=== PATIENT | male | born 1960 | race Caucasian/White ===

== ENCOUNTER 2019-11-03 08:00 | Outpatient (RCR) | payer BC, SELFPAY ==
--- NOTE | 2019-10-25 10:31 | PTOPEVAL ---
PHYSICAL THERAPY EVALUATION AND PLAN OF CARE 10-25-2019 The PT evaluation was completed for the diagnosis of vestibular/ gait imbalance. The plan of treatment is scheduled for 0-1x/week for 6 weeks. Thank you for referring Vamshi to [facility]. Please review, sign, date and return this plan of care OMAR. I agree with and certify that the following plan of care is medically necessary. Referring Physician Date Attending Provider: VIVEK PatrickPT Outpatient Evaluation Start: 10/25/19 09:19 Document 10/25/19 09:20 INDIGO (Rec: 10/25/19 10:31 INDIGO [id number]) Outpatient Past Medical History Neurological History Hx Neurological Disorders No Significant History Cardiovascular History Hx Hypertension Yes: meds control Respiratory History Hx Sleep Apnea Yes: CPAP for sleeping Hx Other Respiratory Disorders Yes: issues sinus infections Gastrointestinal History Hx Gastrointestinal Disorders No Significant History Genitourinary History Hx Other Genitourinary Disorders Yes: prostate problem Musculoskeletal History Hx Musculoskeletal Disorders No Significant History Hematological History Hx Hematological Disorders No Significant History Endocrine History Hx Diabetes Yes: borderline diabetic - watching diet HEENT History Hx Other HEENT Disorders Yes: ears stopped up -ear wax removal few times/yr Integumentary History Hx Other Skin Disorders Yes: fungal infection on groin Psychosocial History Hx Anxiety Yes: on meds Evaluation Information Problem Diagnosis balance/vertigo Onset Jul 22, 2019 Subjective Information gradually more dizziness in Query Text:As Reported By Patient/ July; saw neurologist in Family past for dizziness, not seen recently, but talked to his nurse, and was referred to ENT ; ENT--refer to therapy, may need to have MRI head; completed antibiotics--cleared sinus infection; In past- about 4 yr ago, had vertigo, went to PT, resolved; Have had few short bouts of dizziness with allergies and when first get up in the morning; Diagnostic Tests X-Rays For This Problem No MRI For This Problem No Other Tests For This Problem No Previous Treatments Previous Treatments For This Problem 4 years ago with dizziness had test for brain- was negative Prior Level of Function Activity Level (Last 3 Months) Occupation
--- NOTE | 2019-11-09 11:40 | PCPTNOTE ---
Patient did not show up for scheduled appointment this date. Called patient, and had to leave a message for him to call back.
--- NOTE | 2019-12-09 11:47 | PCPTNOTE ---
PHYSICAL THERAPY DISCHARGE 12-09-2019 Attending Provider: Nan Mcclellan PA-C Patient:Vamshi Sandoval Date of :1960 Mr. Joy received the PT evaluation on October 25 and one treatment session on November 03, for the diagnosis of vestibular issues and balance disorder. He has not returned for any further treatments, therefore he will be discharged from therapy at this time. The goals were not assessed. Thank you for referring Vamshi to [facility]. Please review, sign, date and return this discharge summary OMAR. I have been updated about the patient's current status and I agree with discharge from the above service at this time. Referring Physician Date
== END 2019-12-09 12:36 | disposition hospice, home (50) ==
LOC: ANHPT 08:00
DX: R26.89 Other abnormalities of gait and mobility (principal)
CPT/HCPCS: 97110; 97162

== ENCOUNTER 2025-02-23 11:06 | Outpatient (CLI) | payer BC, SELFPAY ==
--- NOTE | ~2025-02-23 | XR_ITS ---
Lumbosacral Spine: AP and lateral views Clinical History: Pain Findings: The normal lordotic curve is maintained. The vertebral bodies and posterior elements are i ntact. Mild degenerative changes are present lumbar spine. There is severe facet arthropathy, especia lly from L3 through S1. The sacroiliac joints are normally outlined. Impression: Moderate degenerative spondylosis overall, with extensive facet arthropathy. Reviewed, dictated and finalized at location M. Impression: Moderate degenerative spondylosis overall, with extensive facet arthropathy.
== END 2025-02-23 11:07 | disposition home or self-care (01) ==
LOC: MICIMG 11:08
PROVIDERS: PCP Chiropractor; Visit Provider Chiropractor
DX: M99.03 Segmental and somatic dysfunction of lumbar region (principal); M99.04 Segmental and somatic dysfunction of sacral region; M99.05 Segmental and somatic dysfunction of pelvic region; Z85.46 Personal history of malignant neoplasm of prostate; M47.897 Other spondylosis, lumbosacral region
CPT/HCPCS: 72100

== ENCOUNTER 2025-09-16 12:06 | Emergency (ER) | payer BC, SELFPAY ==
--- NOTE | ~2025-09-16 | XR_ITS ---
EXAMINATION: XR chest 2V DATE: 09/16/2025 14:23 INDICATION: Cough. TECHNIQUE: Frontal and lateral views of the chest were obtained. COMPARISON: None. FINDINGS: Heart size is normal. Significant atherosclerotic aorta. No definite acute pulmonary findings. IMPRESSION: 1. No acute pulmonary findings. Severe atherosclerotic aorta. Reviewed, dictated and finalized at location T. NT CARE COORDINATOR
[2025-09-16 12:08] VITALS: BP 143/94; PULSE 77; RESP 16; TEMP 36.4; O2SAT 98
--- OUTSIDE RECORDS SUMMARY | 2025-09-16 12:08 | XMS_ITS | Encounter Summary ---
Author Organization [facility] Address [address] [place] [address] Phone Care Team Providers Care Rewinder Operator Helper Name Role Phone Charlie Berry MD Unavailable Edelmira Ontiveros APRN, CNP Primary Care P rovider Lisa John MD Primary Care Provider Unava ilable Edelmira Ontiveros APRN, CNP Primary Care P rovider Reason for Visit * Reason Comments Medication Refill Encounter Details Date Type Department Care Team (Late st Contact Info) Description 04/30/2024 Refill [facility] - Primary Care - [place] [address] [place] [address] Kaushal Vanegas PAC [address] [place] [address] Medication Refill Social History Tobacco Use Types Packs/Day Years Used Date Smoking Tobacco: Never Smokeless Tobacco: Never Alcohol Use Standard Drinks/Week Comments Yes 0 (1 standard drink = 0.6 oz pur e alcohol) occasionally PHQ-2 Answer Date Recorded PHQ-2 Score 1 05/23/2019 Education Answer Date Recorded What is the highest level of school you have completed or the highest degree you have received? 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 documented in this encounter Plan of Treatment Not on file documented as of this encounter Visit Diagnoses Diagnosis Essential hypertension Unspecified essential hypertension documented in this encounter Additional Health Concerns Assessment Noted Time PHQ-9 Depression Total Score: 1 11/10/19 19 2:00 PM YOUTH ASSOCIATE documented as of this encounter Care Teams Rewinder Operator Helper Relationship Specialty Start Date End Date Edelmira Ontiveros APRN, CRISTIAN [address] [place] [address] PCP - General Advanced Practice Nurse 10/26/23 Lisa John MD PCP - General Urology 04/05/25 04/09/25 Edelmira Ontiveros APRN, LINOTYPER [address] [place] [address] PCP - General Advanced Practice Nurse 04/10/25 Charlie Berry MD [address] [place] [phone] Neurologist Neurology 05/13/18 documented as of this encounter
--- OUTSIDE RECORDS SUMMARY | 2025-09-16 12:08 | XMS_ITS | Encounter Summary ---
Author Organization [facility] Address [address] [place] [address] Phone Care Team Providers Care Panel Machine Operator Name Role Phone Charlie Berry MD Unavailable Edelmira Ontiveros APRN, CNP Primary Care P rovider Lisa oJhn MD Primary Care Provider Unava ilable Edelmira Ontiveros APRN, CNP Primary Care P rovider Reason for Visit * Reason Comments Medication Refill Encounter Details Date Type Department Care Team (Late st Contact Info) Description 02/09/2024 Refill [facility] - Primary Care - [place] [address] [place] [address] Sharmila Yanes MD [address] [place], [place] [id number] Medication Refill Social History Tobacco Use Types [...] on file Legal Sex Male 9:40 AM CLAIMS REPRESENTATIVE Gender Identity Not on file Sexual Orientation Not on file 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 Requested Prescriptions Pending Prescriptions Disp Refills famotidine (PEPCID) 40 MG Tablet [Pharmacy Med Name: FAMOTIDINE 40MG TABLETS] 180 Tablet 0 Sig: TAKE 1 TABLET BY MOUTH TWICE DAILY H2 Antagonists Protocol Passed - 02/09/2024 12:09 PM Passed - Visit with relevant provider in past 12 months or upcoming 90 days Recent Visits Date Type Provider Dept 12/15/23 Office Visit Lily Mcmahan, [facility] 10/29/23 Office Visit Lily Mcmahan, [facility] 10/26/23 Office Visit Edelmira Ontiveros APRN, CRISTIAN [facility] 06/01/23 Office Visit Kaushal Vanegas, [facility] 04/24/23 Office Visit Sharmila Yanes MD [facility] Showing recent visits within past 365 days and meeting all other requirements Future Appointments Date Type Provider Dept 04/25/24 Appointment Edelmira Ontiveros APRN, SYSTEMS PROGRAM MANAGER [facility] Showing future appointments within next 90 days and meeting all other requirements documented in this encounter Plan of Treatment Not on file documented as of this encounter Visit Diagnoses Not on filedocumented in this encounter Additional Health Concerns Infection Onset Date Last Indicated Resolved Time COVID - 19 04/05/2024 04/05/2024 04/05/2024 11:0 6 AM CDT COVID - 19 Confirmed 04/05/2024 04/05/2024 024 12:19 AM CDT Assessment Noted Time PHQ-9 Depression Total Score: 1 11/10/19 19 2:00 PM CLAIMS REPRESENTATIVE documented as of this encounter Care Teams Panel Machine Operator Relationship Specialty Start Date End Date Edelmira Ontiveros APRN, SYSTEMS PROGRAM MANAGER [address] [place] [address] PCP - General Advanced Practice Nurse 10/26/23 Lisa John MD PCP - General Urology 04/05/25 04/09/25 Edelmira Ontiveros APRN, SYSTEMS PROGRAM MANAGER [address] [place] [address] PCP - General Advanced Practice Nurse 04/10/25 Charlie Berry MD [address] [place] [address] [place] [phone] Neurologist Neurology 05/13/18 documented as of this encounter
--- OUTSIDE RECORDS SUMMARY | 2025-09-16 12:08 | XMS_ITS | Encounter Summary ---
Author Organization [facility] Address [address] [place] [address] Care Team Providers Care Hogshead Weigher Name Role Phone Martine Joseph MD Unavailable [phone] Nanda Rizo MD Primary Care Provide r Lisa John MD Unavailable [phone] Encounter Details Date Type Department Care Team (Late st Contact Info) Description 08/23/2025 Results Follow-Up [facility] [place] [id number] [place] [address] Jacinta Sarah NP [address] [facility] [address] [place] [address] Throat culture Throat Social History Tobacco Use Types Packs/Day Years Used Date Smoking Tobacco: Never Passive Smoke Exposure: Never Smokeless Tobacco: Never Alcohol Use Standard Drinks/Week Comments Yes 2 (1 standard drink = 0.6 oz pur e alcohol) PHQ-2 Answer Date Recorded PHQ-2 Total Score (If total score is 3 or more points, staff should administer the PHQ-9) 0 07/31/2025 Social Connection and Isolation Panel Answer Date Recorded In a typical week, how many times do you talk on the phone with family, friends, or neighbors? Three times a week 07/18/2025 How often do you get togethe r with friends or relatives? Three times a week 07/18/2025 How often do you attend chur ch or sikhism services? More than 4 times per year 07/18/2025 Do you belong to any clubs o r organizations such as presybeterian groups, unions, fraternal or athletic groups, or school groups? No 07/18/2025 How often do you attend meet ings of the clubs or organizations you belong to? Never 07/18/2025 Are you , , di vorced, , never , or living with a partner? 07/18/2025 AUDIT-C Answer Date Recorded Q1: How often do you have a drink containing alc ohol? 2-4 times a month 07/18/2025 Average Number of Drinks Not on file 025 Frequency of Binge Drinking Not on file 06/22 Overall Financial Resource Strain (CARDIA) Answe r Date Recorded How hard is it for you to pa y for the very basics like food, housing, medical care, and heating? Not hard at all 07/18/2025 Hunger Vital Sign Answer Date Recorded Within the past 12 months, y ou worried that your food would run out before you got the money to buy more. Never true 07/18/20 25 Within the past 12 months, t he food you bought just didn't last and you didn't have money to get more. Never true 07/18/2025 PRAPARE - Transportation Answer Date Re corded In the past 12 months, has l ack of transportation kept you from medical appointments or from getting medications? No 06/22 In the past 12 months, has l ack of transportation kept you from meetings, work, or from getting things needed for daily living? No 07/18/2025 Housing Stability Vital Sign Answer Salty e Recorded In the last 12 months, was t here a time when you were not able to pay the mortgage or rent on time? No 07/18/2025 In the past 12 months, how m any times have you moved where you were living? 0 07/18/2025 At any time in the past [address] [facility], were you homeless or living in a skilled nursing (including now)? No 07/18/2025 [facility] Utilities Answer Date Recorded In the past 12 months has th e electric, gas, oil, or water company threatened to shut off services in your home? No 07/18/2025 Personal Safety Answer Date Recorded Have you ever been in or are you currently in a harmful physical or emotional relationship or is someone making you feel afraid or unsafe? Denies 07/18/2025 Sex and Gender Information Value Date Recorded Sex Assigned at Not on file Legal Sex Male 8:39 PM EXECUTIVE SERVICES ADMINISTRATOR Gender Identity Not on file Sexual Orientation Not on file documented as of this encounter Plan of Treatment Not on file documented as of this encounter Visit Diagnoses Not on filedocumented in this encounter Care Teams Hogshead Weigher Relationship Specialty Start Date End Date Nanda Rizo MD [address] [facility] [address] [place] [address] PCP - General Family Medicine 05/01/25 Martine Joseph MD [address] [facility] [address] [place] [address] Consulting Physician Cardiology 05/01/25 Lisa John MD [address] [facility] [address] [place] [address] Referring Physician Urology 05/01/25 documented as of this encounter
--- OUTSIDE RECORDS SUMMARY | 2025-09-16 12:08 | XMS_ITS | Clinical Summary ---
Author Organization [facility] Address [address] [place] [address] Care Team Providers Care Ladder Operator Name Role Phone Teri Quevedo MD Primary Care Provider [phone] Allergies No known active allergies Immunizations Immunization Administration Dates Next Due Tdap (Boostrix) 05/17/2021 Social History Tobacco Use Types Packs/Day Years Used Date Smoking Tobacco: Never Assessed Sex and Gender Information Value Date Recorded Sex Assigned at Not on file Legal Sex Male 7:20 PM CDT Gender Identity Not on file Sexual Orientation Not on file Last Filed Vital Signs Vital Sign Reading Time Taken Comments Blood Pressure 162/109 05/17/2021 7:31 PM CDT Pulse 82 05/17/2021 7:31 PM CDT Temperature 36.8 C (98.2 F) 05/17/2021 7:31 PM CDT Respiratory Rate 18 05/17/2021 7:31 PM CDT Oxygen Saturation 95% 05/17/2021 7:31 PM CDT Inhaled Oxygen Concentration - - Weight 110 kg (242 lb 8.1 oz) 05/17/2021 7:31 PM CDT Height 180.3 cm (5' 11) 05/17/2021 7:31 PM CDT Body Mass Index 33.82 05/17/2021 7:31 PM CDT Plan of Treatment Health Maintenance Due Date Last Done Comments Colorectal Cancer Screening Colonoscopy (10 Years) 1960 Hepatitis C 1976 Pneumococcal Vaccine: 50+ Ye ars (1 of 1 - PCV) 2008 Zoster Vaccines (1 of 2) 2008 COVID-19 Vaccine (2024-2 6 season) 2025 Influenza Adult (#1) 2025 DTaP, Tdap and Td Vaccines ( 2 - Td or Tdap) 05/17/2031 05/17/2021 RSV Immunization or 60+ Years (1 - 1-dose 75+ series) 2033 Hepatitis A Vaccines Aged Out No long er eligible based on patient's age to complete this topic Meningococcal B Vaccine Aged Out No l onger eligible based on patient's age to complete this topic Meningococcal Vaccine Aged Out No bhargavi noy eligible based on patient's age to complete this topic RSV Immunizations Under 20 Months Aged Out No longer eligible based on patient's age to complete this topic Insurance Care Teams Ladder Operator Relationship Specialty Start Date End Date Teri Quevedo MD PCP - General FAMILY PRACTICE 05/17/21
--- OUTSIDE RECORDS SUMMARY | 2025-09-16 12:08 | XMS_ITS | Encounter Summary ---
Author Organization [facility] Address [address] [place] [address] Phone Care Team Providers Care Civil Technician Name Role Phone Charlie Berry MD Unavailable Edelmira Ontiveros APRN, CRISTIAN Primary Care P rovider Lisa John MD Primary Care Provider Unava ilable Edelmira Ontiveros APRN, CRISTIAN Primary Care P rovider Reason for Visit * Reason Comments Medication Refill Encounter Details Date Type Department Care Team (Late st Contact Info) Description 09/11/2024 Refill [facility] - Primary Care - [place] [address] [place] [address] Edelmira Ontiveros APRN, JEWEL STAKER [address] [place], [place] [id number] Medication Refill Social History Tobacco Use Types [...] on file Legal Sex Male 9:40 AM ALUMINUM CAN COLLECTOR Gender Identity Not on file Sexual Orientation Not on file 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 Not on file Not on file documented as of this encounter Plan of Treatment Not on file documented as of this encounter Visit Diagnoses Diagnosis Essential hypertension Unspecified essential hypertension documented in this encounter Additional Health Concerns Assessment Noted Time PHQ-9 Depression Total Score: 1 11/10/19 19 2:00 PM ALUMINUM CAN COLLECTOR documented as of this encounter Care Teams Civil Technician Relationship Specialty Start Date End Date Edelmira Ontiveros APRN, JEWEL STAKER [address] [place] [address] PCP - General Advanced Practice Nurse 10/26/23 Lisa John MD PCP - General Urology 04/05/25 04/09/25 Edelmira Ontiveros APRN, JEWEL STAKER [address] [place] [address] PCP - General Advanced Practice Nurse 04/10/25 Charlie Berry MD [facility] [facility] [place] [place] [address] [place] [phone] Neurologist Neurology 05/13/18 documented as of this encounter
--- OUTSIDE RECORDS SUMMARY | 2025-09-16 12:08 | XMS_ITS | Encounter Summary ---
Author Organization [facility] Address [address] [place] [address] Phone Care Team Providers Care Product Evangelist Name Role Phone Charlie Berry MD Unavailable Edelmira Ontiveros APRN, CRISTIAN Primary Care P rovider Lisa John MD Primary Care Provider Unava ilable Edelmira Ontiveros APRN, CRISTIAN Primary Care P rovider Reason for Visit * Reason Comments Medication Refill Encounter Details Date Type Department Care Team (Late st Contact Info) Description 01/08/2024 Refill [facility] [address] [place] [address] Sharmila Yanes MD [address] [place] [address] Medication Refill Social History Tobacco Use Types [...] on file Legal Sex Male 9:40 AM TISSUE RECOVERY TECHNICIAN Gender Identity Not on file Sexual Orientation Not on file 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 Requested Prescriptions Pending Prescriptions Disp Refills escitalopram (LEXAPRO) 10 MG Tablet [Pharmacy Med Name: ESCITALOPRAM 10MG TABLETS] 90 Tablet 1 Sig: TAKE 1 TABLET BY MOUTH DAILY SSRI (6 Month Refill Only) Protocol Failed - 01/08/2024 2:30 PM Failed - Has an encounter in the past 6 months with a depression, anxiety, adjustment disorder, OCD, or PTSD visit diagnosis Passed - Visit with relevant provider in past 6 months or upcoming 90 days Recent Visits Date Type Provider Dept 12/15/23 Office Visit Lily Mcmahan, [facility] 10/29/23 Office Visit Lily Mcmahan, [facility] 10/26/23 Office Visit Edelmira Ontiveros APRN, STEEL FABRICATING SUPERVISOR [facility] Showing recent visits within past 182 days and meeting all other requirements Future Appointments No visits were found meeting these conditions. Showing future appointments within next 90 days and meeting all other requirements Passed - Patient has established therapy with [facility] for at least 6 months documented in this encounter Plan of Treatment Not on file documented as of this encounter Visit Diagnoses Diagnosis Anxiety Anxiety state, unspecified documented in this encounter Additional Health Concerns Infection Onset Date Last Indicated Resolved Time COVID - 19 04/05/2024 04/05/2024 04/05/2024 11:0 6 AM CDT COVID - 19 Confirmed 04/05/2024 04/05/202404/25/2 024 12:19 AM CDT Assessment Noted Time PHQ-9 Depression Total Score: 1 11/10/19 19 2:00 PM TISSUE RECOVERY TECHNICIAN documented as of this encounter Care Teams Product Evangelist Relationship Specialty Start Date End Date Edelmira Ontiveros APRN, CRISTIAN [address] [place] [address] PCP - General Advanced Practice Nurse 10/26/23 Lisa John MD PCP - General Urology 04/05/25 04/09/25 Edelmira Ontiveros APRN, STEEL FABRICATING SUPERVISOR [address] [place] [address] PCP - General Advanced Practice Nurse 04/10/25 Charlie Berry MD [address] [place] [address] [place] [phone] Neurologist Neurology 05/13/18 documented as of this encounter
--- OUTSIDE RECORDS SUMMARY | 2025-09-16 12:08 | XMS_ITS | Encounter Summary ---
Author Organization [facility] Address [address] [place] [address] Phone Care Team Providers Care Quality Control Scientist Name Role Phone Teri Quevedo MD Primary Care Provider + [phone] Charlie Berry MD Unavailable Sharmila Yanes MD Primary Care Provider + [phone] Edelmira Ontiveros APRN, [facility] Primary Care P rovider Lisa John MD Primary Care Provider Unava ilable Edelmira Ontiveros APRN, [facility] Primary Care P rovider Reason for Visit * Reason Onset Date Comments Medication Refill 11/27/2020 Encounter Details Date Type Department Care Team (Late st Contact Info) Description 11/27/2020 Refill [facility] - Primary Care - [place] [address] [place] [address] Teri Quevedo MD [address] [place] [address] Medication Refill Social History Tobacco Use Types [...] Bachelor's degree (e.g., BA, AB, BS) 08/24/2020 Sex and Gender Information Value Date Recorded Sex Assigned at Not on file Legal Sex Male 9:40 AM EDUCATOR SENIOR CLINICAL Gender Identity Not on file Sexual Orientation Not on file 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 ATOR SENIOR CLINICAL * Telephone Encounter - Minal Wang - 11/27/2020 10:46 AM CST Received a faxed Rx request from pharmacy. Reordered refill medication(s) requested and pended for nurse and physician/ELLE review. Refill encounter routed to nurse Quangrirohith's pool for processing. ATOR SENIOR CLINICAL documented in this encounter Plan of Treatment Not on file documented as of this encounter Visit Diagnoses Not on filedocumented in this encounter Additional Health Concerns Infection Onset Date Last Indicated Resolved Time COVID - 19 Confirmed 03/27/2022 03/27/2022 022 12:16 AM CDT COVID - 19 08/11/2022 08/11/2022 08/21/2022 12:1 6 AM EDUCATOR SENIOR CLINICAL COVID - 19 01/22/2023 01/22/2023 02/01/2023 12:1 6 AM CDT COVID - 19 04/05/2024 04/05/2024 04/05/2024 11:0 6 AM CDT COVID - 19 Confirmed 04/05/2024 04/05/2024 024 12:19 AM CDT Assessment Noted Time PHQ-9 Depression Total Score: 1 11/10/19 19 2:00 PM EDUCATOR SENIOR CLINICAL documented as of this encounter Care Teams Quality Control Scientist Relationship Specialty Start Date End Date Teri Quevedo MD PCP - General Family Medicine 10/15/15 10/23/22 Sharmila Yanes MD [address] [place] [address] PCP - General Family Medicine 10/24/22 10/25/23 Edelmria Ontiveros APRN, ASSESSMENT NURSE PRACTITIONER [address] [place] [address] PCP - General Advanced Practice Nurse 10/26/23 Lisa John MD PCP - General Urology 04/05/25 04/09/25 Edelmira Ontiveros APRN, ASSESSMENT NURSE PRACTITIONER [address] [place] [address] PCP - General Advanced Practice Nurse 04/10/25 Charlie Berry MD [address] [place] [address] [place] [address] [place] [phone] Neurologist Neurology 05/13/18 documented as of this encounter
--- OUTSIDE RECORDS SUMMARY | 2025-09-16 12:08 | XMS_ITS | Clinical Summary ---
Author Organization [facility] Address [address] [place] [address] Phone Care Team Providers Care Gravure Press Set Up Operator Name Role Phone Charlie Berry MD Unavailable Edelmira Ontiveros APRN, GROUP HOME WORKER Primary Care P rovider Allergies Active Allergy Reactions Criticality Noted Date Comments Ashok Inhibitors Nausea,Other (see Comments) 09/2016 Exacerbates GLRD Medications Aspirin 81 MG Tablet Take 162 mg by mouth daily. Active Magnesium 250 MG Tablet Take 250 mg by mouth nightly. Active aqlaodkl-detswwwwb-ot xamethasone (Maxitrol) 0.1 % Suspension Place 1 Drop in affected eye(s) 4 times daily. 5 mL 12/15/19 24 Active Additional Information Patient not taking.Reported on 02/20/2025 fluticasone (FLONASE) 50 MCG/ACT Suspension 1 [place] by Nasal route daily. Use in each nostril as directed. 18.2 mL 12/15/19 24 Active Elrama-3 Fatty Acids (fish oil) 1200 MG Capsule Take 1,200 mg by mouth daily. Active gabapentin (NEURONTIN) 100 MG CapsuleIndications:Ar thralgia of right temporomandibular joint,Pain, dental TAKE 1 CAPSULE BY MOUTH THREE TIMES DAILY 270 Capsule 1 12/15/19 25 Active Additional Information Patient not taking.Reported on 02/20/2025 famotidine (PEPCID) 40 MG Tablet TAKE 1 TABLET BY MOUTH TWICE DAILY 180 Tablet 1 03/01/20 25 Active losartan (COZAAR) 100 MG TabletIndications:Ess ential (primary) hypertension TAKE 1 TABLET BY MOUTH DAILY 90 Tablet 03/27/20 25 Active escitalopram (LEXAPRO) 10 MG TabletIndications:Anx iety Take 1 Tablet by mouth daily. 90 Tablet 1 03/28/20 25 Active metoprolol Succinate (TOPROL-XL) 50 MG TABLET SR 24 HRIndications:Essenti al hypertension TAKE 1 TABLET BY MOUTH DAILY 90 Tablet 05/18/20 25 Active hydroCHLOROthiazide 25 MG TabletIndications:Ess ential hypertension TAKE 1 TABLET BY MOUTH DAILY 90 Tablet 06/28/20 25 Active atorvastatin (LIPITOR) 20 MG Tablet TAKE 1 TABLET BY MOUTH DAILY 90 Tablet 07/24/20 25 Active tamsulosin (FLOMAX) 0.4 MG Capsule TAKE 1 CAPSULE BY MOUTH DAILY 90 Capsule 07/24/20 25 Active Active Problems Problem Noted Date Diagnosed Date Prostate cancer 03/28/2021 Eczema 03/28/2021 Daytime sleepiness 03/28/2021 Obesity (BMI 30.0-34.9) 07/19/2018 Laryngopharyngeal reflux 04/21/2017 Prediabetes 12/29/2016 Essential (primary) hypertension 11/12/2015 Hyperlipidemia 11/12/2015 Benign prostatic hyperplasia 11/12/2015 Anxiety disorder 11/12/2015 Benign paroxysmal vertigo 11/12/2015 Osteoarthritis of knee 11/12/2015 STEFANIE on CPAP 11/12/2015 Resolved Problems Problem Noted Date Diagnosed Date Resolved Date Elevated PSA 01/06/2018 02/20/2025 Encounters Date Type Department Care Team Description 07/22/2025 Refill [facility] [place], [place] [address] [place] [address] Edelmira Ontiveros APRN, CNP Medication Refill 07/22/2025 Refill [facility] [place], [place] [address] [place] [address] Edelmira Ontiveros APRN, CNP Medication Refill 07/21/2025 Refill [facility] [place], [place] [address] [place] [address] Edelmira Ontiveros APRN, CNP Medication Refill 06/28/2025 [facility] [place] [address] [place] [address] Edelmira Ontiveros APRN, CNP Medication Refill from Last 3 Months Immunizations Immunization Administration Dates Next Due Covid-19, Mrna, Lnp-s, PF, 1 00 mcg/0.5 mL Dose (Moderna) 09/04/2021,01/29/2021,01/01/2021 Covid-19, Mrna, Lnp-s, Pf, T ris-sucrose, 30 Mcg/0.3 Ml (Pfizer) 10/26/2023 Influenza Vaccine 09/25/2023,2022,06/21/20 21 Influenza Vaccine greater than 3 yrs 07/16/2015 Influenza Vaccine, Quadrivalent, PF 07/01/2016 Influenza, Seasonal, Injectable, Undefined 07/19,07/19/2015,08/07/2014 Pneumococcal conjugate PCV20 , polysaccharide [id number] conjugate, adjuvant, PF 10/24/2022 TDAP Vaccine 05/17/2021,07/08/2015,08/06/2010 Zoster Vaccine Recombinant 04/25/2023,12/16/2021 ,12/13/2021 Family History Medical History Relation Name Comments Heart Attack Father Cancer Mother Relation Name Status Comments Father Mother Social History Tobacco Use Types Packs/Day Years Used Date Smoking Tobacco: Never Smokeless Tobacco: Never Tobacco Cessation:Counseling Given: No Alcohol Use Standard Drinks/Week Comments Yes 0 (1 standard drink = 0.6 oz pur e alcohol) occasionally [facility] Utilities Answer Date Recorded In the past 12 months has [employer], gas, oil, or water [employer] threatened to shut off services in your home? Patient declined 01/10/2025 Social Connection and Isolation Panel Answer Date Recorded In a typical week, how many times do you talk on the phone with family, friends, or neighbors? Patient declined 01/10/2025 How often do you get togethe r with friends or relatives? Patient declined 01/10/2025 How often do you attend presybeterian or hoahaoism serv ices? Patient declined 01/10/2025 Do you belong to any clubs o r organizations such as presybeterian groups, unions, fraternal or athletic groups, or school groups? Patient declined 01/10/2025 How often do you attend meet ings of the clubs or organizations you belong to? Patient declined 01/10/2025 Are you , , di vorced, , never , or living with a partner? Patient declined 01/10/2025 AUDIT-C Answer Date Recorded Q1: How often do you have a drink containing alc ohol? Patient declined 01/10/2025 Q2: How many drinks containi ng alcohol do you have on a typical day when you are drinking? Patient declined 01/10/2025 Q3: How often do you have si x or more drinks on one occasion? Patient declined 01/10/2025 Overall Financial Resource Strain (CARDIA) Answe r Date Recorded How hard is it for you to pa y for the very basics like food, housing, medical care, and heating? Patient declined 01/10/2025 PHQ-2 Answer Date Recorded Total Score - Questions 1-9 0 06/0 10/2024 [facility] - Occupational Stress Questionnaire Answer Date Recorded Do you feel stress - tense, restless, nervous, or anxious, or unable to sleep at night because your mind is troubled all the time - these days? Patient declined 01/10/2025 Exercise Vital Sign Answer Date Recorde d On average, how many days pe r week do you engage in moderate to strenuous exercise (like a brisk walk)? Patient declined On average, how many minutes do you engage in exercise at this level? Patient declined 01/10/2025 Hunger Vital Sign Answer Date Recorded Within the past 12 months, y ou worried that your food would run out before you got the money to buy more. Patient declined Within the past 12 months, t he food you bought just didn't last and you didn't have money to get more. Patient declined PRAPARE - Transportation Answer Date Re corded In the past 12 months, has l ack of transportation kept you from medical appointments or from getting medications? Patient declined 01/10/2025 In the past 12 months, has l ack of transportation kept you from meetings, work, or from getting things needed for daily living? Patient declined 01/10/2025 Housing Stability Vital Sign Answer Salty e Recorded In the last 12 months, was t here a time when you were not able to pay the mortgage or rent on time? Patient declined 01/11/20 25 In the past 12 months, how m any times have you moved where you were living? 0 01/10/2025 [facility] were you [facility] or living in a skilled nursing (including now)? Patient declined 01/10/2025 Education Answer Date Recorded What is the highest level of school you have completed or the highest degree you have received? 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 Not on file Not on file Not on file Last Filed Vital Signs Vital Sign Reading Time Taken Comments Blood Pressure 128/80 02/20/2025 4:01 PM CDT Pulse 90 02/20/2025 3:25 PM CDT Temperature 36.4 C (97.6 F) 02/20/2025 3:25 PM CDT Respiratory Rate 18 02/20/2025 3:25 PM CDT Oxygen Saturation 97% 02/20/2025 3:25 PM CDT Inhaled Oxygen Concentration - - Weight 117 kg (258 lb) 02/20/2025 3:25 PM CDT Height 180.3 cm (5' 11) 02/20/2025 3:25 PM CDT Body Mass Index 35.98 02/20/2025 3:25 PM CDT Plan of Treatment Health Maintenance Due Date Last Done Comments Immunochemical Fecal Occult Blood 2003 Respiratory Syncytial Virus (RSV) Immunization (Adult) (1 - Risk 50-74 years 1-dose series) 2008 Colonoscopy 07/22/2022 07/22/2012 Influenza Immunization (#1) 2025 01/0 01/2024, 2022, 06/21/2021, Additional history exists SARS-COV-2 Immunization ( season) 2025 10/26/2023, 09/04/2021, 01/29/2021, Additional history exists Cologuard 12/01/2027 11/30/2024 Colorectal Cancer Screening 12/01/2027 Td Immunization Every 10 Years (Adults With 1 Tdap) 05/17/2031 05/17/2021, 07/08/2015, 08/06/2010 PSA Discussion Completed 02/21/2020, 07/22, 01/25/2019, Additional history exists Pneumococcal Immunization (50+ years) Completed 10/24/2022 Pneumococcal Immunization Combined Discontinued 10/24/2022 Hepatitis C Virus (HCV) Screening Completed 04/24/2023 Zoster Immunization Completed 04/25/2023, 12/16/2021, 12/13/2021 Hepatitis B Immunization Aged Out No longer eligible based on patient's age to complete this topic Human Papillomavirus (HPV) Immunization (No Doses Required) Completed Meningococcal Immunization (ACWY) Aged Out No longer eligible based on patient's age to complete this topic Rotavirus Immunization Aged Out No lo nger eligible based on patient's age to complete this topic Procedures Procedure Name Priority Date/Time Associated Diagnosis Comments COLOGUARD Routine 11/30/2024 9:00 AM CDT Encounter for colorectal cancer screening using Cologuard test HEPATITIS C ANTIBODY Routine 04/24/2023 10:20 AM CDT Physical exam, annual PSA DIAGNOSTIC,TOTAL Routine 02/21/2020 10:23 AM CDT Elevated PSA from Last 3 Months or Most Recently Relevant to Health Maintenance Results * COLOGUARD (11/30/2024 9:00 AM CDT) Cologuard Negative Negative [facility] Comment: NEGATIVE TEST RESULT. A negative Cologuard result indicates a low likelihood that a colorectal cancer (CRC) or advanced adenoma (adenomatous polyps with more advanced pre-malignant features) is present. The chance that a person with a negative Cologuard test has a colorectal cancer is less than 1 in 1500 (negative predictive value >99.9%) or has an advanced adenoma is less than 5.3% (negative predictive value 94.7%). These data are based on a prospective cross-sectional study of 10,000 individuals at average risk for colorectal cancer who were screened with both Cologuard and colonoscopy. (Kelton Garland al, N Engl J Med 2014;370(14):8938-5561) The normal value (reference range) for this assay is negative. COLOGUARD RE-SCREENING RECOMMENDATION: Periodic colorectal cancer screening is an important part of preventive healthcare for asymptomatic individuals at average risk for colorectal cancer. Following a negative Cologuard result, the [place] Cancer Society and U.S. Multi-Society Task Force screening guidelines recommend a Cologuard re-screening interval of 3 years. References: [place] [employer] Society Guideline for Colorectal Cancer Screening: https://www.cancer.org/cancer/hsgiy-vkions-kogepe/mzxrssqxd-xclemarcq-trtprma/ acs-recommendations.html.; Ori MAGAÑA, Ron MURPHY, Judy NavarroK, Colorectal Cancer Screening: Recommendations for Physicians and Patients from the U.S. Multi-Society Task Force on Colorectal Cancer Screening , Am J Gastroenterology 2017; 112:5042-1086. TEST DESCRIPTION: Composite algorithmic analysis of stool DNA-biomarkers with hemoglobin immunoassay. Quantitative values of individual biomarkers are not reportable and are not associated with individual biomarker result reference ranges. Cologuard is intended for colorectal cancer screening of adults of either sex, 45 years or older, who are at average-risk for colorectal cancer (CRC). Cologuard has been approved for use by the U.S. FDA. The performance of Cologuard was established in a cross sectional study of average-risk adults aged 50-84. Cologuard performance in patients ages 45 to 49 years was estimated by sub-group analysis of near-age groups. Colonoscopies performed for a positive result may find as the most clinically significant lesion: colorectal cancer [4.0%], advanced adenoma (including sessile serrated polyps greater than or equal to 1cm diameter) [20%] or non- advanced adenoma [31%]; or no colorectal neoplasia [45%]. These estimates are derived from a prospective cross-sectional screening study of 10,000 individuals at average risk for colorectal cancer who were screened with both Cologuard and colonoscopy. (Kelton Mendes et al, N Engl J Med 2014;370(14):8460-6443.) Cologuard may produce a false negative or false positive result (no colorectal cancer or precancerous polyp present at colonoscopy follow up). A negative Cologuard test result does not guarantee the absence of CRC or advanced adenoma (pre-cancer). The current Cologuard screening interval is every 3 years. ([place] Cancer Society and U.S. Multi-Society Task Force). Cologuard performance data in a 10,000 patient pivotal study using colonoscopy as the reference method can be accessed at the following location: www.[employer]/results. Additional description of the Cologuard test process, warnings and precautions can be found at www.[employer].Cole Martin. Stool 11/30/2024 9:00 AM CDT 12/01/2024 9:49 AM CDT Edelmira Ontiveros APRN, CNP BODY FLUIDS & S TOOLS ORDERABLES Final Result [employer], [facility] [address] [place] [address], [employer] [address] [place] [address] * HEPATITIS C ANTIBODY (04/24/2023 10:20 AM CDT) hepatitis C antibody 0.07 <1 S/CO [facility] [id number] B 04/24/2023 10:28 PM CDT [facility] Comment: Signal/Cutoff ratio < 0.79 is Nondetected Signal/Cutoff ratio 0.80-0.99 is Grayzone Signal/Cutoff ratio > 0.99 is Detected Supplemental assays are recommended if signal/cutoff ratio is >/=1.00. Signal/cutoff ratio result >/= 5.00 is 97% predictive of positivity for recombinant immunoblot assay (RIBA) and will be reported to the [place] Department of Public Health as required. Blood Venipuncture / Unknown 04/24/2023 10:20 AM CDT 04/24/2023 10:20 AM CDT us Sharmila Yanes MD CHEMISTRY ORDERABLES Final R esult [facility] [address] [place] [address], [place] * (ABNORMAL) PSA DIAGNOSTIC,TOTAL (02/21/2020 10:23 AM CDT) PSA, TOTAL (PROSTATIC SPECIFIC ANTIGEN) 8.46(H) <=4.00 ng/mL 02/21/2020 1:43 PM CDT [facility] Blood Venipuncture / Unknown 02/21/2020 10:23 AM CDT 02/21/2020 10:23 AM CDT Narrative [facility] - 02/21/2020 1:43 PM CDT PSA NOTE: The PSA value should be used in conjunction with information available from clinical evaluation and other diagnostic procedures. Carleen Malin PAC CHEMISTRY ORDERABLES Sun l Result Performing Organization Address City/[facility] Co de Phone Number [facility] [address] [place] [address] from Last 3 Months or Most Recently Relevant to Health Maintenance Insurance [facility] Care Teams Gravure Press Set Up Operator Relationship Specialty Start Date End Date Edelmira Ontiveros APRN, GROUP HOME WORKER [address] [place] [address] PCP - General Advanced Practice Nurse 04/10/25 Charlie Berry MD [address] [address] Neurologist Neurology 05/13/18
--- OUTSIDE RECORDS SUMMARY | 2025-09-16 12:08 | XMS_ITS | Encounter Summary ---
Author Organization [facility] Address [address] [place] [address] Phone Care Team Providers Care Casino Shift Manager Name Role Phone Teri Quevedo MD Primary Care Provider + [phone] Charlie Berry MD Unavailable Sharmila Yanes MD Primary Care Provider + [phone] Edelmira Ontiveros APRN, [facility] Primary Care P rovider Lisa John MD Primary Care Provider Unava ilable Edelmira Ontiveros APRN, [facility] Primary Care P rovider Reason for Visit * Reason Comments Medication Refill Encounter Details Date Type Department Care Team (Late st Contact Info) Description 04/25/[address] 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 No / Unsure 03/28/2021 10:13 AM CDT documented as of this encounter Plan of Treatment Not on file documented as of this encounter Visit Diagnoses Not on filedocumented in this encounter Additional Health Concerns Infection Onset Date Last Indicated Resolved Time COVID - 19 Confirmed 03/27/2022 03/27/2022 022 12:16 AM CDT COVID - 19 08/11/2022 08/11/2022 08/21/2022 12:1 6 AM STOVE CARRIAGE OPERATOR COVID - 19 01/22/2023 01/22/2023 02/01/2023 12:1 6 AM CDT COVID - 19 04/05/2024 04/05/2024 04/05/2024 11:0 6 AM CDT COVID - 19 Confirmed 04/05/2024 04/05/2024 024 12:19 AM CDT Assessment Noted Time PHQ-9 Depression Total Score: 1 11/10/19 19 2:00 PM STOVE CARRIAGE OPERATOR documented as of this encounter Care Teams Casino Shift Manager Relationship Specialty Start Date End Date Teri Quevedo MD PCP - General Family Medicine 10/15/15 10/23/22 Sharmila Yanes MD [address] [place] [address] PCP - General Family Medicine 10/24/22 10/25/23 Edelmira Ontiveros APRN, STATION INSTALLER [address] [address] PCP - General Advanced Practice Nurse 10/26/23 Lisa John MD PCP - General Urology 04/05/25 04/09/25 Edelmira Ontiveros APRN, STATION INSTALLER [address] [address] PCP - General Advanced Practice Nurse 04/10/25 Charlie Berry MD [address] [place] [address] [place] [id number] Neurologist Neurology 05/13/18 documented as of this encounter
--- OUTSIDE RECORDS SUMMARY | 2025-09-16 12:08 | XMS_ITS | Clinical Summary ---
Author Organization [facility] Address [address] [place] [address] Care Team Providers Care Merchandise Deliverer Name Role Phone Unavailable Primary Care Provider Unavailabl e Source Comments [facility],non-owned Affiliates and Associated Physician Practices is amultiple site organization consisting of ambulatory clinics and hospital sitesin [place], [place], [place] and [place]. This disclosure is being madepursuant to the Care Everywhere program and may not contain all information available regarding this patient. Last updated 18.[facility] Allergies Active Allergy Reactions Criticality Noted Date Comments Ashok Inhibitors Other 04/21/2017 Exacerbates GLRD Medications * Be aware that medications may not be up to date on this document. Alwaysverify current medications with the patient. atorvastatin (LIPITOR) 20 MG tablet Take 20 mg by mouth at bedtime 3 5 Active escitalopram (LEXAPRO) 10 MG tablet Take 10 mg by mouth once daily 3 5 Active tamsulosin (FLOMAX) 0.4 MG capsule Take 0.8 mg by mouth once daily 3 6 Active aspirin (ASPIRIN) 81 MG tablet Take 162 mg by mouth once daily Active metoprolol succinate XL 24hr (TOPROL XL) 25 MG tablet Take 25 mg by mouth once daily 7 Active nortriptyline (PAMELOR) 10 MG capsule Take 1 Cap by mouth at bedtime 90 Cap 3 7 Active Additional Information Patient taking differently:10 mg Oral AT BEDTIME,Pt states that he has only been taking this once a week or so., Reported on 05/10/2019 meclizine (ANTIVERT) 25 MG tablet Take 1 Tab by mouth 3 times daily as needed for Dizziness 30 Tab 08/02/201 7 Active Additional Information Patient not taking.Reported on 05/10/2019 VITAMIN E PO Take 1 capsule by mouth every other day Active Cyanocobalamin (VITAMIN B 12 PO) Take 1 tablet by mouth once daily Active losartan (COZAAR) 100 MG tablet Take 100 mg by mouth once daily Active famotidine (PEPCID) 20 MG tablet Take 40 mg by mouth once daily Active meloxicam (MOBIC) 15 MG tablet Take 15 mg by mouth once daily as needed Active magnesium 250 MG tablet Take 1 tablet by mouth once daily 9 Active Active Problems Problem Noted Date Diagnosed Date Obesity 12/14/2015 Anxiety disorder 11/12/2015 Enlarged prostate without lo wer urinary tract symptoms (luts) 11/12/2015 Benign paroxysmal vertigo 11/12/2015 Essential (primary) hypertension 11/12/2015 Obstructive sleep apnea 11/12/2015 Osteoarthritis of knee 11/12/2015 Hyperlipidemia HTN (hypertension) Enlarged prostate Resolved Problems Problem Noted Date Diagnosed Date Resolved Date Vertigo 12/11/2015 04/22/2017 Family History Medical History Relation Name Comments Anxiety Disorder Brother 2 Ulcerative Colitis Brother 3 Parkinson's Disease Brother 4 [place] Father Anxiety Disorder Mother Tumor Mother Relation Name Status Comments Brother 1 Alive x4 Brother 2 Brother 3 Brother 4 Father (Age 71) [place] Mother (Age 64) Brain Tumo r Social History Tobacco Use Types Packs/Day Years Used Date Smoking Tobacco: Never Smokeless Tobacco: Never Tobacco Cessation:Counseling Given: No Alcohol Use Standard Drinks/Week Comments Yes 6 (1 standard drink = 0.6 oz pur e alcohol) 6 pack a week Sex and Gender Information Value Date Recorded Sex Assigned at Not on file 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 Gender Identity Not on file Sexual Orientation Not on file 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 Not on file Not on file Last Filed Vital Signs Vital Sign Reading Time Taken Comments Blood Pressure 170/107 04/28/2018 12:19 PM CDT Pulse 73 04/28/2018 12:19 PM CDT Temperature 36.8 C (98.2 F) 02/05/2016 9:52 AM CDT Respiratory Rate 19 02/05/2016 12:00 PM CDT Oxygen Saturation 94% 02/05/2016 1:45 PM CDT Inhaled Oxygen Concentration - - Weight 108.9 kg (240 lb) 05/10/2019 1:20 PM CDT Height 180.3 cm (5' 11) 05/10/2019 1:20 PM CDT Body Mass Index 33.47 05/10/2019 1:20 PM CDT Plan of Treatment Health Maintenance Due Date Last Done Comments COLOGUARD (AGES 45-75) - COL ON CA SCREENING 1958 COLON MONITORING 1958 COLONOSCOPY - COLON CA SCREENING 1958 CT COLONOGRAPHY - COLON CA SCREENING 1960 Colorectal Cancer Screening 1958 FIT - COLON CA SCREENING 1958 FLEX SIG - COLON CA SCREENING 1958 HEPATITIS C SCREENING 09/18/1976 DTAP/TDAP/TD VACCINES (1 - Tdap) 1977 PNEUMOCOCCAL VACCINE 50+ (1 of 1 - PCV) 2008 ZOSTER VACCINE (1 of 2) 2008 SCREENING FOR DIABETES 05/10/2019 02/05/2016 DEPRESSION SCREENING 09/21/2024 COVID-19 VACCINE (1 - 2024-2 6 season) 2025 INFLUENZA VACCINE (#1) 2025 6, 07/16/2015 Respiratory Syncytial Virus (RSV) Vaccine Pt: or over 60 yrs (1 - 1-dose 75+ series) 2033 HEPATITIS B VACCINE Aged Out No longe r eligible based on patient's age to complete this topic HIB VACCINE Aged Out No longer eligi ble based on patient's age to complete this topic HPV VACCINE Aged Out No longer eligi ble based on patient's age to complete this topic MENINGOCOCCAL (Group B) VACCINE SHARED DECISION-MAKING Aged Out No longer eligible based on patient's age to complete this topic MENINGOCOCCAL GROUPS A/C/Y/W VACCINE Aged Out No longer eligible b ased on patient's age to complete this topic Procedures Procedure Name Priority Date/Time Associated Diagnosis Comments BASIC METABOLIC PANEL (CALCIUM TOTAL) OMAR 02/05/2016 9:50 AM CDT Cerebrovascular dural arteriovenous fistula from Last 3 Months or Most Recently Relevant to Health Maintenance Results * (ABNORMAL) BASIC METABOLIC PANEL (CALCIUM TOTAL) (02/05/2016 9:50 AM CDT) [facility] Glucose 97 74 - 106 mg/dL 02/05/2016 10:10 AM CDT [facility] Sodium 143 136 - 145 mmol/L 02/05/2016 10:10 AM CDT [facility] Potassium 4.0 3.5 - 5.1 mmol/L 02/05/2016 10:10 AM CDT [facility] Chloride 108(H) 98 - 107 mmol/L 02/05/2016 10:10 AM CDT [facility] CO2 27 22 - 31 mmol/L 02/05/2016 10:10 AM CDT [facility] Calcium 8.2(L) 8.5 - 10.1 mg/dL 02/05/2016 10:10 AM CDT [facility] Anion Gap 8 5 - 20 mmol/L 02/05/2016 10:10 AM CDT [facility] BUN 20 7 - 21 mg/dL 02/05/2016 10:10 AM [facility] Creatinine 1.18 0.50 - 1.30 mg/dL 02/05/2016 10:10 AM [facility] eGFR by MDRD >60 >60 mL/min/1.7 3m2 02/05/2016 10:10 AM [facility] eGFR by MDRD >60 >60 mL/min/1.7 3m2 02/05/2016 10:10 AM [facility] Blood BLOOD SPECIMEN / Unknown Venipuncture / Unknown 02/05/2016 9:50 AM CDT 02/05/2016 9:56 AM CDT Cas Reis MD LAB - CHEMISTRY ORDERABLES Final Result [facility] [address] [place] [id number] from Last 3 Months or Most Recently Relevant to Health Maintenance Insurance [address] [address] [place]/[employer] [facility]
--- OUTSIDE RECORDS SUMMARY | 2025-09-16 12:08 | XMS_ITS | Encounter Summary ---
Author Organization [facility] Address [address] [place] [address] Phone Care Team Providers Care Senior Front End Engineer Name Role Phone Teri Quevedo MD Primary Care Provider + [phone] Charlie Berry MD Unavailable Sharmila Yanes MD Primary Care Provider + [phone] Edelmira Ontiveros APRN, [facility] Primary Care P rovider Lisa John MD Primary Care Provider Unava ilable Edelmira Ontiveros APRN, 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 No / Unsure 05/20/2021 8:54 AM CDT documented as of this encounter Miscellaneous Notes * Telephone Encounter - Julee Rivera RN - 05/24/2021 10:01 AM CDT Medication failed the protocol, provider to review and approve the medication order if appropriate. Requested Prescriptions Pending Prescriptions Disp Refills escitalopram (LEXAPRO) 10 MG Tablet [Pharmacy Med Name: ESCITALOPRAM 10MG TABLETS] 90 Tablet 0 Sig: Take 1 Tablet by mouth daily. SSRI (6 Month Refill Only) Protocol Failed - 05/24/2021 10:01 AM Failed - Has an encounter in the past 6 months with a depression, anxiety, adjustment disorder, OCD, or PTSD visit diagnosis Passed - Visit with relevant provider in past 6 months or upcoming 90 days Recent Visits Date Type Provider Dept 05/20/21 Office Visit Edelmira Ontiveros APN, [employer]IME M[employer] [facility] 03/28/21 Office Visit Teri Quevedo MD [facility] Showing recent visits within past 182 days and meeting all other requirements Future Appointments No visits were found meeting these conditions. Showing future appointments within next 90 days and meeting all other requirements Passed - Patient has established therapy with SSRI for at least 6 months metoprolol Succinate (TOPROL-XL) 25 MG TABLET SR 24 HR [Pharmacy Med Name: METOPROLOL ER SUCCINATE 25MG TABS] 90 Tablet 1 Sig: Take 1 Tablet by mouth every evening. Beta-Blockers Protocol Passed - 05/24/2021 10:01 AM Passed - BP on record in the past year Clinician-entered: BP Readings from Last 3 Encounters: 05/20/21 138/90 03/28/21 130/82 09/27/20 120/84 Patient-entered: No data recorded Passed - Visit with relevant provider in past 12 months or upcoming 90 days Recent Visits Date Type Provider Dept 05/20/21 Office Visit Edelmira Ontiveros APN, LIME MIXER [facility] [address] 03/28/21 Office Visit Teri Quevedo MD [facility] [address] [facility] 09/27/20 Telemedicine Teri Quevedo MD [facility] [address] 08/24/20 Telemedicine Teri Quevedo MD [facility] [address] [facility] Showing recent visits within past 365 days and meeting all other requirements Future Appointments No visits were found meeting these conditions. Showing future appointments within next 90 days and meeting all other requirements documented in this encounter Plan of Treatment Not on file documented as of this encounter Visit Diagnoses Diagnosis Anxiety Anxiety state, unspecified Essential hypertension Unspecified essential hypertension documented in this encounter Additional Health Concerns Infection Onset Date Last Indicated Resolved Time COVID - 19 Confirmed 03/27/2022 03/27/2022 022 12:16 AM CDT COVID - 19 08/11/2022 08/11/2022 08/21/2022 12:1 6 AM SOCIAL MEDIA DIRECTOR COVID - 19 01/22/2023 01/22/2023 02/01/2023 12:1 6 AM CDT COVID - 19 04/05/2024 04/05/2024 04/05/2024 11:0 6 AM CDT COVID - 19 Confirmed 04/05/2024 04/05/2024 024 12:19 AM CDT Assessment Noted Time PHQ-9 Depression Total Score: 1 11/10/19 19 2:00 PM SOCIAL MEDIA DIRECTOR documented as of this encounter Care Teams Senior Front End Engineer Relationship Specialty Start Date End Date Teri Quevedo MD PCP - General Family Medicine 10/15/15 10/23/22 Sharmila Yanes MD [address] [place] [address] PCP - General Family Medicine 10/24/22 10/25/23 Edelmira Ontiveros APRN, [employer] [address] [place] [address] PCP - General Advanced Practice Nurse 10/26/23 Lisa John MD PCP - General Urology 04/05/25 04/09/25 Edelmira Ontiveros APRN, [employer] [address] [place] [address] PCP - General Advanced Practice Nurse 04/10/25 Chalrie Berry MD [address] [place], [place] [address] [place] [address] [address] [place] [phone] Neurologist Neurology 05/13/18 documented as of this encounter
--- OUTSIDE RECORDS SUMMARY | 2025-09-16 12:08 | XMS_ITS | Encounter Summary ---
Author Organization [facility] Address [address] [place] [address] Phone Care Team Providers Care Script Editor Name Role Phone Charlie Berry MD Unavailable Edelmira Ontiveros APRN, CNP Primary Care P rovider Lisa John MD Primary Care Provider Unava ilable Edelmira Ontiveros APRN, CNP Primary Care P rovider Reason for Visit * Reason Comments Medication Refill Encounter Details Date Type Department Care Team (Late st Contact Info) Description 11/03/2023 Refill [facility] - Primary Care - [place] [address] [place] [address] Sharmila Yanes MD [address] [place], [place] [id number] Medication Refill Social History Tobacco Use Types [...] on file 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 Gender Identity Not on file Sexual Orientation Not on file 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 Not on file Not on file documented as of this encounter Plan of Treatment Not on file documented as of this encounter Visit Diagnoses Diagnosis Essential (primary) hypertension Unspecified essential hypertension documented in this encounter Additional Health Concerns Infection Onset Date Last Indicated Resolved Time COVID - 19 04/05/2024 04/05/2024 04/05/2024 11:0 6 AM CDT COVID - 19 Confirmed 04/05/2024 04/05/2024 024 12:19 AM CDT Assessment Noted Time PHQ-9 Depression Total Score: 1 11/10/19 19 2:00 PM WIND TURBINE SHEET METAL WORKER documented as of this encounter Care Teams Script Editor Relationship Specialty Start Date End Date Edelmira Ontiveros APRN, TRANSFER AGENT [address] [place] [address] PCP - General Advanced Practice Nurse 10/26/23 Lisa John MD PCP - General Urology 04/05/25 04/09/25 Edelmira Ontiveros APRN, TRANSFER AGENT [address] [place] [address] PCP - General Advanced Practice Nurse 04/10/25 Charlie Berry MD [address] [facility] [address] [phone] Neurologist Neurology 05/13/18 documented as of this encounter
--- OUTSIDE RECORDS SUMMARY | 2025-09-16 12:08 | XMS_ITS | Encounter Summary ---
Author Organization [facility] Address [address] [place] [address] Care Team Providers Care Electronics Lead Name Role Phone Sharmila Yanes MD Primary Care Provider [phone] Martine Joseph MD Primary Care Provider + [phone] Martine Joseph MD Unavailable [phone] Nanda Rizo MD Primary Care Provide r Lisa John MD Unavailable Reason for Visit * Auth/Cert (Routine) Specialty Diagnoses / Procedures Referred By Contchas t Referred To Contact Diagnoses Colon cancer screening History of colonoscopy with polypectomy Rectal itching Colon cancer screening [Z12.11] History of colonoscopy with polypectomy [Z98.890, Z86.010] Rectal itching [L29.0] Procedures PA COLONOSCOPY FLX DX W/COLLJ SPEC WHEN PFRMD COLONOSCOPY Referral ID Status Reason Start Date Expiration Date Visits Re quested Visits Authorized [id number] 1 1 Encounter Details Date Type Department Care Team (Late st Contact Info) Description 10/28/2024 Hospital Encounter [facility] [address] [place] [address] Paulo Pino MD [address] [place] [address] [address] [address] Social History Tobacco Use Types Packs/Day Years Used Date Smoking Tobacco: Never Passive Smoke Exposure: Never Smokeless Tobacco: Never Tobacco Cessation:Ready to Q uit: Not Asked; Counseling Given: Not Answered Alcohol Use Standard Drinks/Week Comments Yes 2 (1 standard drink = 0.6 oz pur e alcohol) PHQ-2 Answer Date Recorded PHQ-2 Total Score (If total score is 3 or more points, staff should administer the PHQ-9) 0 08/30/2025 Social Connection and Isolation Panel Answer Date [...] any clubs o r organizations such as tenriism groups, unions, fraternal or athletic groups, or [...] any time in the past 12 m [facility], were you homeless or living in a snf (including now)? 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 2-3 times a week 05/03/2024 3:00 PM Albertina Roberts R N Q2: How many drinks containing alcohol do you have on a typical day when you are drinking? 5 or 6 05/03/2024 3:00 PM Albertina Roberts R N documented as of this encounter Plan of Treatment Not on file documented as of this encounter Visit Diagnoses Diagnosis Colon cancer screening Special screening for malignant neoplasms, colon History of colonoscopy with polypectomy Other postprocedural status Rectal itching Pruritus ani documented in this encounter Admitting Diagnoses Diagnosis Colon cancer screening Special screening for malignant neoplasms, colon History of colonoscopy with polypectomy Other postprocedural status Rectal itching Pruritus ani documented in this encounter Historical Medications * This list may reflect changes made after this encounter. aspirin 81 mg enteric coated tablet Take 1 tablet (81 mg total) by mouth daily added in this encounter Additional Health Concerns Infection Onset Date Last Indicated Resolved Time COVID: Suspected 08/22/2025 08/22/2025 08/22/2025 12:33 PM CONE OPERATOR documented as of this encounter Care Teams Electronics Lead Relationship Specialty Start Date End Date Sharmila Yanes MD PCP - General Family Medicine 11/06/22 03/21/25 Martine Joseph MD [address] [place] [address] [address] [place] [address] PCP - General Cardiology 03/22/25 04/30/25 Nanda Rizo MD [address] [place] [address] [address] [place] [address] PCP - General Family Medicine 05/01/25 Martine Joseph MD [address] [place] [address] [address] [place] [address] Consulting Physician Cardiology 05/01/25 Lisa John MD [address] [facility] [address] [place] [address] Referring Physician Urology 05/01/25 documented as of this encounter
--- OUTSIDE RECORDS SUMMARY | 2025-09-16 12:08 | XMS_ITS | Encounter Summary ---
Author Organization [facility] Address [address] [place] [address] Phone Care Team Providers Care Sports Cartoonist Name Role Phone Charlie Berry MD Unavailable Edelmira Ontiveros APRN, MOTOR VEHICLES INSPECTOR Primary Care P rovider Reason for Visit * Reason Comments Medication Refill Encounter Details Date Type Department Care Team (Late st Contact Info) Description 07/22/2025 Refill [facility] - Family Medicine [facility] [place] [phone] Edelmira Ontiveros APRN, MOTOR VEHICLES INSPECTOR [address] [place] [address] Medication Refill Social History Tobacco Use Types Packs/Day Years Used Date Smoking Tobacco: Never Smokeless Tobacco: Never Alcohol Use Standard Drinks/Week Comments Yes 0 (1 standard drink = 0.6 oz pur e alcohol) occasionally [facility] Utilities Answer Date Recorded In the past 12 months has e electric, gas, oil, or water company [...] declined 01/10/2025 How often do you attend mormonism or gnosticism serv ices? Patient declined 01/10/2025 Do you belong to any clubs o r organizations such as mormonism groups, unions, fraternal or athletic groups, or [...] Score - Questions 1-9 0 06/0 10/2024 [facility] - Occupational Stress Questionnaire Answer Date Recorded [...] or rent on time? Patient declined 01/11/20 In the past 12 months, how m any times have you moved where you were living? 0 01/10/2025 At any time in the past 12 m [facility], were you homeless or living in a [facility] (including now)? Patient declined 01/10/2025 Education Answer Date Recorded What is the highest level of school you have completed or the highest degree you have received? 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 Not on file Not on file documented as of this encounter Plan of Treatment Not on file documented as of this encounter Visit Diagnoses Not on filedocumented in this encounter Additional Health Concerns Assessment Noted Time PHQ-9 Depression Total Score: 0 02/21/20 3:27 PM CDT documented as of this encounter Care Teams Sports Cartoonist Relationship Specialty Start Date End Date Edelmira Ontiveros APRN, MOTOR VEHICLES INSPECTOR [address] [place] [address] PCP - General Advanced Practice Nurse 04/10/25 Charlie Berry MD [address] [facility] [address] [phone] Neurologist Neurology 05/13/18 documented as of this encounter
--- OUTSIDE RECORDS SUMMARY | 2025-09-16 12:08 | XMS_ITS | Encounter Summary ---
Author Organization [facility] Address [address] [place] [address] Phone Care Team Providers Care Mail Truck Driver Name Role Phone Charlie Berry MD Unavailable Edelmira Ontiveros APRN, [facility] Primary Care P rovider Lisa John MD Primary Care Provider Unava ilable Edelmira Ontiveros APRN, [facility] Primary Care P rovider Reason for Visit * Reason Comments Medication Refill Encounter Details Date Type Department Care Team (Late st Contact Info) Description 12/28/2023 Refill [facility] - [facility] [place] [address] Sharmila Yanes MD [address] [place] [address] Medication Refill Social History Tobacco Use Types [...] on file 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 Requested Prescriptions Pending Prescriptions Disp Refills atorvastatin (LIPITOR) 20 MG Tablet [Pharmacy Med Name: ATORVASTATIN 20MG TABLETS] 90 Tablet 0 Sig: TAKE 1 TABLET BY MOUTH DAILY Hmg CoA Reductase Inhibitors Protocol Passed - 12/28/2023 2:20 PM Passed - Visit with relevant provider in past 12 months or upcoming 90 days Recent Visits Date Type Provider Dept 12/15/23 Office Visit Lily Mcmahan, [facility] 10/29/23 Office Visit Lily Mcmahan, [facility] 10/26/23 Office Visit Edelmira Ontiveros APRN, CRIST[facility] 06/01/23 Office Visit Kaushal Vanegas PAC [facility] 04/24/23 Office Visit Sharmila Yanes MD [facility] 01/29/23 Office Visit Sharmila Yanes MD [facility] 01/22/23 Office Visit Kaushal Vanegas, [facility] Showing recent visits within past 365 days and meeting all other requirements Future Appointments No visits were found meeting these conditions. Showing future appointments within next 90 days and meeting all other requirements Passed - Lipid panel in past 12 months LDL Date Value Ref Range Status 10/29/2023 63 <130 mg/dL Final HDL CHOLESTEROL Date Value Ref Range Status 10/29/2023 40 (L) >40 mg/dL Final CHOLESTEROL Date Value Ref Range Status 10/29/2023 124 <200 mg/dL Final TRIGLYCERIDES Date Value Ref Range Status 10/29/2023 106 <150 mg/dL Final VLDL Date Value Ref Range Status 10/29/2023 21 10 - 50 mg/dL Final CHOL/HDL RATIO Date Value Ref Range Status 10/29/2023 3.1 0.0 - 4.4 Final NON-HDL CHOLESTEROL Date Value Ref Range Status 10/29/2023 84 <130 mg/dL Final Passed - CMP in past 12 months SODIUM Date Value Ref Range Status 10/29/2023 139 136 - 145 mmol/L Final POTASSIUM Date Value Ref Range Status 10/29/2023 3.6 3.5 - 5.1 mmol/L Final CHLORIDE Date Value Ref Range Status 10/29/2023 101 98 - 107 mmol/L Final CO2, VENOUS Date Value Ref Range Status 10/29/2023 30 22 - 30 mmol/L Final ANION GAP Date Value Ref Range Status 10/29/2023 11.6 <18.0 mmol/L Final GLUCOSE Date Value Ref Range Status 10/29/2023 129 (H) 70 - 99 mg/dL Final BUN Date Value Ref Range Status 10/29/2023 15 8 - 26 mg/dL Final CREATININE, BLOOD Date Value Ref Range Status 10/29/2023 1.19 0.70 - 1.30 mg/dL Final BUN/CREATININE RATIO Date Value Ref Range Status 10/29/2023 13 12 - 20 ratio Final TOTAL PROTEIN Date Value Ref Range Status 10/29/2023 7.0 6.3 - 8.2 g/dL Final ALBUMIN Date Value Ref Range Status 10/29/2023 3.9 3.5 - 5.0 g/dL Final A/G RATIO Date Value Ref Range Status 10/29/2023 1.3 1.0 - 2.2 Final CALCIUM Date Value Ref Range Status 10/29/2023 8.7 8.7 - 10.5 mg/dL Final T BILI Date Value Ref Range Status 10/29/2023 0.7 0.2 - 1.2 mg/dL Final SGOT (AST) Date Value Ref Range Status 10/29/2023 21 5 - 34 U/L Final SGPT (ALT) Date Value Ref Range Status 10/29/2023 32 0 - 55 U/L Final ALKALINE PHOSPHATASE Date Value Ref Range Status 10/29/2023 72 40 - 150 U/L Final GFR, EST. NONAFRICAN Date Value Ref Range Status 10/29/2023 >60 >=60 Final GFR, EST. Date Value Ref Range Status 10/29/2023 >60 >=60 Final GFR, ESTIMATED Date Value Ref Range Status 10/29/2023 >60 >=60 Final Comment: Creatinine Clearance is the preferred criteria for selecting drug dose adjustments in renally impaired patients. The GFR is provided as additional pertinent clinical information. GFR is reported in mL/min/1.73 sq m. Calculation based on the Chronic Kidney Disease Epidemiology Collaboration (CKD- EPI) equation refitwithout adjustment for race. IS THE PATIENT REQUIRED TO BE FASTING? Date Value Ref Range Status 10/29/2023 No Final documented in this encounter Plan of Treatment Not on file documented as of this encounter Visit Diagnoses Not on filedocumented in this encounter Additional Health Concerns Infection Onset Date Last Indicated Resolved Time COVID - 19 04/05/2024 04/05/2024 04/05/2024 11:0 6 AM CDT COVID - 19 Confirmed 04/05/2024 04/05/2024 08 024 12:19 AM CDT Assessment Noted Time PHQ-9 Depression Total Score: 1 11/10/19 19 2:00 PM MANAGER LOSS PREVENTION documented as of this encounter Care Teams Mail Truck Driver Relationship Specialty Start Date End Date Edelmira Ontiveros APRN, RESIDENTIAL REAL ESTATE SALES MANAGER [address] [place] [address] PCP - General Advanced Practice Nurse 10/26/23 Lisa John MD PCP - General Urology 04/05/25 04/09/25 Edelmira Ontiveros APRN, RESIDENTIAL REAL ESTATE SALES MANAGER [address] [place] [address] PCP - General Advanced Practice Nurse 04/10/25 Charlie Berry MD [address] [facility] [address] [place] [address] Neurologist Neurology 05/13/18 documented as of this encounter
--- OUTSIDE RECORDS SUMMARY | 2025-09-16 12:08 | XMS_ITS | Encounter Summary ---
Author Organization [facility] Address [address] [place] [address] Phone Care Team Providers Care Juvenile Justice Specialist Name Role Phone Teri Quevedo MD Primary Care Provider + [phone] Charlie Berry MD Unavailable Sharmila Yanes MD Primary Care Provider + [phone] Edelmira Ontiveros APRN, [facility] Primary Care P rovider Lisa John MD Primary Care Provider Unava ilable Edelmira Ontiveros APRN, [facility] Primary Care P rovider Reason for Visit * Reason Comments Medication Refill Encounter Details Date Type Department Care Team (Late st Contact Info) Description 06/08/2021 Refill [facility] - Primary Care - [place] [address] [place] [address] Teri Quevedo MD [address] [place] [address] Medication Refill Social History Tobacco Use [...] on file 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 Gender Identity Not on file Sexual Orientation Not on file 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 Not on file Not on file Not [...] 19 08/11/2022 08/11/2022 08/21/2022 12:1 6 AM ZINC PLATE CUTTER COVID - 19 01/22/2023 01/22/2023 02/01/2023 12:1 6 AM CDT COVID - 19 04/05/2024 04/05/2024 04/05/2024 11:0 6 AM CDT COVID - 19 Confirmed 04/05/2024 04/05/2024 024 12:19 AM CDT Assessment Noted Time PHQ-9 Depression Total Score: 1 11/10/19 19 2:00 PM ZINC PLATE CUTTER documented as of this encounter Care Teams Juvenile Justice Specialist Relationship Specialty Start Date End Date Teri Quevedo MD PCP - General Family Medicine 10/15/15 10/23/22 Sharmila Yanes MD [address] [place] [address] PCP - General Family Medicine 10/24/22 10/25/23 Edelmira Ontiveros APRN, HR GENERALIST [address] [address] PCP - General Advanced Practice Nurse 10/26/23 Lisa John MD PCP - General Urology 04/05/25 04/09/25 Edelmira Ontiveros APRN, HR GENERALIST [address] [address] PCP - General Advanced Practice Nurse 04/10/25 Charlie Berry MD [address] [place] [address] [place] [phone] Neurologist Neurology 05/13/18 documented as of this encounter
--- OUTSIDE RECORDS SUMMARY | 2025-09-16 12:08 | XMS_ITS | Encounter Summary ---
Author Organization [facility] Address [address] [place] [address] Phone Care Team Providers Care Hospice Music Therapist Name Role Phone Teri Quevedo MD Primary Care Provider + [phone] Charlie Berry MD Unavailable Sharmila Yanes MD Primary Care Provider + [phone] Edelmira Ontiveros APRN, [facility] Primary Care P rovider Lisa John MD Primary Care Provider Unava ilable Eedlmira Ontiveros APRN, [facility] Primary Care P rovider Reason for Visit * Reason Comments Medication Refill Encounter Details Date Type Department Care Team (Late st Contact Info) Description 07/28/2021 Refill [facility] - Family Medicine [facility] [address] [place] [address] Teri Quevedo MD [address] [place] [address] Medication Refill Social History Tobacco [...] on file 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 No / Unsure 07/01/2021 10:39 AM CDT documented as of this encounter Plan of Treatment Not on file documented as of this encounter Visit Diagnoses Not on filedocumented in this encounter Additional Health Concerns Infection Onset Date Last Indicated Resolved Time COVID - 19 Confirmed 03/27/2022 03/27/2022 022 12:16 AM CDT COVID - 19 08/11/2022 08/11/2022 08/21/2022 12:1 6 AM INSTRUCTIONAL SPECIALIST COVID - 19 01/22/2023 01/22/2023 02/01/2023 12:1 6 AM CDT COVID - 19 04/05/2024 04/05/2024 04/05/2024 11:0 6 AM CDT COVID - 19 Confirmed 04/05/2024 04/05/2024 024 12:19 AM CDT Assessment Noted Time PHQ-9 Depression Total Score: 1 11/10/19 19 2:00 PM INSTRUCTIONAL SPECIALIST documented as of this encounter Care Teams Hospice Music Therapist Relationship Specialty Start Date End Date Teri Quevedo MD PCP - General Family Medicine 10/15/15 10/23/22 Sharmila Yanes MD [address] [place] [address] PCP - General Family Medicine 10/24/22 10/25/23 Edelmira Ontiveros APRN, UNIT DIRECTOR [address] [address] PCP - General Advanced Practice Nurse 10/26/23 Lisa John MD PCP - General Urology 04/05/25 04/09/25 Edelmira Ontiveros APRN, UNIT DIRECTOR [address] [address] PCP - General Advanced Practice Nurse 04/10/25 Charlie Berry MD [address] [facility] [place] [address] [place] [phone] Neurologist Neurology 05/13/18 documented as of this encounter
--- OUTSIDE RECORDS SUMMARY | 2025-09-16 12:08 | XMS_ITS | Encounter Summary ---
Author Organization [facility] Address [address] [place] [address] Phone Care Team Providers Care Assembler Filters Name Role Phone Teri Quevedo MD Primary Care Provider + [phone] Charlie Berry MD Unavailable Sharmila Yanes MD Primary Care Provider + [phone] Edelmira Ontiveros APRN, SPORTS MANAGEMENT INTERN Primary Care P rovider Lisa John MD Primary Care Provider Unava ilable Edelmira Ontiveros APRN, [facility] Primary Care P rovider Reason for Visit * Reason Comments Medication Refill Encounter Details Date Type Department Care Team (Late st Contact Info) Description 06/07/2022 Refill [facility] - Primary Care - [place] [address] [place] [address] Teri Quevedo MD [address] [place] [address] Medication Refill Social History Tobacco Use [...] on file Legal Sex Male 9:40 AM CAN CRIMPER Gender Identity Not on file Sexual Orientation Not on file 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 Requested Prescriptions Pending Prescriptions Disp Refills escitalopram (LEXAPRO) 10 MG Tablet [Pharmacy Med Name: ESCITALOPRAM 10MG TABLETS] 90 Tablet 0 Sig: TAKE 1 TABLET BY MOUTH DAILY SSRI (6 Month Refill Only) Protocol Failed - 06/07/2022 2:26 PM Failed - Has an encounter in the past 6 months with a depression, anxiety, adjustment disorder, OCD, or PTSD visit diagnosis Passed - Visit with relevant provider in past 6 months or upcoming 90 days Recent Visits Date Type Provider Dept 04/18/22 Office Visit Teri Quevedo MD [facility] Showing recent visits within past 182 days [...] Last Indicated Resolved Time COVID - 19 08/11/2022 08/11/2022 08/21/2022 12:1 6 AM CAN CRIMPER COVID - 19 01/22/2023 01/22/2023 02/01/2023 12:1 6 AM CDT COVID - 19 04/05/2024 04/05/2024 04/05/2024 11:0 6 AM CDT COVID - 19 Confirmed 04/05/2024 04/05/2024 024 12:19 AM CDT Assessment Noted Time PHQ-9 Depression Total Score: 1 11/10/19 19 2:00 PM CAN CRIMPER documented as of this encounter Care Teams Assembler Filters Relationship Specialty Start Date End Date Teri Quevedo MD PCP - General Family Medicine 10/15/15 10/23/22 Sharmila Yanes MD [address] [place] [address] PCP - General Family Medicine 10/24/22 10/25/23 Edelmira Ontiveros APRN, SPORTS MANAGEMENT INTERN [address] [place] [address] PCP - General Advanced Practice Nurse 10/26/23 Lisa John MD PCP - General Urology 04/05/25 04/09/25 Edelmira Ontiveros APRN, SPORTS MANAGEMENT INTERN [address] [place] [address] PCP - General Advanced Practice Nurse 04/10/25 Charlie Berry MD [address] [place] [address] [place] [phone] Neurologist Neurology 05/13/18 documented as of this encounter
--- OUTSIDE RECORDS SUMMARY | 2025-09-16 12:09 | XMS_ITS | Encounter Summary ---
Author Organization [facility] Address [address] [place] [address] Phone Care Team Providers Care Quality Improvement Coordinator (Rn) Name Role Phone Teri Quevedo MD Primary Care Provider + [phone] Charlie Berry MD Unavailable Sharmila Yanes MD Primary Care Provider + [phone] Edelmira Ontiveros APRN, [facility] Primary Care P rovider Lisa John MD Primary Care Provider Unava ilable Edelmira Ontiveros APRN, [facility] Primary Care P rovider Reason for Visit * Reason Comments Medication Refill Encounter Details Date Type Department Care Team (Late st Contact Info) Description 10/18/2021 Refill [facility] - Family Medicine [facility] [address] [place] [address] Teri Quevedo MD [address] [place] [address] Medication Refill Social History Tobacco [...] on file 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 No / Unsure 10/14/2021 1:33 PM STEM ROLLER documented as of this encounter Miscellaneous Notes * Telephone Encounter - Tracey Amaro RN - 10/18/2021 9:15 AM STEM ROLLER Medication approved and signed per standing order protocol. ROLLER documented in this encounter Plan of Treatment Not on file documented as of this encounter Visit Diagnoses Diagnosis Essential (primary) hypertension Unspecified essential hypertension documented in this encounter Additional Health Concerns Infection Onset Date Last Indicated Resolved Time COVID - 19 Confirmed 03/27/2022 03/27/2022 022 12:16 AM CDT COVID - 19 08/11/2022 08/11/2022 08/21/2022 12:1 6 AM STEM ROLLER COVID - 19 01/22/2023 01/22/2023 02/01/2023 12:1 6 AM CDT COVID - 19 04/05/2024 04/05/2024 04/05/2024 11:0 6 AM CDT COVID - 19 Confirmed 04/05/2024 04/05/2024 024 12:19 AM CDT Assessment Noted Time PHQ-9 Depression Total Score: 1 11/10/19 19 2:00 PM STEM ROLLER documented as of this encounter Care Teams Quality Improvement Coordinator (Rn) Relationship Specialty Start Date End Date Teri Quevedo MD PCP - General Family Medicine 10/15/15 10/23/22 Sharmila Yanes MD [address] [place] [address] PCP - General Family Medicine 10/24/22 10/25/23 Edelmira Ontiveros APRN, MILL TENDER WASHING [address] [place] [address] PCP - General Advanced Practice Nurse 10/26/23 Lisa John MD PCP - General Urology 04/05/25 04/09/25 Edelmira Ontiveros APRN, MILL TENDER WASHING [address] [place] [address] PCP - General Advanced Practice Nurse 04/10/25 Charlie Berry MD [address] [place], [place] [address] [address] [place] [phone] Neurologist Neurology 05/13/18 documented as of this encounter
--- OUTSIDE RECORDS SUMMARY | 2025-09-16 12:09 | XMS_ITS | Clinical Summary ---
Author Organization [facility] B Address [address] [place] [address] Care Team Providers Care Marketing Production Manager Name Role Phone Martine Joseph MD Unavailable [phone] Nanda Rizo MD Primary Care Provide r Lisa John MD Unavailable [phone] Allergies No known active allergies Medications atorvastatin (LIPITOR) 20 mg tablet TK 1 T PO D 05/29/20 20 Active escitalopram (LEXAPRO) 10 mg tablet TK 1 T PO D 04/20/20 20 Active losartan (COZAAR) 100 mg tablet TK 1 T PO D 04/24/20 20 Active tamsulosin (FLOMAX) 0.4 mg extended release capsule TK 1 C PO QD 05/15/20 20 Active famotidine (PEPCID) 40 mg tablet Take 1 tablet (40 mg total) by mouth nightly 06/07/20 20 Active hydroCHLOROthi azide (HYDRODIURIL) 25 mg tablet Take 1 tablet (25 mg total) by mouth daily 07/25/20 23 Active aspirin 81 mg enteric coated tablet Take 1 tablet (81 mg total) by mouth daily Active blood-glucose meter kit Use to check BGs daily for type 2 diabetes 1 kit 07/31/20 Active blood glucose diagnostic (glucose blood) strip Check BGs daily for type 2 diabetes 100 each 11 07/31/20 25 Active lancets misc Use to check BGs daily for type 2 diabetes 100 each 11 07/31/20 25 Active benzonatate (TESSALON) 100 mg capsuleIndicat ions:Cough Take 1 capsule (100 mg total) by mouth 3 (three) times a day as needed for cough 30 capsule 08/22/20 25 Active metoprolol XL (TOPROL-XL) 50 mg extended release tablet TAKE 1 TABLET BY MOUTH DAILY 90 tablet 1 08/22/20 25 Active omeprazole (PriLOSEC) 40 mg capsule TAKE 1 CAPSULE(40 MG) BY MOUTH DAILY 90 capsule 09/05/20 25 Active metFORMIN XR (GLUCOPHAGE XR) 500 mg 24 hr tablet TAKE 1 TABLET(500 MG) BY MOUTH DAILY WITH BREAKFAST 90 tablet 09/15/20 25 Active metoprolol XL (TOPROL-XL) 25 mg extended release tablet 2 tablets (50 mg total) daily 05/10/20 20 025 Discontinued(Al ternate therapy) omeprazole (PriLOSEC) 40 mg capsule Take 1 capsule (40 mg total) by mouth daily 90 capsule 06/01/20 25 025 Discontinued metFORMIN XR (GLUCOPHAGE XR) 500 mg 24 hr tablet TAKE 1 TABLET(500 MG) BY MOUTH DAILY WITH BREAKFAST 30 tablet 08/08/20 25 025 Discontinued(Re order) metFORMIN XR (GLUCOPHAGE XR) 500 mg 24 hr tablet Take 1 tablet (500 mg total) by mouth daily with breakfast 30 tablet 09/15/20 25 025 Discontinued Active Problems Problem Noted Date Diagnosed Date Gram negative sepsis 07/19/2025 SIRS (systemic inflammatory response syndrome) 1 Complicated UTI (urinary tract infection) 2024 Class 2 severe obesity due t o excess calories with serious comorbidity and body mass index (BMI) of 35.0 to 35.9 in adult 05/01/2025 Assessment & Plan (08/31/2025 9:41 AM NUMEROLOGIST): Assessment & Plan (07/31/2025 5:36 PM NUMEROLOGIST): Assessment & Plan (06/01/2025 10:11 AM CDT): Chronic, stable, not at goal BMI less than 30. Wt Readings from Last 3 Encounters: 06/01/25 116.6 kg (257 lb) 05/01/25 116.8 kg (257 lb 9.6 oz) 04/22/25 116.4 kg (256 lb 9.6 oz) Body mass index is 36.88 kg/m . BMI plan includes nutrition and exercise changes Colon cancer screening 08/11/2023 History of colonoscopy with polypectomy 08/11/20 Rectal itching 08/11/2023 History of anal fissures 08/11/2023 Chest discomfort 10/06/2022 Essential hypertension 10/06/2022 Assessment & Plan (07/31/2025 5:36 PM NUMEROLOGIST): Bp in the office today BP Readings from Last 3 Encounters: 07/31/25 126/74 07/20/25 140/89 07/17/25 128/83 Continue current regimen Recommend DASH diet, heart-healthy lifestyle, exercise. Discussed the risks of hypertension. Assessment & Plan (04/27/2025 12:22 PM CDT): Bp in the office today BP Readings from Last 3 Encounters: 04/22/25 130/82 03/22/25 145/92 01/11/24 147/95 Continue current regimen Recommend DASH diet, heart-healthy lifestyle, exercise. Discussed the risks of hypertension. Mixed hyperlipidemia 10/06/2022 Assessment & Plan (07/31/2025 5:36 PM NUMEROLOGIST): Assessment & Plan (04/27/2025 12:22 PM CDT): STEFANIE (obstructive sleep apnea) 10/06/2022 Assessment & Plan (04/27/2025 12:22 PM CDT): Laryngeal spasm 09/29/2022 Assessment & Plan (09/29/2022 11:47 AM NUMEROLOGIST): Omeprazole 40 mg in the morning 30-60 minutes before first meal of the day Continue Pepcid famotidine 40 mg at bedtime Referral to GI for colonoscopy and EGD Sensorineural hearing loss ( SNHL) of left ear with restricted hearing of right ear 09/29/2022 Assessment & Plan (09/29/2022 11:47 AM NUMEROLOGIST): Agree with Hearing aids Prostate cancer 03/28/2021 Overview (08/11/2023): prostate bx 03/2014; neg- psa 9.2 in february 2014 psa 12/2014-5.0 09/2014-7.41 02/2014-9.2 prostate bx neg 03/2014 having some recurrent slow stream; alw ays voids sitting; habit not sure if stream w eaker w ill pay attention restarted flomax 1 w k ago ed- tried viagra 50mg; partially effective w ould like 1x/w sokaogon multiple stress tests neg per patient. Urology Follow Up: doing w ell on flomax using viagra 100mg prn attended seminar in past. ROS: CONSTITUTIONAL: Chills Assessment & Plan (04/27/2025 12:22 PM CDT): Biceps tendinitis of left upper extremity 2019 Arthritis of left acromioclavicular joint 2019 Tear of left rotator cuff 06/14/2020 Type 2 diabetes mellitus wit h hyperglycemia, without long-term current use of insulin 12/29/2016 Assessment & Plan (07/31/2025 5:36 PM NUMEROLOGIST): The patient was counseled on a heart-healthy, diabetic-friendly diet, as well as life-style modification. Education provided on the diagnosis and risks of the disease. We will continue to monitor routine labs. Additionally, He was counseled on routine diabetic eye exams, foot exams, and other preventive care. Most recent A1c on file: Lab Results Component Value Date HGBA1C 6.7 (H) 07/19/2025 Continue regimen of metformin Orders: Hemoglobin A1c; Future Assessment & Plan (06/01/2025 10:11 AM CDT): New problem. Not at goal A1c <7.0% Hgb A1C Date Value Ref Range Status 05/10/2025 8.2 (H) 4.0 - 5.6 % Final Labs reviewed indicating suboptimal glycemic control Recommend continuing Metformin XR 500mg daily with breakfast CODY/ARB therapy: losartan 100mg daily Statin therapy: lipitor 20mg daily Assessment & Plan (04/27/2025 12:22 PM CDT): Anxiety disorder 11/12/2015 Assessment & Plan (07/31/2025 5:36 PM NUMEROLOGIST): Assessment & Plan (04/27/2025 12:22 PM CDT): Osteoarthritis of knee 11/12/2015 Encounters Date Type Department Care Team Description 08/30/2025 4:30 PM NUMEROLOGIST Office Visit [facility] Primary Care at [address] [phone] Nanda Rizo MD Memory change (Primary Dx); Class 2 severe obesity due to excess calories with serious comorbidity and body mass index (BMI) of 35.0 to 35.9 in adult 08/30/2025 Telephone [facility] Primary Care at [address] [phone] Nanda Rizo MD 08/23/2025 Results Follow-Up [facility] Care at [address] [phone] Jacinta Sarah NP Throat culture Throat 08/22/2025 12:46 PM NUMEROLOGIST - 08/22/2025 11:59 PM NUMEROLOGIST Hospital Encounter [address] [address] Acute viral syndrome Discharge Disposition: Discharge to home or self care 08/22/2025 12:30 PM NUMEROLOGIST Office Visit [facility] Care at [address] [phone] Arlen Dong NP Acute viral syndrome (Primary Dx) 07/31/2025 4:45 PM NUMEROLOGIST Office Visit [facility] Primary Care at [address] [phone] Nanda Rizo MD Essential hypertension (Primary Dx); Mixed hyperlipidemia; Type 2 diabetes mellitus with hyperglycemia, without long-term current use of insulin (HCC); Anxiety disorder, unspecified type; Class 2 severe obesity due to excess calories with serious comorbidity and body mass index (BMI) of 35.0 to 35.9 in adult; Memory changes; Nocturia 07/25/2025 [facility] Post Discharge Follow up phone call [address] [address] Cheyenne Anderson RN 07/17/2025 8:12 PM CDT - 07/20/2025 12:38 PM CDT Hospital Encounter [address] [address] Ady Hurley MD Davis, Isabelle Rivera II, MD Complicated UTI (urinary tract infection) (Primary Dx); Gram negative sepsis (HCC) Discharge Disposition: Discharge to home or self care 07/17/2025 6:00 PM CDT Office Visit [facility] at [address] [phone] Jacinta Sarah NP Post-procedural fever (Primary Dx); Tachycardia; Nausea and vomiting, unspecified vomiting type from Last 3 Months Immunizations Immunization Administration Dates Next Due COVID-19 mRNA ([employer]) 0.3 m L (30 mcg) vaccine (12 years and up) 10/26/2023 Influenza, Quadrivalent, Spl it, Preservative Free, Intramuscular 07/01/2016 Influenza, Trivalent, IM (MDV) 07/19/2015,2014,08/07/2014 Influenza, Trivalent, Preser vative Free, Intramuscular 09/25/2023,2022,06/21/2021 Influenza, Unspecified 06/24/2025,07/19/2015, Moderna SARS-CoV-2 Monovalen t Vaccination (12+ YRS) 09/04/2021,01/29/2021,01/01/2021 Pneumococcal Conjugate Pcv20 10/24/2022 Tdap 05/17/2021,07/08/2015,08/06/2010 ZOSTER Recombinant 04/25/2023,12/16/2021 Surgical History Surgery Date Site/Laterality Comments CYST REMOVAL cuauhtemoc-anal 25 yrs ago COLONOSCOPY 11 yrs ago in [place] Medical History Medical History Date Comments Hypertension Anxiety Gastric reflux Vertigo Colon polyp Hyperlipidemia Sleep apnea Arthritis Cancer (HCC) Diabetes mellitus Family History Medical History Relation Name Comments Parkinsonism Brother Ulcerative colitis Brother Heart disease Other Hypertension Other Relation Name Status Comments Brother Other Social History Tobacco Use Types Packs/Day Years Used Date Smoking Tobacco: Never Passive Smoke Exposure: Never Smokeless Tobacco: Never Tobacco Cessation:Counseling Given: Not Answered Alcohol Use Standard Drinks/Week [...] often do you attend chur ch or methodist services? More than 4 times per year 07/18/2025 Do you belong to any clubs o r organizations such as congregation groups, unions, fraternal or athletic groups, or [...] any time in the past 12 m [facility] [place], were you homeless or living in a [facility] (including now)? No 07/18/2025 [facility] Utilities Answer Date Recorded In the past [...] on file Legal Sex Male 8:39 PM NUMEROLOGIST Gender Identity Not on file Sexual Orientation Not on file Last Filed Vital Signs Vital Sign Reading Time Taken Comments Blood Pressure 128/74 08/30/2025 4:37 PM NUMEROLOGIST Pulse 81 08/30/2025 4:37 PM NUMEROLOGIST Temperature 36.6 C (97.9 F) 08/30/2025 4:37 PM NUMEROLOGIST Respiratory Rate 18 08/30/2025 4:37 PM NUMEROLOGIST Oxygen Saturation 98% 08/30/2025 4:37 PM NUMEROLOGIST Inhaled Oxygen Concentration - - Weight 113.1 kg (249 lb 6.4 oz) 08/30/2025 4:37 PM NUMEROLOGIST Height 177.8 cm (5' 10) 08/30/2025 4:37 PM NUMEROLOGIST Body Mass Index 35.79 08/30/2025 4:37 PM NUMEROLOGIST Plan of Treatment Health Maintenance Due Date Last Done Comments Hepatitis C Screening 1960 Prostate Cancer Screening-PSA 1958 Dilated Eye Exam 1958 Hepatitis B Screening 1976 Hemoglobin A1C 01/17/2026 07/19/2025, 05/10/2025 Foot Exam 05/01/2026 05/01/2025 Well Visit 65+ 05/01/2026 05/01/2025 Albumin Creatinine Ratio, Urine 05/10/2026 05/10/2025 Lipid Panel 07/19/2026 07/19/2025, 04/22, 02/14/2025, Additional history exists eGFR 07/20/2026 07/20/2025, 06/22, 07/18/2025, Additional history exists Covid-19 Vaccine ( season) 2026 10/26/2023, 09/04/2021, 01/29/2021, Additional history exists Postponed from 05/22/2025 (Patient declined, but will receive in the future) Depression Screening 08/30/2026 08/30/2025, 07/31/2025, 05/01/2025 Fall Risk Assessment 08/30/2026 08/30/2025, 07/31/2025, 07/20/2025, Additional history exists Colon Cancer Screening-DNA Stool 12/07/2027 12/06/2024 DTaP/Tdap/Td Vaccine (4 - Td or Tdap) 05/17/2031 05/17/2021, 07/08/2015, 08/06/2010 Pneumococcal vaccine 65+ Completed 10/24/2022 Zoster Vaccine Completed 04/25/2023, 12/16/2021 Colon Cancer Screening-FIT Discontinued 12/06/2024 Influenza Vaccine Completed 06/24/2025, , 2022, Additional history exists Abdominal Aortic Aneurysm (AAA) Screen Completed 07/17/2025 Procedures Procedure Name Priority Date/Time Associated Diagnosis Comments THROAT CULTURE Routine 08/22/2025 12:46 PM NUMEROLOGIST Acute viral syndrome POCT RAPID STREP Routine 08/22/2025 12:2 6 PM NUMEROLOGIST Acute viral syndrome POC INFLUENZA A/B, COVID-19 ANTIGEN Routine 08/22/2025 12:16 PM NUMEROLOGIST Acute viral syndrome POCT GLUCOSE DEVICE Routine 07/20/2025 1 1:58 AM CDT POCT GLUCOSE DEVICE Routine 07/20/2025 7 :55 AM CDT EGFR Routine 07/20/2025 4:14 AM CDT DIFFERENTIAL AUTO Routine 07/20/2025 4:1 4 AM CDT COMPREHENSIVE METABOLIC PANEL Routine 07/20/2025 4:14 AM CDT CBC WITH AUTO DIFFERENTIAL Routine 07/20/2025 4:14 AM CDT POCT GLUCOSE DEVICE Routine 07/20/2025 3 :43 AM CDT POCT GLUCOSE DEVICE Routine 07/19/2025 9 :28 PM CDT POCT GLUCOSE DEVICE Routine 07/19/2025 5 :19 PM CDT POCT GLUCOSE DEVICE Routine 07/19/2025 1 1:46 AM CDT POCT GLUCOSE DEVICE Routine 07/19/2025 8 :49 AM CDT EGFR Routine 07/19/2025 4:08 AM CDT DIFFERENTIAL AUTO Routine 07/19/2025 4:0 8 AM CDT LIPID PANEL Routine 07/19/2025 4:08 AM CDT HEMOGLOBIN A1C Routine 07/19/2025 4:08 AM CDT COMPREHENSIVE METABOLIC PANEL Routine 07/19/2025 4:08 AM CDT CBC WITH AUTO DIFFERENTIAL Routine 07/19/2025 4:08 AM CDT POCT GLUCOSE DEVICE Routine 07/19/2025 2 :04 AM CDT POCT GLUCOSE DEVICE Routine 07/18/2025 8 :19 PM CDT POCT GLUCOSE DEVICE Routine 07/18/2025 5 :03 PM CDT TRANSTHORACIC ECHO (TTE) COMPLETE W DOPPLER/CF WO CONTRAST Routine 07/18/2025 2:51 PM CDT POCT GLUCOSE DEVICE Routine 07/18/2025 1 1:38 AM CDT EGFR Routine 07/18/2025 8:20 AM CDT DIFFERENTIAL AUTO Routine 07/18/2025 8:2 0 AM CDT COMPREHENSIVE METABOLIC PANEL Routine 07/18/2025 8:20 AM CDT CBC WITH AUTO DIFFERENTIAL Routine 07/18/2025 8:20 AM CDT POCT GLUCOSE DEVICE Routine 07/18/2025 8 :11 AM CDT POCT GLUCOSE DEVICE Routine 07/18/2025 2 :[address] ABDOMEN PELVIS W CONTRAST ED 07/17/2025 10:06 PM CDT BLOOD CULTURE STAT 07/17/2025 9:41 PM CDT BLOOD CULTURE STAT 07/17/2025 9:41 PM CDT URINALYSIS, MICROSCOPIC ONLY STAT 07/17/2025 8:30 PM CDT URINE CULTURE STAT 07/17/2025 8:30 PM CDT URINALYSIS AND REFLEX TO MICROSCOPIC AND CULTURE STAT 07/17/2025 8:30 PM CDT XR CHEST PA LATERAL 2 VIEWS ED 07/17/2025 7:47 PM CDT EGFR STAT 07/17/2025 7:26 PM CDT DIFFERENTIAL AUTO STAT 07/17/2025 7:2 6 PM CDT SEPSIS LACTATE WITH REFLEX STAT 07/17/2025 7:26 PM CDT COMPREHENSIVE METABOLIC PANEL STAT 07/17/2025 7:26 PM CDT CBC WITH AUTO DIFFERENTIAL STAT 07/17/2025 7:26 PM CDT ALBUMIN CREATININE RATIO, URINE Routine 05/10/2025 9:10 AM CDT Type 2 diabetes mellitus without complication, without long-term current use of insulin (HCC) STOOL DNA COLOGUARD Routine 12/06/2024 from Last 3 Months or Most Recently Relevant to Health Maintenance Results * Throat culture Throat (08/22/2025 12:46 PM NUMEROLOGIST) Report Final Report: No growth of pathogens. Comment:Testing performed by : [facility], [address] [place]., [address] Throat 08/22/2025 12:4 6 PM NUMEROLOGIST 08/22/2025 8:42 PM NUMEROLOGIST Narrative KELLEN MOORE - 08/23/2025 4:44 PM NUMEROLOGIST Testing performed by [facility] Microbiology Laboratory ([phone]). us Arlen Dong NP LAB MICROBIOLOGY - GENERAL ORD ERABLES Final Result KELLEN MOORE [address] Department [place] [address] * POCT rapid strep A (08/22/2025 12:26 PM NUMEROLOGIST) Rapid Strep A, POC Negative Negative Swab 08/22/2025 12:2 6 PM NUMEROLOGIST Arlen Dong UNIT CONTROL CLERK POINT OF CARE TEST ORDERABLES Final Result * POC Influenza A/B, COVID-19 antigen (08/22/2025 12:16 PM NUMEROLOGIST) Influenza A Ag, POC Negative Negative [facility] Influenza B Ag, POC Negative Negative [facility] COVID-19 Ag POC Presumptive Negative Presumptive Negative, Invalid [facility] Nasal 08/22/2025 12:1 6 PM NUMEROLOGIST Arlen Dong UNIT CONTROL CLERK POINT OF CARE TEST ORDERABLES Final Result Performing Organization Address [facility] Co de Phone Number [facility] [address] [place] [address] * POCT glucose (07/20/2025 11:58 AM CDT) Glucose, POC 149 70 - 199 mg/dL Blood 07/20/2025 11:5 8 AM CDT 07/20/2025 11:58 AM CDT Isabelle Giang II, MD LAB POCT ORDERABLES - DEVICE Final Result Performing Organization Address [facility] Co de Phone Number [facility] ([address] Department [place] [address] * POCT glucose (07/20/2025 7:55 AM CDT) Glucose, POC 135 70 - 199 mg/dL Blood 07/20/2025 7:55 AM CDT 07/20/2025 7:55 AM CDT Isabelle Giang II, MD LAB POCT ORDERABLES - DEVICE Final Result Performing Organization Address [facility] Co de Phone Number KELLEN NOWAK ([place]) 1 [facility] Department [place] [address] * eGFR (07/20/2025 4:14 AM CDT) eGFR 84 >=60 mL/min/1. 73 m2 Comment: Interpretive Data Reference Interval Normal >/= 90 mL/min/1.73m2 Mildly decreased* 60 - 89 mL/min/1.73m2 Mildly to moderately decreased 45 - 59 mL/min/1.73m2 Moderately to severely decreased 30 - 44 mL/min/1.73m2 Severely decreased 15 - 29 mL/min/1.73m2 Kidney Failure < 15 mL/min/1.73m2 *Relative to young adult level Estimated glomerular filtration rate is determined by the 2020 CKD-EPI equation recommended by the National Kid[employer] Foundation (A Unifying Approach to GFR Estimation: Recommendations of the NKF-ASK Task Force on Reassessing the Inclusion of Race in Diagnosing Kidney Disease, JASN 2020). The CKD-EPI equation should not be used for patients with unstable renal function and has not been validated in children and those over 70. Current interpretive data was last reviewed 2021. Blood 07/20/2025 4:14 AM CDT 07/20/2025 5:52 AM CDT us Ady Hurley MD LAB BLOOD ORDERABLES Final Resu lt [facility] [place]) 1 [facility] Department [place] [address] * (ABNORMAL) Differential, auto (07/20/2025 4:14 AM CDT) Neutrophil abs 4.55 1.50 - 6.50 K/cumm Imm gran abs 0.02 0.00 - 0.10 K/cumm [facility] ([place]) Lymphocyte abs 0.73(L) 0.80 - 3.30 K/cumm [facility] ([place]) Monocyte abs 0.70 0.20 - 0.80 K/cumm [facility] ([place]) Eosinophil abs 0.03 0.00 - 0.50 K/cumm [facility] ([place]) Basophil abs 0.03 0.00 - 0.10 K/cumm [facility] ([place]) Neutrophil pct 75.1 % [facility] ([place]) Comment: Interpretive Data Percent cell count reference ranges are not reported, since discordance with absolute values may lead to misinterpretation of CBC data. Current Interpretive Data was last revised on 2017. Imm gran pct 0.3 % [facility] ([place]) Comment: Interpretive Data Percent cell count reference ranges are not reported, since discordance with absolute values may lead to misinterpretation of CBC data. Current Interpretive Data was last revised on 2017. Lymphocyte pct 12.0 % [facility] ([place]) Comment: Interpretive Data Percent cell count reference ranges are not reported, since discordance with absolute values may lead to misinterpretation of CBC data. Current Interpretive Data was last revised on 2017. Monocyte pct 11.6 % [facility] ([place]) Comment: Interpretive Data Percent cell count reference ranges are not reported, since discordance with absolute values may lead to misinterpretation of CBC data. Current Interpretive Data was last revised on 2017. Eosinophil pct 0.5 % [facility] ([place]) Comment: Interpretive Data Percent cell count reference ranges are not reported, since discordance with absolute values may lead to misinterpretation of CBC data. Current Interpretive Data was last revised on 2017. Basophil pct 0.5 % [facility] ([place]) Comment: Interpretive Data Percent cell count reference ranges are not reported, since discordance with absolute values may lead to misinterpretation of CBC data. Current Interpretive Data was last revised on 2017. Blood 07/20/2025 4:14 AM CDT 07/20/2025 5:51 AM CDT us Carline Crocker NP LAB BLOOD ORDERABLES Final Resul t [facility] SHE ([place]) 1 [facility] Department [place] [address] * (ABNORMAL) CBC with auto differential (07/20/2025 4:14 AM CDT) WBC 6.06 3.80 - 9.90 K/cumm Hgb 12.3(L) 13.0 - 17.5 g/dL [facility] ([place]) Hct 35.6(L) 38.9 - 50.3 % [facility] ([place]) Plt 112(L) 150 - 400 K/cumm [facility] ([place]) MPV 11.1 9.1 - 12.3 fL [facility] ([place]) RBC 4.07(L) 4.30 - 5.80 M/cumm [facility] ([place]) MCV 87.5 81.3 - 96.4 fL [facility] ([place]) MCH 30.2 27.1 - 33.3 pg [facility] ([place]) MCHC 34.6 32.3 - 35.7 g/dL [facility] ([place]) RDW CV 13.9 11.1 - 14.9 % [facility] ([place]) RDW SD 44.3 35.7 - 48.1 fL [facility] ([place]) NRBC abs 0.00 0.00 - 0.01 K/cumm [facility] ([place]) Blood 07/20/2025 4:14 AM CDT 07/20/2025 5:51 AM CDT us Carline Crocker NP LAB BLOOD ORDERABLES Final Resul t [facility] ([place]) 1 [facility] Department [place] [address] * (ABNORMAL) Comprehensive metabolic panel (07/20/2025 4:14 AM CDT) Sodium 136 135 - 145 mmol/L Potassium, pl 3.5 3.3 - 4.9 mmol/L [facility] ([place]) Chloride 103 97 - 110 mmol/L [facility] ([place]) CO2 23 22 - 32 mmol/L [facility] ([place]) Anion gap 10 2 - 15 mmol/L [facility] ([place]) BUN 19 6 - 25 mg/dL [facility] ([place]) Creatinine 0.99 0.80 - 1.30 mg/dL [facility] ([place]) Glucose 134 70 - 199 mg/dL [facility] ([place]) Comment: Interpretive Data Fasting glucose >/= 126 mg/dl is diagnostic for diabetes. Fasting is defined as no caloric intake for at least 8 hours. Fasting glucose between 100 mg/dl to 125 mg/dl is diagnostic of prediabetes. In a patient with classic symptoms of hyperglycemia or hyperglycemic crisis, a random glucose >/= 200 mg/dl is diagnostic for diabetes. In the absence of unequivocal hyperglycemia, results should be confirmed by repeat testing. The classification and Diagnosis of Diabetes Diabetes Care 202; 46: S19-S40. Current interpretive data was last revised 2022. Calcium 8.4(L) 8.5 - 10.3 mg/dL [facility] ([place]) Bilirubin, total 1.2 0.1 - 1.2 mg/dL [facility] ([place]) Protein, pl 6.4(L) 6.5 - 8.5 g/dL [facility] ([place]) Albumin 3.2(L) 3.5 - 5.0 g/dL [facility] ([place]) Alk phos 109 40 - 130 Units/L [facility] ([place]) ALT 114(H) 7 - 55 Units/L [facility] ([place]) AST 110(H) 10 - 50 Units/L [facility] ([place]) Blood 07/20/2025 4:14 AM CDT 07/20/2025 5:52 AM CDT us Ady Hurley MD LAB BLOOD ORDERABLES Final Resu lt [facility] ([place]) 1 [facility] Department of Laboratories [place], [place] [id number] * POCT glucose (07/20/2025 3:43 AM CDT) Glucose, POC 149 70 - 199 mg/dL Blood 07/20/2025 3:43 AM CDT 07/20/2025 3:43 AM CDT us Isabelle Giang II, MD LAB POCT ORDERABLES - DEVICE Final Result [facility] NOW[facility] ([place]) 1 [facility] [place] [employer] [place] [address] * POCT glucose (07/19/2025 9:28 PM CDT) Glucose, POC 132 70 - 199 mg/dL Blood 07/19/2025 9:28 PM CDT 07/19/2025 9:28 PM CDT us Isabelle Giang II, MD LAB POCT ORDERABLES - DEVICE Final Result Performing Organization Address [facility]/ZIP Co de Phone Number KELLEN NOWAK ([place]) 1 [facility] [place] [employer] [place] [address] * POCT glucose (07/19/2025 5:19 PM CDT) Glucose, POC 192 70 - 199 mg/dL Blood 07/19/2025 5:19 PM CDT 07/19/2025 5:19 PM CDT us Isabelle Giang II, MD LAB POCT ORDERABLES - DEVICE Final Result Performing Organization Address City/[facility]/ZIP Co de Phone Number [facility] NOWAK ([place]) 1 [facility] [place] [address] * POCT glucose (07/19/2025 11:46 AM CDT) Glucose, POC 164 70 - 199 mg/dL Blood 07/19/2025 11:4 6 AM CDT 07/19/2025 11:46 AM CDT us Isabelle Giang II, MD LAB POCT ORDERABLES - DEVICE Final Result [facility] NOWAK ([place]) 1 [facility] [place] [address] * POCT glucose (07/19/2025 8:49 AM CDT) Glucose, POC 152 70 - 199 mg/dL Blood 07/19/2025 8:49 AM CDT 07/19/2025 8:49 AM CDT us Isabelle Giang II, MD LAB POCT ORDERABLES - DEVICE Final Result Performing Organization Address City/[facility]/ZIP Co de Phone Number [facility] ([place]) 1 [facility]ly [facility] [place] [place] [address] * eGFR (07/19/2025 4:08 AM CDT) eGFR 70 >=60 mL/min/1. 73 m2 Comment: Interpretive Data Reference Interval Normal >/= 90 mL/min/1.73m2 Mildly decreased* 60 - 89 mL/min/1.73m2 Mildly to moderately decreased 45 - 59 mL/min/1.73m2 Moderately to severely decreased 30 - 44 mL/min/1.73m2 Severely decreased 15 - 29 mL/min/1.73m2 Kidney Failure < 15 mL/min/1.73m2 *Relative to young adult level Estimated glomerular filtration rate is determined by the 2020 CKD-EPI equation recommended by the National Kidney Foundation (A Unifying Approach to GFR Estimation: Recommendations of the NKF-ASK Task Force on Reassessing the Inclusion of Race in Diagnosing Kidney Disease, JASN 2020). The CKD-EPI equation should not be used for patients with unstable renal function and has not been validated in children and those over 70. Current interpretive data was last reviewed 2021. Blood 07/19/2025 4:08 AM CDT 07/19/2025 5:06 AM CDT us Ady Hurley MD LAB BLOOD ORDERABLES Final Resu lt Performing Organization Address City/[facility]/ZIP Co de Phone Number [facility] ([place]) 1 [facility] Department [employer] [place] [address] * (ABNORMAL) Differential, auto (07/19/2025 4:08 AM CDT) Neutrophil abs 5.46 1.50 - 6.50 K/cumm Imm gran abs 0.01 0.00 - 0.10 K/cumm [facility] ([place]) Lymphocyte abs 0.64(L) 0.80 - 3.30 K/cumm [facility] ([place]) Monocyte abs 0.47 0.20 - 0.80 K/cumm [facility] ([place]) Eosinophil abs 0.01 0.00 - 0.50 K/cumm [facility] ([place]) Basophil abs 0.03 0.00 - 0.10 K/cumm [facility] ([place]) Neutrophil pct 82.3 % [facility] ([place]) Comment: Interpretive Data Percent cell count reference ranges are not reported, since discordance with absolute values may lead to misinterpretation of CBC data. Current Interpretive Data was last revised on 2017. Imm gran pct 0.2 % [facility] ([place]) Comment: Interpretive Data Percent cell count reference ranges are not reported, since discordance with absolute values may lead to misinterpretation of CBC data. Current Interpretive Data was last revised on 2017. Lymphocyte pct 9.7 % [facility] ([place]) Comment: Interpretive Data Percent cell count reference ranges are not reported, since discordance with absolute values may lead to misinterpretation of CBC data. Current Interpretive Data was last revised on 2017. Monocyte pct 7.1 % [facility] ([place]) Comment: Interpretive Data Percent cell count reference ranges are not reported, since discordance with absolute values may lead to misinterpretation of CBC data. Current Interpretive Data was last revised on 2017. Eosinophil pct 0.2 % [facility] ([place]) Comment: Interpretive Data Percent cell count reference ranges are not reported, since discordance with absolute values may lead to misinterpretation of CBC data. Current Interpretive Data was last revised on 2017. Basophil pct 0.5 % [facility] ([place]) Comment: Interpretive Data Percent cell count reference ranges are not reported, since discordance with absolute values may lead to misinterpretation of CBC data. Current Interpretive Data was last revised on 2017. Blood 07/19/2025 4:08 AM CDT 07/19/2025 5:06 AM CDT Carline Crocker NP LAB BLOOD ORDERABLES Final Resul t [facility] ([place]) 1 [facility] [place] [employer] [place] [address] * (ABNORMAL) CBC with auto differential (07/19/2025 4:08 AM CDT) WBC 6.62 3.80 - 9.90 K/cumm Hgb 12.9(L) 13.0 - 17.5 g/dL [facility] ([place]) Hct 37.8(L) 38.9 - 50.3 % [facility] ([place]) Plt 91(L) 150 - 400 K/cumm [facility] ([place]) MPV 10.5 9.1 - 12.3 fL [facility] ([place]) RBC 4.25(L) 4.30 - 5.80 M/cumm [facility] ([place]) MCV 88.9 81.3 - 96.4 fL [facility] ([place]) MCH 30.4 27.1 - 33.3 pg [facility] ([place]) MCHC 34.1 32.3 - 35.7 g/dL [facility] ([place]) RDW CV 13.8 11.1 - 14.9 % [facility] ([place]) RDW SD 45.1 35.7 - 48.1 fL [facility] ([place]) NRBC abs 0.00 0.00 - 0.01 K/cumm [facility] ([place]) Blood 07/19/2025 4:08 AM CDT 07/19/2025 5:06 AM CDT Carline Crocker NP LAB BLOOD ORDERABLES Final Resul t Performing Organization Address City/[facility]/ZIP Co de Phone Number [facility] ([place]) 1 [facility] [place] [employer] [place] [address] * (ABNORMAL) Hemoglobin A1c (07/19/2025 4:08 AM CDT) Hgb A1C 6.7(H) 4.0 - 5.6 % Estimated Average Glucose 146 mg/dL [facility]) Comment: The ADA recommends reporting an estimated Average Glucose (eAG) with all Hemoglobin A1c results using the equation derived from a study of 507 normal and diabetic adults. Minority populations were underrepresented and children were not included. (Diabetes Care 31:0821-6833, 2008). The eAG is not equivalent to a fasting glucose. Blood 07/19/2025 4:08 AM CDT 07/19/2025 5:06 AM CDT us Isabelle Giang II, MD LAB BLOOD ORDERABLES F inal Result [facility] ([place]) 1 [facility] Department [place] [address] * (ABNORMAL) Lipid panel (07/19/2025 4:08 AM CDT) Cholesterol 85 30 - 199 mg/dL Comment: Interpretive Data Ages < or = 19 years Acceptable: <170 mg/dL Borderline high: 170-199 mg/dL High: >or= 200 mg/dL Ages > or = 20 years Desirable: <200 mg/dL Borderline high: 200-239 mg/dL High: >or= 240 mg/dL Literature References: 1. Expert Panel on Integrated Guidelines for Cardiovascular Health and Risk Reduction in Children and Adolescents. Pediatrics 2011;128:S213 2. NCEP Expert Panel. Circulation 2004;110:227 Current Interpretive Data was last revised on 2018. Triglycerides 145 <=149 mg/dL [facility] ([place]) Comment: Interpretive Data Ages < or = 9 years Acceptable: <75 mg/dL Borderline high: 75-99 mg/dL High: >or= 100 mg/dL Ages 10 to 20 years Acceptable: <90 mg/dL Borderline high: 90-129 mg/dL High: >or= 130 mg/dL Ages > or = 20 years Desirable: <150 mg/dL Borderline high: 150-199 mg/dL High: 200-499 mg/dL Very high: >or= 499 mg/dL Literature References: 1. Expert Panel on Integrated Guidelines for Cardiovascular Health and Risk Reduction in Children and Adolescents. Pediatrics 2011;128:S213 2. NCEP Expert Panel. Circulation 2004;110:227 Current Interpretive Data was last revised on 2018. HDL 23(L) >=40 mg/dL [facility] Trammell ([place]) Comment: Interpretive Data Ages < or = 19 years Acceptable: >45 mg/dL Borderline low: 40-45 mg/dL Low: <40 mg/dL Ages > or = 20 years Desirable: >or= 60 mg/dL Low: <40 mg/dL Literature References: 1. Expert Panel on Integrated Guidelines for Cardiovascular Health and Risk Reduction in Children and Adolescents. Pediatrics 2011;128:S213 2. NCEP Expert Panel. Circulation 2004;110:227 Current Interpretive Data was last revised on 2018. LDL, calculated 37 <=129 mg/dL [facility] ([place]) Comment: Interpretive Data Ages < or = 19 years Acceptable: <110 mg/dL Borderline high: 110-129 mg/dL High: >or= 130 mg/dL Ages > or = 20 years Optimal: <100 mg/dL Near optimal: 100-129 mg/dL Borderline high: 130-159 mg/dL High: >160 mg/dL Calculated using the Dionisio LDL-C estimating equation. This equation was implemented on 2024. Prior to this date LDL-C was estimated using the Friedewald equation. Literature References: 1. Expert Panel on Integrated Guidelines for Cardiovascular Health and Risk Reduction in Children and Adolescents. Pediatrics 2011;128:S213 2. NCEP Expert Panel. Circulation 2004;110:227 3. Dionisio Padron al. VIJAY Cardiol. 2019January 19;5(5):540-548. doi: 10.1001/[email or web address] Current Interpretive Data was last revised on 2024. Non-HDL Cholesterol 62 mg/dL [facility] ([place]) Comment: Interpretive Data Ages < or = 19 years Acceptable: <120 mg/dL Borderline high: 120-144 mg/dL High: >145 mg/dL Ages > or = 20 years When triglycerides are >200 mg/dL, Non-HDL cholesterol is a secondary target of therapy with treatment goals that are 30 mg/dL greater than the LDL cholesterol target. Literature References: 1. Expert Panel on Integrated Guidelines for Cardiovascular Health and Risk Reduction in Children and Adolescents. Pediatrics 2011;128:S213 2. NCEP Expert Panel. Circulation 2004;110:227 Current Interpretive Data was last revised on 2018. Chol/HDL ratio 4 [facility] ([place]) Blood 07/19/2025 4:08 AM CDT 07/19/2025 5:06 AM CDT us Isabelle Giang II, MD LAB BLOOD ORDERABLES F inal Result [facility] ([place]) 1 [facility] Department [place] [address] * (ABNORMAL) Comprehensive metabolic panel (07/19/2025 4:08 AM CDT) Sodium 137 135 - 145 mmol/L Potassium, pl 3.5 3.3 - 4.9 mmol/L [facility] ([place]) Chloride 102 97 - 110 mmol/L [facility] ([place]) CO2 25 22 - 32 mmol/L [facility] ([place]) Anion gap 10 2 - 15 mmol/L [facility] ([place]) BUN 22 6 - 25 mg/dL [facility] ([place]) Creatinine 1.15 0.80 - 1.30 mg/dL [facility] ([place]) Glucose 129 70 - 199 mg/dL [facility] ([place]) Comment: Interpretive Data Fasting glucose >/= 126 mg/dl is diagnostic for diabetes. Fasting is defined as no caloric intake for at least 8 hours. Fasting glucose between 100 mg/dl to 125 mg/dl is diagnostic of prediabetes. In a patient with classic symptoms of hyperglycemia or hyperglycemic crisis, a random glucose >/= 200 mg/dl is diagnostic for diabetes. In the absence of unequivocal hyperglycemia, results should be confirmed by repeat testing. The classification and Diagnosis of Diabetes Diabetes Care 2021; 46: S19-S40. Current interpretive data was last revised 2022. Calcium 8.5 8.5 - 10.3 mg/dL [facility] ([place]) Bilirubin, total 1.3(H) 0.1 - 1.2 mg/dL [facility] ([place]) Protein, pl 6.4(L) 6.5 - 8.5 g/dL [facility] ([place]) Albumin 3.3(L) 3.5 - 5.0 g/dL [facility] ([place]) Alk phos 75 40 - 130 Units/L [facility] ([place]) ALT 47 7 - 55 Units/L [facility] ([place]) AST 49 10 - 50 Units/L [facility] ([place]) Blood 07/19/2025 4:08 AM CDT 07/19/2025 5:06 AM CDT us Ady Hurley MD LAB BLOOD ORDERABLES Final Resu lt Performing Organization Address City/[facility]/ZIP Co de Phone Number [facility] ([place]) 1 [facility] [place] [employer] [place] [address] * POCT glucose (07/19/2025 2:04 AM CDT) Glucose, POC 139 70 - 199 mg/dL Blood 07/19/2025 2:04 AM CDT 07/19/2025 2:04 AM CDT us Isabelle Giang II, MD LAB POCT ORDERABLES - DEVICE Final Result Performing Organization Address [facility]/ZIP Co de Phone Number [facility] ([place]) 1 [facility] [place] [employer] [place] [address] * POCT glucose (07/18/2025 8:19 PM CDT) Glucose, POC 160 70 - 199 mg/dL Blood 07/18/2025 8:19 PM CDT 07/18/2025 8:19 PM CDT us Isabelle Giang II, MD LAB POCT ORDERABLES - DEVICE Final Result Performing Organization Address City/[facility]/ZIP Co de Phone Number [facility] ([place]) 1 [facility] [employer] [place] [address] * POCT glucose (07/18/2025 5:03 PM CDT) [facility] Glucose, POC 174 70 - 199 mg/dL Blood 07/18/2025 5:03 PM CDT 07/18/2025 5:03 PM CDT us Isabelle Giang II, MD LAB POCT ORDERABLES - DEVICE Final Result [facility] ([place]) 1 [facility] Department [place] [address] * TRANSTHORACIC ECHO (TTE) COMPLETE W DOPPLER/CF WO CONTRAST (07/18/2025 2:51 PM CDT) [facility] Estimated EF 60-70 % CONS SCIMAGE EF Mod BP 57 % CONS SCIMAGE Anatomical Region Laterality Modality Ultrasound 07/18/2025 2:33 PM CDT Narrative 07/18/2025 3:42 PM CDT [address] [address] Echocardiogram Report Patient Name: MARKUS CHRISTOPHER : 1960 Study Date: 07/18/2025 2:33:02 PM Sex: M Tech: Location: [id number] Ref Provider: ISABELLE GIANG Height(Cm): BSA: Weight(Kg): Quality: Adequate Order Provider: ISABELLE GIANG PROCEDURES: Echocardiographic Report: Transthoracic echocardiogram with complete 2D, M-Mode, and color Doppler examination. INDICATIONS: bacteremia. MEASUREMENTS: 2D/MM Value Range Doppler Value Range EF Teich MM 57.0 % [ 52.0 - 72.0 ] YOLIS Vmax 3.34 cm2 EF Mod BP 57 % [ 52 - 72 ] AV Mean PG 5 mmHg Estimated EF 60-70 % AV Peak Live 1.43 m/s [ 1.00 - 1.70 ] LVIDd MM 4.90 cm [ 4.20 - 5.80 ] AV VTI 26.25 cm LVIDs MM 3.50 cm [ 2.50 - 4.00 ] LVOT Diam 2.39 cm LVPWd MM 0.80 cm [ 0.60 - 1.00 ] LVOT Peak Live 1.07 m/s [ 0.70 - 1.10 ] IVSd MM 1.00 cm [ 0.60 - 1.00 ] LVOT VTI 18.96 cm LA Dimension MM 4.35 cm [ 3.00 - 4.00 ] MV E Peak Live 0.97 m/s [ 0.60 - 1.30 ] AoR Diam MM 3.52 cm [ 3.10 - 3.70 ] MV A Peak Live 0.88 m/s [ 1.00 - 1.20 ] ACS MM 2.05 cm [ 1.50 - 2.60 ] MV Mean PG 2 mmHg MV PHT 56 msec [ 20 - 100 ] MVA 4.00 MV Decel Time 192 msec [ 104 - 258 ] PV Peak Live 0.67 m/s [ 0.40 - 0.80 ] TR Peak Live 2.24 m/s [ 1.00 - 2.80 ] TR Peak PG 20 mmHg RVSP 28.00 mmHg [ 10.00 - 36.00 ] E` 0.06 m/s E/E` 16.87 [ <= 10.00 ] PA Pressure 28.00 mmHg [ 10.00 - 36.00 ] 2D/MM Value Range Doppler Value Range - FINDINGS: Atrial Septum: Normal atrial septum. Left Ventricle: Normal left ventricular systolic function with no focal wall motion abnormalities. Normal left ventricular size. Normal left ventricular wall thickness. Normal left ventricular diastolic function. Ejection fraction is measured at 57 %. Ejection Fraction is estimated to be 60-70 %. Left Atrium: There is mild enlargement of left atrium. Right Ventricle: Normal right ventricular size. Normal right ventricular systolic function. Right Atrium: The right atrium is normal in size. Aortic Valve: No evidence of hemodynamically significant aortic stenosis by Doppler. Aortic cusps appear mildly sclerotic. Trace aortic valve regurgitation. Mitral Valve: Mitral valve leaflets appear mildly thickened. Trivial regurgitation of the mitral valve. Pulmonic Valve: Normal structure of the pulmonic valve. Tricuspid Valve: Normal structure of the tricuspid valve. Normal right ventricular systolic pressure. Trivial regurgitation in the tricuspid valve. Pericardium: Normal pericardium with no significant pericardial effusion. Aorta: Ascending aorta is normal. There is mild atherosclerosis in the aortic root. IVC: The IVC is not well visualized. Pulmonary Artery: Pulmonary artery not well visualized. CONCLUSIONS: Normal left ventricular systolic function with no focal wall motion abnormalities. Normal left ventricular size. Normal left ventricular wall thickness. Normal left ventricular diastolic function. Ejection fraction is measured at 57 %. Ejection Fraction is estimated to be 60-70 %. Normal right ventricular size. Normal right ventricular systolic function. There is mild enlargement of left atrium. Mitral valve leaflets appear mildly thickened. Trivial regurgitation of the mitral valve. No evidence of hemodynamically significant aortic stenosis by Doppler. Aortic cusps appear mildly sclerotic. Trace aortic valve regurgitation. Normal structure of the tricuspid valve. Normal right ventricular systolic pressure. Trivial regurgitation in the tricuspid valve. Normal pericardium with no significant pericardial effusion. Technically difficult study with limited views. Subcostal views not visible. Valves in general are poorly visualized. Electronically Signed By: Martine Joseph MD 07/18/2025 3:41:25 PM CDT Procedure Note Martine Joseph MD - 07/18/[address] [address] Echocardiogram Report Patient Name: MARKUS CHRISTOPHER : 1960 Study Date: 07/18/2025 2:33:02 PM Sex: M Tech: Location: [id number] Ref Provider: ISABELLE GIANG Height(Cm): BSA: Weight(Kg): Quality: Adequate Order Provider: ISABELLE GIANG PROCEDURES: Echocardiographic Report: Transthoracic echocardiogram with complete 2D, M-Mode, and color Dopplerexamination. INDICATIONS: bacteremia. MEASUREMENTS: 2D/MM Value Range Doppler ValueRange EF Teich MM 57.0 % [ 52.0 - 72.0 ] OYLIS Vmax 3.34cm2 EF Mod BP 57 % [ 52 - 72 ] AV Mean PG 5 mmHg Estimated EF 60-70 % AV Peak Live 1.43 m/s[ 1.00 - 1.70 ] LVIDd MM 4.90 cm [ 4.20 - 5.80 ] AV VTI 26.25cm LVIDs MM 3.50 cm [ 2.50 - 4.00 ] LVOT Diam 2.39cm LVPWd MM 0.80 cm [ 0.60 - 1.00 ] LVOT Peak Live 1.07 m/s[ 0.70 - 1.10 ] IVSd MM 1.00 cm [ 0.60 - 1.00 ] LVOT VTI 18.96cm LA Dimension MM 4.35 cm [ 3.00 - 4.00 ] MV E Peak Live 0.97 m/s[ 0.60 - 1.30 ] AoR Diam MM 3.52 cm [ 3.10 - 3.70 ] MV A Peak Live 0.88 m/s[ 1.00 - 1.20 ] ACS MM 2.05 cm [ 1.50 - 2.60 ] MV Mean PG 2 mmHg MV PHT 56 msec [ 20 - 100 ] MVA 4.00 MV Decel Time 192 msec [ 104 - 258 ] PV Peak Live 0.67 m/s [ 0.40 - 0.80 ] TR Peak Live 2.24 m/s [ 1.00 - 2.80 ] TR Peak PG 20 mmHg RVSP 28.00 mmHg [ 10.00 - 36.00 ] E` 0.06 m/s E/E` 16.87 [ <= 10.00 ] PA Pressure 28.00 mmHg [ 10.00 - 36.00 ] 2D/MM Value Range Doppler ValueRange - FINDINGS: Atrial Septum: Normal atrial septum. Left Ventricle: Normal left ventricular systolic function with no focal wall motionabnormalities. Normal left ventricular size. Normal left ventricular wall thickness. Normal leftventricular diastolic function. Ejection fraction is measured at 57 %. EjectionFraction is estimated to be 60-70 %. Left Atrium: There is mild enlargement of left atrium. Right Ventricle: Normal right ventricular size. Normal right ventricular systolicfunction. Right Atrium: The right atrium is normal in size. Aortic Valve: No evidence of hemodynamically significant aortic stenosis by Doppler.Aortic cusps appear mildly sclerotic. Trace aortic valve regurgitation. Mitral Valve: Mitral valve leaflets appear mildly thickened. Trivial regurgitation ofthe mitral valve. Pulmonic Valve: Normal structure of the pulmonic valve. Tricuspid Valve: Normal structure of the tricuspid valve. Normal right ventricular systolicpressure. Trivial regurgitation in the tricuspid valve. Pericardium: Normal pericardium with no significant pericardial effusion. Aorta: Ascending aorta is normal. There is mild atherosclerosis in the aorticroot. IVC: The IVC is not well visualized. Pulmonary Artery: Pulmonary artery not well visualized. CONCLUSIONS: Normal left ventricular systolic function with no focal wall motionabnormalities. Normal left ventricular size. Normal left ventricular wall thickness. Normal leftventricular diastolic function. Ejection fraction is measured at 57 %. EjectionFraction is estimated to be 60-70 %. Normal right ventricular size. Normal right ventricular systolicfunction. There is mild enlargement of left atrium. Mitral valve leaflets appear mildly thickened. Trivial regurgitation ofthe mitral valve. No evidence of hemodynamically significant aortic stenosis by Doppler.Aortic cusps appear mildly sclerotic. Trace aortic valve regurgitation. Normal structure of the tricuspid valve. Normal right ventricular systolicpressure. Trivial regurgitation in the tricuspid valve. Normal pericardium with no significant pericardial effusion. Technically difficult study with limited views. Subcostal views notvisible. Valves in general are poorly visualized. Electronically Signed By: Martine Joseph MD 07/18/2025 3:41:25 PM CDT Isabelle Giang II, MD CV ECHO PROCEDURES [facility] al Result * POCT glucose (07/18/2025 11:38 AM CDT) Glucose, POC 173 70 - 199 mg/dL Blood 07/18/2025 11:3 8 AM CDT 07/18/2025 11:38 AM CDT us Isabelle Giang II, MD LAB POCT ORDERABLES - DEVICE Final Result [facility] ([place]) 1 [facility] [place] [employer] [place] [address] * eGFR (07/18/2025 8:20 AM CDT) eGFR 71 >=60 mL/min/1. 73 m2 Comment: Interpretive Data Reference Interval Normal >/= 90 mL/min/1.73m2 Mildly decreased* 60 - 89 mL/min/1.73m2 Mildly to moderately decreased 45 - 59 mL/min/1.73m2 Moderately to severely decreased 30 - 44 mL/min/1.73m2 Severely decreased 15 - 29 mL/min/1.73m2 Kidney Failure < 15 mL/min/1.73m2 *Relative to young adult level Estimated glomerular filtration rate is determined by the 2020 CKD-EPI equation recommended by the National Kidney Foundation (A Unifying Approach to GFR Estimation: Recommendations of the NKF-ASK Task Force on Reassessing the Inclusion of Race in Diagnosing Kidney Disease, JASN 2020). The CKD-EPI equation should not be used for patients with unstable renal function and has not been validated in children and those over 70. Current interpretive data was last reviewed 2021. Blood 07/18/2025 8:20 AM CDT 07/18/2025 8:39 AM CDT us Ady Hurley MD LAB BLOOD ORDERABLES Final Resu lt [facility] ([place]) 1 [facility] [place] [place] [address] * (ABNORMAL) Differential, auto (07/18/2025 8:20 AM CDT) Neutrophil abs 8.38(H) 1.50 - 6.50 K/cumm Imm gran abs 0.04 0.00 - 0.10 K/cumm [facility] ([place]) Lymphocyte abs 0.83 0.80 - 3.30 K/cumm [facility] ([place]) Monocyte abs 0.72 0.20 - 0.80 K/cumm [facility] ([place]) Eosinophil abs 0.00 0.00 - 0.50 K/cumm [facility] ([place]) Basophil abs 0.02 0.00 - 0.10 K/cumm [facility] ([place]) Neutrophil pct 83.9 % [facility] ([place]) Comment: Interpretive Data Percent cell count reference ranges are not reported, since discordance with absolute values may lead to misinterpretation of CBC data. Current Interpretive Data was last revised on 2017. Imm gran pct 0.4 % [facility] ([place]) Comment: Interpretive Data Percent cell count reference ranges are not reported, since discordance with absolute values may lead to misinterpretation of CBC data. Current Interpretive Data was last revised on 2017. Lymphocyte pct 8.3 % [facility] ([place]) Comment: Interpretive Data Percent cell count reference ranges are not reported, since discordance with absolute values may lead to misinterpretation of CBC data. Current Interpretive Data was last revised on 2017. Monocyte pct 7.2 % [facility] ([place]) Comment: Interpretive Data Percent cell count reference ranges are not reported, since discordance with absolute values may lead to misinterpretation of CBC data. Current Interpretive Data was last revised on 2017. Eosinophil pct 0.0 % [facility] ([place]) Comment: Interpretive Data Percent cell count reference ranges are not reported, since discordance with absolute values may lead to misinterpretation of CBC data. Current Interpretive Data was last revised on 2017. Basophil pct 0.2 % [facility] ([place]) Comment: Interpretive Data Percent cell count reference ranges are not reported, since discordance with absolute values may lead to misinterpretation of CBC data. Current Interpretive Data was last revised on 2017. Blood 07/18/2025 8:20 AM CDT 07/18/2025 8:39 AM CDT Kamal Lizzette UNIT CONTROL CLERK LAB BLOOD ORDERABLES Final Resul t Performing Organization Address City/[facility]/ZIP Co de Phone Number [facility] ([place]) 1 [facility] [place] [address] * (ABNORMAL) CBC with auto differential (07/18/2025 8:20 AM CDT) Pathologist [facility] WBC 9.99(H) 3.80 - 9.90 K/cumm Hgb 13.3 13.0 - 17.5 g/dL [facility] ([place]) Hct 39.1 38.9 - 50.3 % [facility] ([place]) Plt 112(L) 150 - 400 K/cumm [facility] ([place]) MPV 10.8 9.1 - 12.3 fL [facility] ([place]) RBC 4.45 4.30 - 5.80 M/cumm [facility] ([place]) MCV 87.9 81.3 - 96.4 fL [facility] ([place]) MCH 29.9 27.1 - 33.3 pg [facility] ([place]) MCHC 34.0 32.3 - 35.7 g/dL [facility] ([place]) RDW CV 13.4 11.1 - 14.9 % [facility] ([place]) RDW SD 43.4 35.7 - 48.1 fL [facility] ([place]) NRBC abs 0.00 0.00 - 0.01 K/cumm [facility] ([place]) Blood 07/18/2025 8:20 AM CDT 07/18/2025 8:39 AM CDT Carline Crocker NP LAB BLOOD ORDERABLES Final Resul t Performing Organization Address City/[facility]/ZIP Co de Phone Number [facility] ([place]) 1 [facility] Department [place] [address] * Comprehensive metabolic panel (07/18/2025 8:20 AM CDT) [facility] Sodium 138 135 - 145 mmol/L Potassium, pl 3.4 3.3 - 4.9 mmol/L [facility] ([place]) Chloride 102 97 - 110 mmol/L [facility] ([place]) CO2 25 22 - 32 mmol/L [facility] ([place]) Anion gap 11 2 - 15 mmol/L [facility] ([place]) BUN 19 6 - 25 mg/dL [facility] ([place]) Creatinine 1.14 0.80 - 1.30 mg/dL [facility] ([place]) Glucose 149 70 - 199 mg/dL [facility] ([place]) Comment: Interpretive Data Fasting glucose >/= 126 mg/dl is diagnostic for diabetes. Fasting is defined as no caloric intake for at least 8 hours. Fasting glucose between 100 mg/dl to 125 mg/dl is diagnostic of prediabetes. In a patient with classic symptoms of hyperglycemia or hyperglycemic crisis, a random glucose >/= 200 mg/dl is diagnostic for diabetes. In the absence of unequivocal hyperglycemia, results should be confirmed by repeat testing. The classification and Diagnosis of Diabetes Diabetes Care 2021; 46: S19-S40. Current interpretive data was last revised 2022. Calcium 8.8 8.5 - 10.3 mg/dL [facility] ([place]) Bilirubin, total 0.9 0.1 - 1.2 mg/dL [facility] ([place]) Protein, pl 6.8 6.5 - 8.5 g/dL [facility] ([place]) Albumin 3.7 3.5 - 5.0 g/dL [facility] ([place]) Alk phos 56 40 - 130 Units/L [facility] ([place]) ALT 30 7 - 55 Units/L [facility] ([place]) AST 25 10 - 50 Units/L [facility] ([place]) Blood 07/18/2025 8:20 AM CDT 07/18/2025 8:39 AM CDT us Ady Hurley MD LAB BLOOD ORDERABLES Final Resu lt [facility] ([place]) 1 [facility] Department [place] [address] * POCT glucose (07/18/2025 8:11 AM CDT) Glucose, POC 136 70 - 199 mg/dL Blood 07/18/2025 8:11 AM CDT 07/18/2025 8:11 AM CDT Ady Hurley MD LAB POCT ORDERABLES - DEVICE Fi nal Result [facility] [place]) 1 [facility] [place] [employer] [place] [address] * POCT glucose (07/18/2025 2:18 AM CDT) Glucose, POC 148 70 - 199 mg/dL Blood 07/18/2025 2:18 AM CDT 07/18/2025 2:18 AM CDT Ady Hurley MD LAB POCT ORDERABLES - DEVICE Fi nal Result Performing Organization Address [facility] Co de Phone Number [facility] [place]) 1 [facility] [place] [employer] [place] [address] * CT Abdomen Pelvis W Contrast (07/17/2025 10:06 PM CDT) Anatomical Region Laterality Modality Body N/A Computed Tomogra phy 07/17/2025 10:1 8 PM CDT Impressions 07/17/2025 10:18 PM CDT 1. No acute process is seen. No findings are seen to explain the patient's symptoms. Electronically signed by: Segun Fletcher M.D. Narrative 07/17/2025 10:18 PM CDT MEDICAL RECORDS NUMBER: [id number] PROCEDURE: CT ABDOMEN PELVIS W CONTRAST DATE: 07/17/2025 9:55 PM HISTORY: 64 years old Male. Abdominal pain, acute, nonlocalized. IV Contrast: Optiray 350, 100 cc Oral Contrast: No oral contrast was utilized. COMPARISON: None RADIATION DOSE INFORMATION: Automated exposure control dose reduction techniques were used. FINDINGS: Lung bases: Limited evaluation of the lung bases demonstrates no focal airspace process or pneumothorax. Mediastinum:Lower mediastinal structures appear unremarkable. Liver: The liver is normal in size. There is no focal liver lesion. Biliary ducts: There is no evidence of intrahepatic or extrahepatic biliary ductal dilatation. Gallbladder: No abnormality is seen of the gallbladder. Spleen: The spleen is normal in size without focal lesion. Stomach: The stomach appears unremarkable. Pancreas: The pancreas is unremarkable. Adrenal glands: The adrenal glands are unremarkable. Kidneys: October 0.5 cm cyst is seen in the posterior aspect of the left kidney. This appears benign. The kidneys otherwise appear unremarkable. No obstructing renal or ureteral stone is seen. No renal or ureteral stones are seen. Aorta and IVC: The aorta and IVC are patent and are normal in size. Mesenteric vessels: Major mesenteric vessels appear to be intact. Bowel: The visualized portions of the small and large bowel are normal in caliber. Appendix: The appendix is not well seen. Pelvis:Pelvic structures appear unremarkable. Lymph nodes: There is no evidence of lymphadenopathy. Osseous structures: Degenerative changes are seen in the lumbar spine to mild degree. Free fluid/free air: None Procedure Note Segun Fletcher MD - 07/17/2025 MEDICAL RECORDS NUMBER: [id number] PROCEDURE: CT ABDOMEN PELVIS W CONTRAST DATE: 07/17/2025 9:55 PM HISTORY: 64 years old Male. Abdominal pain, acute, nonlocalized. IV Contrast: Optiray 350, 100 cc Oral Contrast: No oral contrast was utilized. COMPARISON: None RADIATION DOSE INFORMATION: Automated exposure control dose reduction techniques were used. FINDINGS: Lung bases: Limited evaluation of the lung bases demonstrates no focal airspace process or pneumothorax. Mediastinum:Lower mediastinal structures appear unremarkable. Liver: The liver is normal in size. There is no focal liver lesion. Biliary ducts: There is no evidence of intrahepatic or extrahepatic biliary ductal dilatation. Gallbladder: No abnormality is seen of the gallbladder. Spleen: The spleen is normal in size without focal lesion. Stomach: The stomach appears unremarkable. Pancreas: The pancreas is unremarkable. Adrenal glands: The adrenal glands are unremarkable. Kidneys: October 0.5 cm cyst is seen in the posterior aspect of the left kidney. This appears benign. The kidneys otherwise appear unremarkable. No obstructing renal or ureteral stone is seen. No renal or ureteral stones are seen. Aorta and IVC: The aorta and IVC are patent and are normal in size. Mesenteric vessels: Major mesenteric vessels appear to be intact. Bowel: The visualized portions of the small and large bowel are normal in caliber. Appendix: The appendix is not well seen. Pelvis:Pelvic structures appear unremarkable. Lymph nodes: There is no evidence of lymphadenopathy. Osseous structures: Degenerative changes are seen in the lumbar spine to mild degree. Free fluid/free air: None IMPRESSION: 1. No acute process is seen. No findings are seen to explain the patient's symptoms. Electronically signed by: Segun Fletcher M.D. Carline Crocker NP IM CT PROCEDURES Final Result * (ABNORMAL) Blood culture Blood Peripheral (07/17/2025 9:41 PM CDT) Direct Specimen Exam Stain: Gram Negative Bacilli Time to culture positivity (anaerobic media): 14.7 hours Comment:Testing performed by : [facility], [address] [place] [address]., [id number] Report Final Report: Klebsiella pneumoniae For susceptibility results, refer to accession number [id number] on the blood culture from 07/17/2025 (.) [facility] ([place]) Comment:Testing performed by : [facility], [address] [place] [address]., [id number] Organism KLEBSIELLA PNEUMONIAE [facility] ([place]) Blood (Peripheral) 07/17/2025 9:41 PM CDT 07/18/2025 12:36 AM CDT Narrative [facility] ([place]) - 07/23/2025 8:02 AM NUMEROLOGIST From a different site than #1. Draw Blood cultures before administration of Antibiotics Collection->Peripheral 1. Blood cultures are incubated for 4 days on a continuously monitored blood culture system. The first report of a negative culture is issued within 24 hours of receipt of the specimen in the laboratory. 2. Positive culture results are reported as soon as they are detected. 3. The most important factor for detection of microbes in the setting of bloodstream infection is the volume of blood submitted for culture. Failure to collect an optimal blood volume can result in false negative blood cultures. 4. For pediatric patients, the recommended blood volume to collect follows a weight based strategy. See the electronic test catalog for collection instructions. 5. For positive blood cultures, a rapid molecular test may be performed for organism identification using the bam ePlex blood culture identification panel for gram positive (BCID-GP) and gram negative (BCID-GN) organisms. This nucleic acid amplification test detects microbial DNA in positive blood culture broth. This assay has been cleared by the [place] Food and Drug Administration and its performance characteristics have been verified by the [facility] Microbiology Laboratory. For questions about this culture, contact the Microbiology Laboratory at [phone]. Interpretive data was last revised on 24. Carline Crocker NP LAB MICROBIOLOGY - GENERAL ORDER SRIRAM Final Result [facility] ([place]) 1 [facility] Department [place] [address] * (ABNORMAL) Blood culture Blood Peripheral (07/17/2025 9:41 PM CDT) Direct Specimen Exam Molecular Analysis: Klebsiella pneumoniae group detected by bam ePlex BCID-GN panel. This test does not exclude the possibility of a mixed bacterial infection. Notification of: Klebsiella pneumoniae group called to and read back by: Hyun Jefferson COFFEE URN ATTENDANT ,[phone] on 07/18/2025 17:43:33 by: Tamara Lovell HI Results phoned to and read back by: Amanda Ignacio RN [facility] on 07/18/2025 17:53:15 by: [email or web address] Comment:Testing performed by : [facility], [address] [place] [address]., [id number] Direct Specimen Exam Stain: Gram Negative Bacilli Time to culture positivity (anaerobic media): 10.4 hours Time to culture positivity (aerobic media): 10.9 hours Notification of: Gram Negative Bacilli called to and read back by: Myla Manzo MT [phone] on 07/18/2025 11:43:34 by: Luis Rodgers Test result called to and read back by Sheryl Yuen [facility] on 07/18/2025 11:47:11 by Myla Manzo. [facility] ([place]) Comment:Testing performed by : [facility], [address] [place] [address]., [id number] Report Final Report: Klebsiella pneumoniae (.) [facility] ([place]) Comment:Testing performed by : [facility], [address] [place]., [address] Organism KLEBSIELLA PNEUMONIAE [facility] ([place]) Blood (Peripheral) 07/17/2025 9:41 PM CDT 07/18/2025 12:36 AM CDT Narrative [facility] ([place]) - 07/21/2025 10:43 AM CDT Draw Blood cultures before administration of Antibiotics Collection->Peripheral 1. Blood cultures are incubated for 4 days on a continuously monitored blood culture system. The first report of a negative culture is issued within 24 hours of receipt of the specimen in the laboratory. 2. Positive culture results are reported as soon as they are detected. 3. The most important factor for detection of microbes in the setting of bloodstream infection is the volume of blood submitted for culture. Failure to collect an optimal blood volume can result in false negative blood cultures. 4. For pediatric patients, the recommended blood volume to collect follows a weight based strategy. See the electronic test catalog for collection instructions. 5. For positive blood cultures, a rapid molecular test may be performed for organism identification using the bam ePlex blood culture identification panel for gram positive (BCID-GP) and gram negative (BCID-GN) organisms. This nucleic acid amplification test detects microbial DNA in positive blood culture broth. This assay has been cleared by the [place] Food and Drug Administration and its performance characteristics have been verified by the [facility] Microbiology Laboratory. For questions about this culture, contact the Microbiology Laboratory at [phone]. Interpretive data was last revised on 24. Organism Antibiotic Method Susceptibility Klebsiella pneumoniae Ampicillin INTERPRETATION Resistant Klebsiella pneumoniae Cefazolin INTERPRETATION Susceptible Klebsiella pneumoniae Gentamicin INTERPRETATION Susceptible Klebsiella pneumoniae Ampicillin with Sulbactam INTERP RETATION Susceptible Klebsiella pneumoniae Trimethoprim with Sulfamethoxazole INTERPRETATION Susceptible Klebsiella pneumoniae Meropenem INTERPRETATION Susceptible Klebsiella pneumoniae Cefepime INTERPRETATION Susceptible Klebsiella pneumoniae Ciprofloxacin INTERPRETATION Susceptible Klebsiella pneumoniae Ceftazidime INTERPRETATION Susceptible Klebsiella pneumoniae Ceftriaxone INTERPRETATION Susceptible Klebsiella pneumoniae Piperacillin/Tazobactam INTERPRE TATION Susceptible us Carline Crocker NP LAB MICROBIOLOGY - GENERAL ORDER SRIRAM Final Result [facility] ([place]) 1 [facility] Department [place] [address] * (ABNORMAL) Urinalysis reflex to microscopic and culture Urine (07/17/2025 8:30 PM CDT) Color, ur Yellow Yellow Clarity, ur Turbid(A) Clear [facility] ([place]) Specific gravity, ur 1.026 1.003 - 1.030 [facility] ([place]) pH, urine 6.0 [facility] ([place]) Comment: Interpretive Data U rine pH is affected by diet, medications, systemic acid-base disturbances, and renal tubular function. pH may affect urinary stone formation. For example, urine pH below 6.0 may help reduce the tendency for calcium phosphate stones and pH greater than 6.0 may reduce the tendency for uric acid stone formation. Source: [facility] [employer] Current Interpretive Data was last revised on 2017 Protein, ur ql 2+(A) Negative [facility] ([place]) Glucose, ur ql Negative Negative [facility] ([place]) Ketones, ur 2+(A) Negative [facility] ([place]) Bilirubin, ur Negative Negative [facility] ([place]) Blood, ur 3+(A) Negative [facility] ([place]) Urobilinogen, ur 2.0(A) <2.0 mg/dL [facility] ([place]) Nitrite, ur Negative Negative [facility] ([place]) Leukocyte esterase, ur 3+(A) Negative [facility] ([place]) UA reflex comment Reflex to microscopic UA will be performed. [facility] ([place]) Urine 07/17/2025 8:30 PM CDT 07/17/2025 8:34 PM CDT Narrative [facility] ([place]) - 07/17/2025 8:37 PM CDT If patient unable to urinate, straight cath us Carline Crocker NP LAB MICROBIOLOGY - GENERAL ORDER SRIRAM Final Result [facility] ([place]) 1 [facility] Department [place] [address] * (ABNORMAL) Urinalysis, microscopic only (07/17/2025 8:30 PM CDT) WBC, ur >50(A) 0 - 5 /HPF RBC, ur 11-20(A) 0 - 2 /HPF [facility] ([place]) Epithelial cells, squamous, ur 1-5 0 - 5 /HPF [facility] ([place]) Bacteria, ur 4+(A) [facility] ([place]) Mucous, ur Present(A) [facility] A ([place]) Culture Reflex Comment Reflex to urine culture will be performed. [facility] ([place]) Urine 07/17/2025 8:30 PM CDT 07/17/2025 8:34 PM CDT us Carline Crocker NP LAB URINE ORDERABLES Final Resul t [facility] ([place]) 1 [facility] Department [place] [address] * (ABNORMAL) Urine culture Urine (07/17/2025 8:30 PM CDT) Report Final Report: Greater than or equal to 100,000 colonies/mL of Klebsiella pneumoniae (.) Comment:Testing performed by : [facility], 1 [facility] [place] [address] Organism KLEBSIELLA PNEUMONIAE [facility] ([place]) Urine 07/17/2025 8:30 PM CDT 07/18/2025 12:24 AM CDT Narrative [facility] ([place]) - 07/20/2025 12:24 PM CDT Urine culture reflexed based upon urinalysis results. Testing performed by [facility] Microbiology Laboratory ([phone]) Organism Antibiotic Method Susceptibility Klebsiella pneumoniae Ampicillin INTERPRETATION Resistant Klebsiella pneumoniae Cefazolin INTERPRETATION Susceptible Klebsiella pneumoniae Nitrofurantoin INTERPRETATION Resistant Klebsiella pneumoniae Gentamicin INTERPRETATION Susceptible Klebsiella pneumoniae Trimethoprim with Sulfamethoxazole INTERPRETATION Susceptible Klebsiella pneumoniae Meropenem INTERPRETATION Susceptible Klebsiella pneumoniae Cefepime INTERPRETATION Susceptible Klebsiella pneumoniae Ciprofloxacin INTERPRETATION Susceptible Klebsiella pneumoniae Ceftazidime INTERPRETATION Susceptible Klebsiella pneumoniae Ceftriaxone INTERPRETATION Susceptible Klebsiella pneumoniae Piperacillin/Tazobactam INTERPRE TATION Susceptible Klebsiella pneumoniae Cephalexin INTERPRETATION Susceptible Klebsiella pneumoniae Cefuroxime-axetil INTERPRETATION Susceptible Klebsiella pneumoniae Cefdinir INTERPRETATION Susceptible Carline Crocker NP LAB MICROBIOLOGY - GENERAL ORDER SRIRAM Final Result [facility] ([place]) 1 [facility] Department [place] [address] * XR Chest PA Lateral 2 Views (If patient hemodynamically stable and ambulatory) (07/17/2025 7:47 PM CDT) Anatomical Region Laterality Modality Body, Chest N/A Computed Radiogr aphy 07/17/2025 8:14 PM CDT Impressions 07/17/2025 8:14 PM CDT FINDINGS/IMPRESSION: Lungs: Diffuse minor chronic changes of the lungs are noted. No acute lung pathology is seen. Mediastinum: Mediastinal structures appear unremarkable... Skeletal: The skeletal structures appear unremarkable. Electronically signed by: Segun Fletcher M.D. Narrative 07/17/2025 8:14 PM CDT MEDICAL RECORDS NUMBER: [id number] PROCEDURE: XR CHEST PA LATERAL 2 VIEWS DATE: 07/17/2025 7:20 PM HISTORY: 64 years old Male. fever Views: 2 COMPARISON: None Procedure Note Segun Fletcher MD - 07/17/2025 MEDICAL RECORDS NUMBER: [id number] PROCEDURE: XR CHEST PA LATERAL 2 VIEWS DATE: 07/17/2025 7:20 PM HISTORY: 64 years old Male. fever Views: 2 COMPARISON: None IMPRESSION: FINDINGS/IMPRESSION: Lungs: Diffuse minor chronic changes of the lungs are noted. No acute lung pathology is seen. Mediastinum: Mediastinal structures appear unremarkable... Skeletal: The skeletal structures appear unremarkable. Electronically signed by: Segun Fletcher M.D. Carline Crocker NP IMG XR PROCEDURES Final Result * Sepsis Lactate w/ Reflex (07/17/2025 7:26 PM CDT) Sepsis Lactate 1.4 0.7 - 2.0 mmol/L Blood 07/17/2025 7:26 PM CDT 07/17/2025 7:31 PM CDT Carline Crocker NP LAB BLOOD ORDERABLES Final Resul t [facility] ([place]) 1 [facility] [employer] [place] [employer] [address] * eGFR (07/17/2025 7:26 PM CDT) eGFR 64 >=60 mL/min/1. 73 m2 Comment: Interpretive Data Reference Interval Normal >/= 90 mL/min/1.73m2 Mildly decreased* 60 - 89 mL/min/1.73m2 Mildly to moderately decreased 45 - 59 mL/min/1.73m2 Moderately to severely decreased 30 - 44 mL/min/1.73m2 Severely decreased 15 - 29 mL/min/1.73m2 Kidney Failure < 15 mL/min/1.73m2 *Relative to young adult level Estimated glomerular filtration rate is determined by the 2020 CKD-EPI equation recommended by the National Kidney Foundation (A Unifying Approach to GFR Estimation: Recommendations of the NKF-ASK Task Force on Reassessing the Inclusion of Race in Diagnosing Kidney Disease, JASN 2020). The CKD-EPI equation should not be used for patients with unstable renal function and has not been validated in children and those over 70. Current interpretive data was last reviewed 2021. Blood 07/17/2025 7:26 PM CDT 07/17/2025 7:31 PM CDT Carline Crocker NP LAB BLOOD ORDERABLES Final Resul t [facility] ([place]) 1 [facility] [place] [employer] [address] * (ABNORMAL) Differential, auto (07/17/2025 7:26 PM CDT) Neutrophil abs 9.85(H) 1.50 - 6.50 K/cumm Imm gran abs 0.04 0.00 - 0.10 K/cumm [facility] ([place]) Lymphocyte abs 0.56(L) 0.80 - 3.30 K/cumm [facility] ([place]) Monocyte abs 0.91(H) 0.20 - 0.80 K/cumm [facility] ([place]) Eosinophil abs 0.00 0.00 - 0.50 K/cumm [facility] ([place]) Basophil abs 0.04 0.00 - 0.10 K/cumm [facility] ([place]) Neutrophil pct 86.3 % [facility] ([place]) Comment: Interpretive Data Percent cell count reference ranges are not reported, since discordance with absolute values may lead to misinterpretation of CBC data. Current Interpretive Data was last revised on 2017. Imm gran pct 0.4 % [facility] ([place]) Comment: Interpretive Data Percent cell count reference ranges are not reported, since discordance with absolute values may lead to misinterpretation of CBC data. Current Interpretive Data was last revised on 2017. Lymphocyte pct 4.9 % [facility] ([place]) Comment: Interpretive Data Percent cell count reference ranges are not reported, since discordance with absolute values may lead to misinterpretation of CBC data. Current Interpretive Data was last revised on 2017. Monocyte pct 8.0 % [facility] ([place]) Comment: Interpretive Data Percent cell count reference ranges are not reported, since discordance with absolute values may lead to misinterpretation of CBC data. Current Interpretive Data was last revised on 2017. Eosinophil pct 0.0 % [facility] ([place]) Comment: Interpretive Data Percent cell count reference ranges are not reported, since discordance with absolute values may lead to misinterpretation of CBC data. Current Interpretive Data was last revised on 2017. Basophil pct 0.4 % [facility] ([place]) Comment: Interpretive Data Percent cell count reference ranges are not reported, since discordance with absolute values may lead to misinterpretation of CBC data. Current Interpretive Data was last revised on 2017. Blood 07/17/2025 7:26 PM CDT 07/17/2025 7:31 PM CDT us Carline Crocker NP LAB BLOOD ORDERABLES Final Resul t [facility] ([place]) 1 [facility] [place] [address] * (ABNORMAL) CBC with auto differential (07/17/2025 7:26 PM CDT) WBC 11.40(H) 3.80 - 9.90 K/cumm Hgb 14.7 13.0 - 17.5 g/dL [facility] ([place]) Hct 42.6 38.9 - 50.3 % [facility] ([place]) Plt 133(L) 150 - 400 K/cumm [facility] ([place]) MPV 10.4 9.1 - 12.3 fL [facility] ([place]) RBC 4.93 4.30 - 5.80 M/cumm [facility] ([place]) MCV 86.4 81.3 - 96.4 fL [facility] ([place]) MCH 29.8 27.1 - 33.3 pg [facility] ([place]) MCHC 34.5 32.3 - 35.7 g/dL [facility] ([place]) RDW CV 13.4 11.1 - 14.9 % [facility] ([place]) RDW SD 42.4 35.7 - 48.1 fL [facility] ([place]) NRBC abs 0.00 0.00 - 0.01 K/cumm [facility] ([place]) Blood 07/17/2025 7:26 PM CDT 07/17/2025 7:31 PM CDT Carline Crocker NP LAB BLOOD ORDERABLES Final Resul t [facility] ([place]) 1 [facility] [employer] [place] [address] * (ABNORMAL) Comprehensive metabolic panel (07/17/2025 7:26 PM CDT) Sodium 134(L) 135 - 145 mmol/L Potassium, pl 3.3 3.3 - 4.9 mmol/L [facility] ([place]) Chloride 98 97 - 110 mmol/L [facility] ([place]) CO2 24 22 - 32 mmol/L [facility] ([place]) Anion gap 12 2 - 15 mmol/L [facility] ([place]) BUN 19 6 - 25 mg/dL [facility] ([place]) Creatinine 1.24 0.80 - 1.30 mg/dL [facility] ([place]) Glucose 160 70 - 199 mg/dL [facility] ([place]) Comment: Interpretive Data Fasting glucose >/= 126 mg/dl is diagnostic for diabetes. Fasting is defined as no caloric intake for at least 8 hours. Fasting glucose between 100 mg/dl to 125 mg/dl is diagnostic of prediabetes. In a patient with classic symptoms of hyperglycemia or hyperglycemic crisis, a random glucose >/= 200 mg/dl is diagnostic for diabetes. In the absence of unequivocal hyperglycemia, results should be confirmed by repeat testing. The classification and Diagnosis of Diabetes Diabetes Care 2021; 46: S19-S40. Current interpretive data was last revised 2022. Calcium 9.1 8.5 - 10.3 mg/dL [facility] ([place]) Bilirubin, total 1.4(H) 0.1 - 1.2 mg/dL [facility] ([place]) Protein, pl 7.2 6.5 - 8.5 g/dL [facility] ([place]) Albumin 4.1 3.5 - 5.0 g/dL [facility] ([place]) Alk phos 65 40 - 130 Units/L [facility] ([place]) ALT 40 7 - 55 Units/L [facility] ([place]) AST 32 10 - 50 Units/L [facility] ([place]) Blood 07/17/2025 7:26 PM CDT 07/17/2025 7:31 PM CDT us Carline Crocker NP LAB BLOOD ORDERABLES Final Resul t [facility] ([place]) 1 [facility] Department [place] [address] * Albumin Creatinine Ratio, Urine (05/10/2025 9:10 AM CDT) Albumin Ur <12.0 mg/L Comment: Interpretive Data No reference range established. Current interpretive data was last revised 2019. Creatinine Ur 169.0 mg/dL KE[facility]EN Comment: Interpretive Data No reference range established. Current interpretive data was last revised 2019. Albumin Creatinine Ratio, Ur <7 1 - 29 mg/g [facility] Urine 05/10/2025 9:10 AM CDT 05/10/2025 10:46 AM CDT Nanda Rizo MD LAB URINE ORDERABLES Final Result [facility] [address] [facility] [place] [address] * Stool DNA - Cologuard (12/06/2024) Stool 12/06/2024 Historical Provider LAB BODY FLUIDS AND STOOL S ORDERABLES Final Result EXTERNAL LAB from Last 3 Months or Most Recently Relevant to Health Maintenance Insurance [facility] Member Subscriber Plan / Payer (Ef fective 1899-Present) Name:Markus Christopher Relation to Subscriber:Self Name:Markus Christopher Payer ID:[id number] (IC) Group ID:[id number] Type:[facility] Address: [facility] [id number] [address] [facility] [employer] Advance Directives For more information, please contact: [phone] * Full Code (Latest Code Status on File) Date Activated Date Inactivated Comments 07/18/2025 12:11 AM 07/20/2025 4:43 PM Care Teams Marketing Production Manager Relationship Specialty Start Date End Date Nanda Rizo MD [address] [place] [address] [address] [place] [address] PCP - General Family Medicine 05/01/25 Martine Joseph MD [address] [facility] [address] [place] [address] Consulting Physician Cardiology 05/01/25 Lisa John MD [address] [facility] [address] [place] [address] Referring Physician Urology 05/01/25
[2025-09-16 13:00] LABS: Influenza A QL RT-PCR Negative (Negative); Influenza B QL RT-PCR Negative (Negative); RSV RNA, RT-PCR Negative (Negative); SARS-CoV-2 RNA PCR Negative (Negative)
--- OUTSIDE RECORDS SUMMARY | 2025-09-16 14:33 | XMS_ITS | Encounter Summary ---
Author Organization [facility] Address [address] [place] [address] Phone Care Team Providers Care Bolting Machine Operator Name Role Phone Charlie Berry MD Unavailable Edelmira Ontiveros APRN, CNP Primary Care P rovider Lisa John MD Primary Care Provider Unava ilable Edelmira Ontiveros APRN, CNP Primary Care P rovider Reason for Visit * Reason Comments Medication Refill Encounter Details Date Type Department Care Team (Late st Contact Info) Description 02/09/2024 Refill [facility] - Primary Care - [place] [address] [place] [address] Sharmila Yanes MD [address] [place], [place] [id number] Medication Refill Social History Tobacco Use Types [...] file 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 Gender Identity Not on file Sexual Orientation Not on file 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 Not on file Not on file documented as of this encounter Miscellaneous Notes * Telephone Encounter - Tracey Amaro RN - 02/09/2024 12:25 PM CDT Medication(s) [facility] Chronic Medication Refill Standing Order for Pediatricand [...] Provider Dept 12/15/23 Office Visit Lily Mcmahan, [facility] 10/29/23 Office Visit Lily Mcmahan, [facility] 10/26/23 Office Visit Edelmira Ontiveros APRN, CRISTIAN [facility] 06/01/23 Office Visit Kaushal Vanegas, [facility] 04/24/23 Office Visit Sharmila Yanes MD [facility] Showing recent visits within past 365 days and meeting all other requirements Future Appointments Date Type Provider Dept 04/25/24 Appointment Edelmira Ontiveros APRN, CAN CRIMPER [facility] Showing future appointments within next 90 days [...] Score: 1 11/10/19 19 2:00 PM MANAGER MULTICULTURAL documented as of this encounter Care Teams Bolting Machine Operator Relationship Specialty Start Date End Date Edelmira Ontiveros APRN, CAN CRIMPER [address] [place] [address] PCP - General Advanced Practice Nurse 10/26/23 Lisa John MD PCP - General Urology 04/05/25 04/09/25 Edelmira Ontiveros APRN, CAN CRIMPER [address] [place] [address] PCP - General Advanced Practice Nurse 04/10/25 Charlie Berry MD [address] [place] [address] [place] [phone] Neurologist Neurology 05/13/18 documented as of this encounter
--- OUTSIDE RECORDS SUMMARY | 2025-09-16 14:33 | XMS_ITS | Encounter Summary ---
Author Organization [facility] Address [address] [place] [address] Phone Care Team Providers Care Director Of Supply Chain Name Role Phone Teri Quevedo MD Primary Care Provider + [phone] Charlie Berry MD Unavailable Sharmila Yanes MD Primary Care Provider + [phone] Edelmira Ontiveros APRN, DYNAMOMETER REPAIRER Primary Care P rovider Lisa John MD Primary Care Provider Unava ilable Edelmira Ontiveros APRN, [facility] Primary Care P rovider Reason for Visit * Reason Comments Medication Refill Encounter Details Date Type Department Care Team (Late st Contact Info) Description 06/07/2022 Refill [facility] - Primary Care - [place] [address] [place] [address] Teri Quevedo MD [address] [place] [address] Medication Refill Social History Tobacco Use [...] on file 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 Gender Identity Not on file Sexual Orientation Not on file 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 Not on file [...] Dept 04/18/22 Office Visit Teri Quevedo MD [facility] Showing recent visits within past 182 [...] 19 08/11/2022 08/11/2022 08/21/2022 12:1 6 AM PENCIL INSPECTOR COVID - 19 01/22/2023 01/22/2023 02/01/2023 12:1 6 AM CDT COVID - 19 04/05/2024 04/05/2024 04/05/2024 11:0 6 AM CDT COVID - 19 Confirmed 04/05/2024 04/05/2024 024 12:19 AM CDT Assessment Noted Time PHQ-9 Depression Total Score: 1 11/10/19 19 2:00 PM PENCIL INSPECTOR documented as of this encounter Care Teams Director Of Supply Chain Relationship Specialty Start Date End Date Teri Quevedo MD PCP - General Family Medicine 10/15/15 10/23/22 Sharmila Yanes MD [address] [place] [address] PCP - General Family Medicine 10/24/22 10/25/23 Edelmira Ontiveros APRN, DYNAMOMETER REPAIRER [address] [place] [address] PCP - General Advanced Practice Nurse 10/26/23 Lisa John MD PCP - General Urology 04/05/25 04/09/25 Edelmira Ontiveros APRN, DYNAMOMETER REPAIRER [address] [place] [address] PCP - General Advanced Practice Nurse 04/10/25 Charlie Berry MD [address] [place] [address] [place] [phone] Neurologist Neurology 05/13/18 documented as of this encounter
--- OUTSIDE RECORDS SUMMARY | 2025-09-16 14:33 | XMS_ITS | Encounter Summary ---
Author Organization [facility] Address [address] [place] [address] Care Team Providers Care Clothes Ironer Name Role Phone Sharmila Yanes MD Primary Care Provider [phone] Martine Joseph MD Primary Care Provider + [phone] Martine Joseph MD Unavailable [phone] Nanda Rizo MD Primary Care Provide r Lisa John MD Unavailable Reason for Visit * Auth/Cert (Routine) Specialty Diagnoses / Procedures Referred By Contchas t Referred To Contact Diagnoses Colon cancer screening History of colonoscopy with polypectomy Rectal itching Colon cancer screening [Z12.11] History of colonoscopy with polypectomy [Z98.890, Z86.010] Rectal itching [L29.0] Procedures SC COLONOSCOPY FLX DX W/COLLJ SPEC WHEN PFRMD COLONOSCOPY Referral ID Status Reason Start Date Expiration Date Visits Re quested Visits Authorized [id number] 1 1 Encounter Details Date Type Department Care Team (Late st Contact Info) Description 10/28/[address] Encounter [facility] [address] [place] [address] Paulo Pino MD [address] [place] [address] [address], [place] [address] Social History Tobacco Use Types Packs/Day Years [...] often do you attend chur ch or presybeterian services? More than 4 times per year 07/18/2025 Do you belong to any clubs o r organizations such as episcopal groups, unions, fraternal or athletic groups, or [...] any time in the past 12 m [facility], were you homeless or living in a detention (including now)? No 07/18/2025 [facility] Utilities Answer Date Recorded In the [...] on file Legal Sex Male 8:39 PM EDUCATION AND TRAINING MANAGER Gender Identity Not on file Sexual Orientation [...] COVID: Suspected 08/22/2025 08/22/2025 08/22/2025 12:33 PM EDUCATION AND TRAINING MANAGER documented as of this encounter Care Teams Clothes Ironer Relationship Specialty Start Date End Date Sharmila Yanes MD PCP - General Family Medicine 11/06/22 03/21/25 Martine Joseph MD [address] [place] [address] [address] [place] [address] PCP - General Cardiology 03/22/25 04/30/25 Nanda Rizo MD [address] [place] [address] [address] [place] [address] PCP - General Family Medicine 05/01/25 Martine Joseph MD [address] [place] [address] [address] [place] [id number] Consulting Physician Cardiology 05/01/25 Lisa John MD [address] [facility] [address] [place] [address] Referring Physician Urology 05/01/25 documented as of this encounter
--- OUTSIDE RECORDS SUMMARY | 2025-09-16 14:33 | XMS_ITS | Encounter Summary ---
Author Organization [facility] Address [address] [place] [address] Phone Care Team Providers Care Operations Scheduler Name Role Phone Charlie Berry MD Unavailable Edelmira Ontiveros APRN, CRISTIAN Primary Care P rovider Lisa John MD Primary Care Provider Unava ilable Edelmira Ontiveros APRN, CRISTIAN Primary Care P rovider Reason for Visit * Reason Comments Medication Refill Encounter Details Date Type Department Care Team (Late st Contact Info) Description 09/11/[address] 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 Not on file Not on file documented as of this encounter Plan of Treatment Not on file documented as of this encounter Visit Diagnoses Diagnosis Essential hypertension Unspecified essential hypertension documented in this encounter Additional Health Concerns Assessment Noted Time PHQ-9 Depression Total Score: 1 11/10/19 19 2:00 PM AUTOMOTIVE INSTRUCTOR documented as of this encounter Care Teams Operations Scheduler Relationship Specialty Start Date End Date Edelmira Ontiveros APRN, ODD PIECE CHECKER [address] [place] [address] PCP - General Advanced Practice Nurse 10/26/23 Lisa John MD PCP - General Urology 04/05/25 04/09/25 Edelmira Ontiveros APRN, ODD PIECE CHECKER [address] [place] [address] PCP - General Advanced Practice Nurse 04/10/25 Charlie Berry MD [facility] [place] [address] [place] [phone] Neurologist Neurology 05/13/18 documented as of this encounter
--- OUTSIDE RECORDS SUMMARY | 2025-09-16 14:33 | XMS_ITS | Encounter Summary ---
Author Organization [facility] Address [address] [place] [address] Phone Care Team Providers Care Well Surveying Engineer Name Role Phone Charlie Berry MD Unavailable Edelmira Ontiveros APRN, COMMUNICATION SPEC Primary Care P rovider Reason for Visit * Reason Comments Medication Refill Encounter Details Date Type Department Care Team (Late st Contact Info) Description 07/22/2025 Refill [facility] - Family Medicine [facility] [address] [place] [phone] Edelmira Ontiveros APRN, COMMUNICATION SPEC [address] [place] [address] Medication Refill Social History Tobacco Use Types Packs/Day Years Used Date Smoking Tobacco: Never Smokeless Tobacco: Never Alcohol Use Standard Drinks/Week Comments Yes 0 (1 standard drink = 0.6 oz pur e alcohol) occasionally [facility] Utilities Answer Date Recorded In the [...] declined 01/10/2025 How often do you attend baptism or sikh serv ices? 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 Not on file Not on file documented as of this encounter Plan of Treatment Not on file documented as of this encounter Visit Diagnoses Not on filedocumented in this encounter Additional Health Concerns Assessment Noted Time PHQ-9 Depression Total Score: 0 02/21/20 3:27 PM CDT documented as of this encounter Care Teams Well Surveying Engineer Relationship Specialty Start Date End Date Edelmira Ontiveros APRN, COMMUNICATION SPEC [address] [place] [address] PCP - General Advanced Practice Nurse 04/10/25 Charlie Berry MD [address] [facility] [address] [place] [phone] Neurologist Neurology 05/13/18 documented as of this encounter
--- OUTSIDE RECORDS SUMMARY | 2025-09-16 14:33 | XMS_ITS | Encounter Summary ---
Author Organization [facility] Address [address] [place] [address] Phone Care Team Providers Care Knife Sharpener Name Role Phone Charlie Berry MD Unavailable Edelmira Ontiveros APRN, CNP Primary Care P rovider Lisa John MD Primary Care Provider Unava ilable Edelmira Ontiveros APRN, CNP Primary Care P rovider Reason for Visit * Reason Comments Medication Refill Encounter Details Date Type Department Care Team (Late st Contact Info) Description 04/30/2024 Refill [facility] - Primary Care - [place] [address] [place] [address] Kaushal Vaneags PAC [address] [place] [address] Medication Refill Social History Tobacco [...] on file Legal Sex Male 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 Gender Identity Not on file Sexual Orientation Not on file 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 file Not on file Not [...] Total Score: 1 11/10/19 19 2:00 PM STORAGE BATTERY INSPECTOR documented as of this encounter Care Teams Knife Sharpener Relationship Specialty Start Date End Date Edelmira Ontiveros APRN, CRISTIAN [address] [place] [address] PCP - General Advanced Practice Nurse 10/26/23 Lisa John MD PCP - General Urology 04/05/25 04/09/25 Edelmira Ontiveros APRN, BIOFUELS ENGINEERING MANAGER [address] [place] [address] PCP - General Advanced Practice Nurse 04/10/25 Charlie Berry MD [address] [place] [address] [place] [place] [phone] Neurologist Neurology 05/13/18 documented as of this encounter
--- OUTSIDE RECORDS SUMMARY | 2025-09-16 14:33 | XMS_ITS | Encounter Summary ---
Author Organization [facility] Address [address] [place] [address] Phone Care Team Providers Care Special Service Officer Name Role Phone Charlie Berry MD Unavailable Edelmira Ontiveros APRN, CRISTIAN Primary Care P rovider Lisa John MD Primary Care Provider Unava ilable Edelmira Ontiveros APRN, CRISTIAN Primary Care P rovider Reason for Visit * Reason Comments Medication Refill Encounter Details Date Type Department Care Team (Late st Contact Info) Description 12/28/2023 Refill [facility] - Family [facility] [address] [place] [address] Sharmila Yanes MD [address] [place] [address] Medication Refill Social History Tobacco Use Types [...] on file Legal Sex Male 9:40 AM NETEZZA ARCHITECT Gender Identity Not on file Sexual Orientation Not on file 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 Not on file Not on file documented as of this encounter Miscellaneous Notes * Telephone Encounter - Gomez Escamilla RN - 12/28/2023 2:21 PM CDT [facility]) [facility] Medication Refill Standing Order for Pediatricand [...] Provider Dept 12/15/23 Office Visit Lily Mcmahan, [facility] 10/29/23 Office Visit Lily Mcmahan, [facility] 10/26/23 Office Visit Edelmira Ontiveros APRN, CRISTIAN [facility] 06/01/23 Office Visit Kaushal Vanegas PAC [facility] 04/24/23 Office Visit Sharmila Yanes MD [facility] 01/29/23 Office Visit Sharmila Yanes MD [facility] 01/22/23 Office Visit Kaushal Vanegas, [facility] Showing recent visits within past [...] Total Score: 1 11/10/19 19 2:00 PM NETEZZA ARCHITECT documented as of this encounter Care Teams Special Service Officer Relationship Specialty Start Date End Date Edelmira Ontiveros APRN, [place] [place] [address] [place] [address] PCP - General Advanced Practice Nurse 10/26/23 Lisa John MD PCP - General Urology 04/05/25 04/09/25 Edelmira Ontiveros APRN, [place] WARDEN [address] [place] [address] PCP - General Advanced Practice Nurse 04/10/25 Charlie Berry MD [address] [facility] [address] [facility] [address] [place] [address] Neurologist Neurology 05/13/18 documented as of this encounter
--- OUTSIDE RECORDS SUMMARY | 2025-09-16 14:33 | XMS_ITS | Encounter Summary ---
Author Organization [facility] Address [address] [place] [address] Phone Care Team Providers Care Education Associate Name Role Phone Charlie Berry MD Unavailable Edelmira Ontiveros APRN, CNP Primary Care P rovider Lisa John MD Primary Care Provider Unava ilable Edelmira Ontiveros APRN, CNP Primary Care P rovider Reason for Visit * Reason Comments Medication Refill Encounter Details Date Type Department Care Team (Late st Contact Info) Description 11/03/2023 Refill [facility] - Primary Care - [place] [address] [place] [address] Sharmila Yanes MD [address] [place], [place] [address] Medication Refill Social History Tobacco Use Types [...] on file 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 Gender Identity Not on file Sexual Orientation Not on file 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 Not on file Not [...] Total Score: 1 11/10/19 19 2:00 PM SUPERVISOR POWER REACTOR documented as of this encounter Care Teams Education Associate Relationship Specialty Start Date End Date Edelmira Ontiveros APRN, STUD SHEEP FARMER [address] [place] [address] PCP - General Advanced Practice Nurse 10/26/23 Lisa John MD PCP - General Urology 04/05/25 04/09/25 Edelmira Ontiveros APRN, STUD SHEEP FARMER [address] [place] [address] PCP - General Advanced Practice Nurse 04/10/25 Charlie Berry MD [address] [facility] [address] [place] [phone] Neurologist Neurology 05/13/18 documented as of this encounter
--- OUTSIDE RECORDS SUMMARY | 2025-09-16 14:33 | XMS_ITS | Encounter Summary ---
Author Organization [facility] Address [address] [place] [address] Phone Care Team Providers Care Ruby On Rails Engineer Name Role Phone Charlie Berry MD Unavailable Edelmira Ontiveros APRN, CRISTIAN Primary Care P rovider Lisa John MD Primary Care Provider Unava ilable Edelmira Ontiveros APRN, CRISTINA Primary Care P rovider Reason for Visit * Reason Comments Medication Refill Encounter Details Date Type Department Care Team (Late st Contact Info) Description 01/08/2024 Refill [facility] - Family Medicine [facility] [address] [place] [address] Sharmila Yanes MD [address] [place] [address] Medication Refill Social History Tobacco Use Types [...] on file Legal Sex Male 9:40 AM ALLIANCES CONSULTANT Gender Identity Not on file Sexual Orientation [...] Dept 12/15/23 Office Visit Lily Mcmahan, PAC [facility] 10/29/23 Office Visit Lily Mcmahan, PAC [facility] 10/26/23 Office Visit Edelmira Ontiveros APRN, CONCRETE CRUSHER LOADER OPERATOR [facility] Showing recent visits within past [...] Total Score: 1 11/10/19 19 2:00 PM ALLIANCES CONSULTANT documented as of this encounter Care Teams Ruby On Rails Engineer Relationship Specialty Start Date End Date Edelmira Ontiveros APRN, CRISTIAN [address] [place] [address] PCP - General Advanced Practice Nurse 10/26/23 Lisa John MD PCP - General Urology 04/05/25 04/09/25 Edelmira Ontiveros APRN, CONCRETE CRUSHER LOADER OPERATOR [address] [place] [address] PCP - General Advanced Practice Nurse 04/10/25 Charlie Berry MD [address] [place] [address] [place] [phone] Neurologist Neurology 05/13/18 documented as of this encounter
--- OUTSIDE RECORDS SUMMARY | 2025-09-16 14:33 | XMS_ITS | Encounter Summary ---
Author Organization [facility] Address [address] [place] [address] Phone Care Team Providers Care Binding Machine Operator Name Role Phone Teri Quevedo MD Primary Care Provider + [phone] Charlie Berry MD Unavailable Sharmila Yanes MD Primary Care Provider + [phone] Edelmira Ontiveros APRN, [facility] Primary Care P rovider Lisa John MD Primary Care Provider Unava ilable Edelmira Ontiveros APRN, [facility] Primary Care P rovider Reason for Visit * Reason Comments Medication Refill Encounter Details Date Type Department Care Team (Late st Contact Info) Description 06/08/2021 Refill [facility] - Primary Care - [place] [address] [place] [address] Teri Quevedo MD [address] [place] [address] Medication Refill Social History Tobacco Use [...] on file Legal Sex Male 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 WARP TRUCKER Gender Identity Not on file Sexual Orientation Not on file 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 Not on file [...] 19 08/11/2022 08/11/2022 08/21/2022 12:1 6 AM WARP TRUCKER COVID - 19 01/22/2023 01/22/2023 02/01/2023 12:1 6 AM CDT COVID - 19 04/05/2024 04/05/2024 04/05/2024 11:0 6 AM CDT COVID - 19 Confirmed 04/05/2024 04/05/2024 024 12:19 AM CDT Assessment Noted Time PHQ-9 Depression Total Score: 1 11/10/19 19 2:00 PM WARP TRUCKER documented as of this encounter Care Teams Binding Machine Operator Relationship Specialty Start Date End Date Teri Quevedo MD PCP - General Family Medicine 10/15/15 10/23/22 Sharmila Yaens MD [address] [place] [address] PCP - General Family Medicine 10/24/22 10/25/23 Edelmira Ontiveros APRN, FIELD BROOMER [address] [place] [address] PCP - General Advanced Practice Nurse 10/26/23 Lisa John MD PCP - General Urology 04/05/25 04/09/25 Edelmira Ontiveros APRN, FIELD BROOMER [address] [address] PCP - General Advanced Practice Nurse 04/10/25 Charlie Berry MD [address] [place] [address] [place] [phone] Neurologist Neurology 05/13/18 documented as of this encounter
--- OUTSIDE RECORDS SUMMARY | 2025-09-16 14:33 | XMS_ITS | Encounter Summary ---
Author Organization [facility] Address [address] [place] [address] Phone Care Team Providers Care Sales Representative Metals Name Role Phone Teri Quevedo MD Primary Care Provider + [phone] Charlie Berry MD Unavailable Sharmila Yanes MD Primary Care Provider + [phone] Edelmira Ontiveros APRN, [facility] Primary Care P rovider Lisa John MD Primary Care Provider Unava ilable Edelmira Ontiveros APRN, [facility] Primary Care P rovider Reason for Visit * Reason Comments Medication Refill Encounter Details Date Type Department Care Team (Late st Contact Info) Description 05/24/2021 Refill [facility] - Primary Care - [place] [address] [place] [address] Teri Quevedo MD [address] [place] [address] Medication Refill Social History Tobacco Use [...] on file Legal Sex Male 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 PHARMACIST Gender Identity Not on file Sexual Orientation Not on file 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 Not on file [...] Dept 05/20/21 Office Visit Edelmira Ontiveros APN, CONTACT CENTER AGENT [facility] 03/28/21 Office Visit Teri Quevedo MD [facility] Showing recent visits within past 182 days [...] Dept 05/20/21 Office Visit Edelmira Ontiveros APN, CONTACT CENTER AGENT [facility] [address] 03/28/21 Office Visit Teri Quevedo MD [facility] [address] [facility] 09/27/20 Telemedicine Teri Quevedo MD [facility] [address] 08/24/20 Telemedicine Teri Quevedo MD [facility] [address] [facility] Showing recent visits within past 365 [...] 19 08/11/2022 08/11/2022 08/21/2022 12:1 6 AM NUCLEAR PHARMACIST COVID - 19 01/22/2023 01/22/2023 02/01/2023 12:1 6 AM CDT COVID - 19 04/05/2024 04/05/2024 04/05/2024 11:0 6 AM CDT COVID - 19 Confirmed 04/05/2024 04/05/2024 024 12:19 AM CDT Assessment Noted Time PHQ-9 Depression Total Score: 1 11/10/19 19 2:00 PM NUCLEAR PHARMACIST documented as of this encounter Care Teams Sales Representative Metals Relationship Specialty Start Date End Date Teri Quevedo MD PCP - General Family Medicine 10/15/15 10/23/22 Sharmila Yanes MD [address] [place] [address] PCP - General Family Medicine 10/24/22 10/25/23 Edelmira Ontiveros APRN, CONTACT CENTER AGENT [address] [place] [address] PCP - General Advanced Practice Nurse 10/26/23 Lisa John MD PCP - General Urology 04/05/25 04/09/25 Edelmira Ontiveros APRN, CONTACT CENTER AGENT [address] [place] [address] PCP - General Advanced Practice Nurse 04/10/25 Charlie Berry MD [address] [place], [place] [address] [address] [place] [phone] Neurologist Neurology 05/13/18 documented as of this encounter
--- OUTSIDE RECORDS SUMMARY | 2025-09-16 14:33 | XMS_ITS | Encounter Summary ---
Author Organization [facility] Address [address] [place] [address] Phone Care Team Providers Care Coding Quality Analyst Name Role Phone Teri Quevedo MD Primary Care Provider + [phone] Charlie Berry MD Unavailable Sharmila Yanes MD Primary Care Provider + [phone] Edelmira Ontiveros APRN, [facility] Primary Care P rovider Lisa John MD Primary Care Provider Unava ilable Edelmira Ontiveros APRN, [facility] Primary Care P rovider Reason for Visit * Reason Comments Medication Refill Encounter Details Date Type Department Care Team (Late st Contact Info) Description 07/28/2021 [facility]ill [facility] [address] [place] [address] Teri Quevedo MD [address] [place] [address] Medication Refill Social History Tobacco [...] on file 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 Gender Identity Not on file Sexual Orientation Not on file 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 Not on file Not on file Not [...] 19 08/11/2022 08/11/2022 08/21/2022 12:1 6 AM ELECTRICIAN LOCOMOTIVE COVID - 19 01/22/2023 01/22/2023 02/01/2023 12:1 6 AM CDT COVID - 19 04/05/2024 04/05/2024 04/05/2024 11:0 6 AM CDT COVID - 19 Confirmed 04/05/2024 04/05/2024 024 12:19 AM CDT Assessment Noted Time PHQ-9 Depression Total Score: 1 11/10/19 19 2:00 PM ELECTRICIAN LOCOMOTIVE documented as of this encounter Care Teams Coding Quality Analyst Relationship Specialty Start Date End Date Teri Quevedo MD PCP - General Family Medicine 10/15/15 10/23/22 Sharmila Yanes MD [address] [place] [address] PCP - General Family Medicine 10/24/22 10/25/23 Edelmira Ontiveros APRN, NEEDLE PROCESS FELT GOODS SUPERVISOR [address] [address] PCP - General Advanced Practice Nurse 10/26/23 Lisa John MD PCP - General Urology 04/05/25 04/09/25 Edelmira Ontiveros APRN, NEEDLE PROCESS FELT GOODS SUPERVISOR [address] [address] PCP - General Advanced Practice Nurse 04/10/25 Charlie Berry MD [address] [facility] [place] [address] [place] [phone] Neurologist Neurology 05/13/18 documented as of this encounter
--- OUTSIDE RECORDS SUMMARY | 2025-09-16 14:33 | XMS_ITS | Clinical Summary ---
Author Organization [facility] Address [address] [place] [address] Care Team Providers Care Spiral Winding Machine Helper Name Role Phone Teri Quevedo MD Primary Care Provider [phone] Allergies No known active allergies Immunizations Immunization [...] to complete this topic Insurance Care Teams Spiral Winding Machine Helper Relationship Specialty Start Date End Date Teri Quevedo MD PCP - General FAMILY PRACTICE 05/17/21
--- OUTSIDE RECORDS SUMMARY | 2025-09-16 14:33 | XMS_ITS | Encounter Summary ---
Author Organization [facility] Address [address] [place] [address] Phone Care Team Providers Care Laser/Electro Optics Technician Name Role Phone Teri Quevedo MD Primary Care Provider + [phone] Charlie Berry MD Unavailable Sharmila Yanes MD Primary Care Provider + [phone] Edelmira Ontiveros APRN, [facility] Primary Care P rovider Lisa John MD Primary Care Provider Unava ilable Edelmira Ontiveros APRN, [facility] Primary Care P rovider Reason for Visit * Reason Onset Date Comments Medication Refill 11/27/2020 Encounter Details Date Type Department Care Team (Late st Contact Info) Description 11/27/2020 Refill [facility] - Primary Care - [place] [address] [place] [address] Teri Quevedo MD [address] [place] [address] Medication Refill Social History Tobacco [...] on file 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 NT SOURCER * Telephone Encounter - Minal Wang - 11/27/2020 10:46 AM CST Received a faxed Rx request from pharmacy. Reordered refill medication(s) requested and pended for nurse and physician/ELLE review. Refill encounter routed to nurse Quangrirohith's pool for processing. NT SOURCER documented in this encounter Plan of Treatment Not on file documented as of this encounter Visit Diagnoses Not on filedocumented in this encounter Additional Health Concerns Infection Onset Date Last Indicated Resolved Time COVID - 19 Confirmed 03/27/2022 03/27/2022 022 12:16 AM CDT COVID - 19 08/11/2022 08/11/2022 08/21/2022 12:1 6 AM TALENT SOURCER COVID - 19 01/22/2023 01/22/2023 02/01/2023 12:1 6 AM CDT COVID - 19 04/05/2024 04/05/2024 04/05/2024 11:0 6 AM CDT COVID - 19 Confirmed 04/05/2024 04/05/2024 024 12:19 AM CDT Assessment Noted Time PHQ-9 Depression Total Score: 1 11/10/19 19 2:00 PM TALENT SOURCER documented as of this encounter Care Teams Laser/Electro Optics Technician Relationship Specialty Start Date End Date Teri Quevedo MD PCP - General Family Medicine 10/15/15 10/23/22 Sharmila Yanes MD [address] [place] [address] PCP - General Family Medicine 10/24/22 10/25/23 Edelmira Ontiveros APRN, LMFT [address] [place] [address] PCP - General Advanced Practice Nurse 10/26/23 Lisa John MD PCP - General Urology 04/05/25 04/09/25 Edelmira Ontiveros APRN, LMFT [address] [place] [address] PCP - General Advanced Practice Nurse 04/10/25 Charlie Berry MD [address] [place] [address] [place] [address] [place] [phone] Neurologist Neurology 05/13/18 documented as of this encounter
--- OUTSIDE RECORDS SUMMARY | 2025-09-16 14:33 | XMS_ITS | Clinical Summary ---
Author Organization [facility] [employer] Address [address] [facility] [place] [address] Care Team Providers Care Remelt Operator Name Role Phone Unavailable Primary Care Provider Unavailabl e Source Comments [facility] [employer],non-owned Affiliates and Associated Physician Practices is amultiple site organization consisting of ambulatory clinics and hospital sitesin [place], [place], [place] and [place]. This disclosure is being madepursuant to the Care Everywhere program and may not contain all information available regarding this patient. Last updated 18.[facility] [employer] Allergies Active Allergy Reactions Criticality Noted Date [...] Colitis Brother 3 Parkinson's Disease Brother 4 PA Father Anxiety Disorder Mother Tumor Mother Relation Name Status Comments Brother 1 Alive x4 Brother 2 Brother 3 Brother 4 Father (Age 71) PA Mother (Age 64) Brain Tumo r Social History Tobacco Use Types Packs/Day Years Used Date Smoking Tobacco: Never Smokeless Tobacco: Never Tobacco Cessation:Counseling Given: No Alcohol Use Standard Drinks/Week Comments Yes 6 (1 standard drink = 0.6 oz pur e alcohol) 6 pack a week Sex and Gender Information Value Date Recorded Sex Assigned at Not on file 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 Creatinine 1.18 0.50 - 1.30 mg/dL 02/05/2016 10:[address] [facility] eGFR by MDRD >60 >60 mL/min/1.7 3m2 02/05/2016 10:[address] [facility] eGFR by MDRD >60 >60 mL/min/1.7 3m2 02/05/2016 10:[address] [facility] Blood BLOOD SPECIMEN / Unknown Venipuncture / Unknown 02/05/2016 9:50 AM CDT 02/05/2016 9:56 AM CDT Cas Reis MD LAB - CHEMISTRY ORDERABLES Final Result [facility] [address] [place] [address] from Last 3 Months or Most Recently Relevant to Health Maintenance [place] [address] [place] [address] [place]/BLUE BLUE CROSS [facility]
--- OUTSIDE RECORDS SUMMARY | 2025-09-16 14:33 | XMS_ITS | Clinical Summary ---
Author Organization [facility] Address [address] [place] [address] Phone Care Team Providers Care Booster Pump Operator Name Role Phone Charlie Berry MD Unavailable Edelmira Ontiveros APRN, PROGRAM CHECKER Primary Care P rovider Allergies Active Allergy Reactions Criticality Noted Date Comments Ashok Inhibitors Nausea,Other (see Comments) 09/2016 Exacerbates GLRD Medications Aspirin 81 MG Tablet Take 162 mg by mouth daily. Active Magnesium 250 MG Tablet Take 250 mg by mouth nightly. Active kungawtz-ndgvcgoef-jq xamethasone (Maxitrol) 0.1 % Suspension Place 1 Drop in affected eye(s) 4 times daily. 5 mL 12/15/19 24 Active Additional Information Patient not taking.Reported on 02/20/2025 fluticasone (FLONASE) 50 MCG/ACT Suspension 1 [place] by Nasal route daily. Use in each nostril as directed. 18.2 mL 12/15/19 24 Active Nara Visa-3 Fatty Acids (fish oil) 1200 MG Capsule [...] Type Department Care Team Description 07/22/2025 [facility]ill [facility] [address] [place] [address] Edelmira Ontiveros APRN, CNP Medication Refill 07/22/2025 [facility]ill [facility] [place] [address] Edelmira Ontiveros APRN, CNP Medication Refill 07/21/2025 [facility]ill [facility] [address] [place] [address] Edelmira Ontiveros APRN, CNP Medication Refill 06/28/2025 [facility] [place] [address] Edelmira Ontiveros APRN, CNP Medication Refill from [...] Undefined 07/19,07/19/2015,08/07/2014 Pneumococcal conjugate PCV20 , polysaccharide VTM012 conjugate, adjuvant, PF 10/24/2022 TDAP Vaccine 05/17/2021,07/08/2015,08/06/2010 [...] oz pur e alcohol) occasionally [facility] Utilities Answer Date Recorded In the past 12 months has [employer], gas, oil, or water [employer] threatened to shut off services in your home? Patient declined 01/10/2025 Social Connection and Isolation Panel Answer Date Recorded In a typical week, how many times do you talk on the phone with family, friends, or neighbors? Patient declined 01/10/2025 How often do you get togethe r with friends or relatives? Patient declined 01/10/2025 How often do you attend restoration or gnosticist serv ices? Patient declined 01/10/2025 Do you belong to any clubs o r organizations such as restoration groups, unions, fraternal or athletic groups, or [...] Score - Questions 1-9 0 06/0 10/2024 [facility] - Occupational [...] any time in the past 12 m [facility], were you homeless or living in a [place] facility (including now)? Patient declined 01/10/2025 Education Answer Date Recorded What is the highest level of school you have completed or the highest degree you have received? 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 A negative [...] (Kelton Garland al, N Engl J Med 2014;370(14):1119-7233) The normal value (reference range) for this assay is negative. COLOGUARD RE-SCREENING RECOMMENDATION: Periodic colorectal cancer screening is an important part of preventive healthcare for asymptomatic individuals at average risk for colorectal cancer. Following a negative Cologuard result, the [place] Cancer Society and U.S. Multi-Society Task Force screening guidelines recommend a Cologuard re-screening interval of 3 years. References: [place] [employer] Society Guideline for Colorectal Cancer Screening: https://www.cancer.org/cancer/ylavy-qeszhx-vabdxe/pkgjpiowf-blebwohdh-ipbmgzc/ acs-recommendations.html.; Ori MAGAÑA, Ron MURPHY, Judy NavarroK, Colorectal Cancer Screening: Recommendations for Physicians and Patients from the U.S. Multi-Society Task Force on Colorectal Cancer Screening , Am J Gastroenterology 2017; 112:2761-8208. TEST DESCRIPTION: Composite algorithmic analysis of stool [...] Mendes et al, N Engl J Med 2014;370(14):5016-4907.) Cologuard may produce a false negative or false positive result (no colorectal cancer or precancerous polyp present at colonoscopy follow up). A negative Cologuard test result does not guarantee the absence of CRC or advanced adenoma (pre-cancer). The current Cologuard screening interval is every 3 years. ([place] Cancer Society and U.S. Multi-Society Task Force). Cologuard performance data in a 10,000 patient pivotal study using colonoscopy as the reference method can be accessed at the following location: www.[place]/results. Additional description of the Cologuard test process, warnings and precautions can be found at www.[employer]. Stool 11/30/2024 9:00 AM CDT 12/01/2024 9:49 AM CDT Edelmira Ontiveros APRN, CNP BODY FLUIDS & S TOOLS ORDERABLES Final Result [place], [facility] [address] [place] [address], [place] [address] [place] [address] * HEPATITIS C ANTIBODY (04/24/2023 10:20 AM CDT) hepatitis C antibody 0.07 <1 S/CO [facility] [id number] B 04/24/2023 10:28 PM CDT [facility] Comment: Signal/Cutoff ratio < 0.79 is Nondetected Signal/Cutoff ratio 0.80-0.99 is Grayzone Signal/Cutoff ratio > 0.99 is Detected Supplemental assays are recommended if signal/cutoff ratio is >/=1.00. Signal/cutoff ratio result >/= 5.00 is 97% predictive of positivity for recombinant immunoblot assay (RIBA) and will be reported to the [place] Department of Public Health as required. Blood Venipuncture / Unknown 04/24/2023 10:20 AM CDT 04/24/2023 10:20 AM CDT us Sharmila Yanes MD CHEMISTRY ORDERABLES Final R esult [facility] [address] [place] [address], [place] * (ABNORMAL) PSA DIAGNOSTIC,TOTAL (02/21/2020 10:23 AM CDT) PSA, TOTAL (PROSTATIC SPECIFIC ANTIGEN) 8.46(H) <=4.00 ng/mL 02/21/2020 1:43 PM CDT [facility] Blood Venipuncture / Unknown 02/21/2020 10:23 AM CDT 02/21/2020 10:23 AM CDT Narrative [facility] - 02/21/2020 1:43 PM CDT PSA NOTE: The PSA value should be used in conjunction with information available from clinical evaluation and other diagnostic procedures. Carleen Malin PAC CHEMISTRY ORDERABLES Sun l Result Performing Organization Address City/[facility] Co de Phone Number [facility] [address] [place] [address] from Last 3 Months or Most Recently Relevant to Health Maintenance Insurance [facility] Care Teams Booster Pump Operator Relationship Specialty Start Date End Date Edelmira Ontiveros APRN, PROGRAM CHECKER [address] [place] [address] PCP - General Advanced Practice Nurse 04/10/25 Charlie Berry MD [address] [address] Neurologist Neurology 05/13/18
--- OUTSIDE RECORDS SUMMARY | 2025-09-16 14:34 | XMS_ITS | Encounter Summary ---
Author Organization [facility] Healthcare Address [address] [place] [address] Care Team Providers Care Lens Block Gauger Name Role Phone Martine Joseph MD Unavailable [phone] Nanda Rizo MD Primary Care Provide r Lisa John MD Unavailable [phone] Encounter Details Date Type Department Care Team (Late st Contact Info) Description 08/23/2025 Results Follow-Up [facility] Group [facility] [place] [address] [place] [address] Jacinta Sarah NP [address] [facility] [address] [place] [address] Throat culture Throat Social History [...] often do you attend chur ch or yazidi services? More than 4 times per year 07/18/2025 Do you belong to any clubs o r organizations such as sabianist groups, unions, fraternal or athletic groups, or [...] any time in the past 12 m [facility], were you homeless or living in a custodial (including now)? 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 Gender Identity Not on file Sexual Orientation Not on file documented as of this encounter Plan of Treatment Not on file documented as of this encounter Visit Diagnoses Not on filedocumented in this encounter Care Teams Lens Block Gauger Relationship Specialty Start Date End Date Nanda Rizo MD [address] [facility] [address] [place] [address] PCP - General Family Medicine 05/01/25 Martine Joseph MD [address] [facility] [address] [place] [address] Consulting Physician Cardiology 05/01/25 Lisa John MD [address] [facility] [address] [place] [address] Referring Physician Urology 05/01/25 documented as of this encounter
--- OUTSIDE RECORDS SUMMARY | 2025-09-16 14:34 | XMS_ITS | Clinical Summary ---
Author Organization [facility] Medical Office Building B Address [address] [place] [address] Care Team Providers Care Dredge Pipe Operator Name Role Phone Martine Joseph MD Unavailable [phone] Nanda Rizo MD Primary Care Provide r Lisa John MD Unavailable [phone] Allergies No known active allergies Medications atorvastatin [...] 05/01/2025 Assessment & Plan (08/31/2025 9:41 AM CREPE MAKER): Assessment & Plan (07/31/2025 5:36 PM CREPE MAKER): Assessment & Plan (06/01/2025 10:11 AM CDT): [...] 10/06/2022 Assessment & Plan (07/31/2025 5:36 PM CREPE MAKER): Bp in the office today BP Readings [...] 10/06/2022 Assessment & Plan (07/31/2025 5:36 PM CREPE MAKER): Assessment & Plan (04/27/2025 12:22 PM CDT): STEFANIE (obstructive sleep apnea) 10/06/2022 Assessment & Plan (04/27/2025 12:22 PM CDT): Laryngeal spasm 09/29/2022 Assessment & Plan (09/29/2022 11:47 AM CREPE MAKER): Omeprazole 40 mg in the morning 30-60 minutes before first meal of the day Continue Pepcid famotidine 40 mg at bedtime Referral to GI for colonoscopy and EGD Sensorineural hearing loss ( SNHL) of left ear with restricted hearing of right ear 09/29/2022 Assessment & Plan (09/29/2022 11:47 AM CREPE MAKER): Agree with Hearing aids Prostate cancer 03/28/2021 Overview (08/11/2023): prostate bx 03/2014; neg- psa 9.2 in february 2014 psa 12/2014-5.0 09/2014-7.41 02/2014-9.2 prostate bx neg 03/2014 having some recurrent slow stream; alw ays voids sitting; habit not sure if stream w eaker w ill pay attention restarted flomax 1 w k ago ed- tried viagra 50mg; partially effective w ould like 1x/[place] multiple stress tests neg per patient. Urology [...] 12/29/2016 Assessment & Plan (07/31/2025 5:36 PM CREPE MAKER): The patient was counseled on a heart-healthy, [...] 11/12/2015 Assessment & Plan (07/31/2025 5:36 PM CREPE MAKER): Assessment & Plan (04/27/2025 12:22 PM CDT): Osteoarthritis of knee 11/12/2015 Encounters Date Type Department Care Team Description 08/30/2025 4:30 PM CREPE MAKER Office Visit [facility] Primary Care at [address] [phone] Nanda Rizo MD Memory change (Primary Dx); Class 2 severe obesity due to excess calories with serious comorbidity and body mass index (BMI) of 35.0 to 35.9 in adult 08/30/2025 Telephone [facility] Primary Care at [address] [phone] Nanda Rizo MD 08/23/2025 Results Follow-Up [facility] Care at [address] [phone] Jacinta Sarah NP Throat culture Throat 08/22/2025 12:46 PM CREPE MAKER - 08/22/2025 11:59 PM CREPE MAKER Hospital Encounter [address] [address] Acute viral syndrome Discharge Disposition: Discharge to home or self care 08/22/2025 12:30 PM CREPE MAKER Office Visit [facility] Care at [address] [phone] Arlen Dong NP Acute viral syndrome (Primary Dx) 07/31/2025 4:45 PM CREPE MAKER Office Visit [facility] Primary Care at [address] [phone] Nanda Rizo MD Essential hypertension (Primary Dx); Mixed hyperlipidemia; Type 2 diabetes mellitus with hyperglycemia, without long-term current use of insulin (HCC); Anxiety disorder, unspecified type; Class 2 severe obesity due to excess calories with serious comorbidity and body mass index (BMI) of 35.0 to 35.9 in adult; Memory changes; Nocturia 07/25/2025 [facility] Post Discharge Follow up phone call [address] [address] Cheyenne Anderson RN 07/17/2025 8:12 PM CDT - 07/20/2025 12:38 PM CDT Hospital Encounter [address] [address] Ady Hurley MD Davis, Isabelle Rivera II, MD Complicated UTI (urinary tract infection) (Primary Dx); Gram negative sepsis (HCC) Discharge Disposition: Discharge to home or self care 07/17/2025 6:00 PM CDT Office Visit [facility] at [address] [phone] Jacinta Sarah NP Post-procedural fever (Primary Dx); Tachycardia; Nausea and vomiting, unspecified vomiting type from Last 3 Months Immunizations Immunization Administration Dates Next Due COVID-19 mRNA ([employer]) 0.3 m L (30 mcg) vaccine (12 [...] yrs ago COLONOSCOPY 11 yrs ago in [place] [facility] History Medical History Date Comments Hypertension [...] often do you attend chur ch or adventist services? More than 4 times per year 07/18/2025 Do you belong to any clubs o r organizations such as christianity groups, unions, fraternal or athletic groups, or [...] time in the past 12 m [facility], were you homeless or living in a jail (including now)? No 07/18/2025 [facility] Utilities Answer Date Recorded In the past [...] on file Legal Sex Male 8:39 PM CREPE MAKER Gender Identity Not on file Sexual Orientation Not on file Last Filed Vital Signs Vital Sign Reading Time Taken Comments Blood Pressure 128/74 08/30/2025 4:37 PM CREPE MAKER Pulse 81 08/30/2025 4:37 PM CREPE MAKER Temperature 36.6 C (97.9 F) 08/30/2025 4:37 PM CREPE MAKER Respiratory Rate 18 08/30/2025 4:37 PM CREPE MAKER Oxygen Saturation 98% 08/30/2025 4:37 PM CREPE MAKER Inhaled Oxygen Concentration - - Weight 113.1 kg (249 lb 6.4 oz) 08/30/2025 4:37 PM CREPE MAKER Height 177.8 cm (5' 10) 08/30/2025 4:37 PM CREPE MAKER Body Mass Index 35.79 08/30/2025 4:37 PM CREPE MAKER Plan of Treatment Health Maintenance Due Date [...] Comments THROAT CULTURE Routine 08/22/2025 12:46 PM CREPE MAKER Acute viral syndrome POCT RAPID STREP Routine 08/22/2025 12:2 6 PM CREPE MAKER Acute viral syndrome POC INFLUENZA A/B, COVID-19 ANTIGEN Routine 08/22/2025 12:16 PM CREPE MAKER Acute viral syndrome POCT GLUCOSE DEVICE Routine [...] * Throat culture Throat (08/22/2025 12:46 PM CREPE MAKER) Report Final Report: No growth of pathogens. Comment:Testing performed by : [facility], [address] [place]., [address] Throat 08/22/2025 12:4 6 PM CREPE MAKER 08/22/2025 8:42 PM CREPE MAKER Narrative KELLEN MOORE - 08/23/2025 4:44 PM CREPE MAKER Testing performed by [facility]biology [facility] ([phone]). us Arlen Dong NP LAB MICROBIOLOGY - GENERAL ORD ERABLES Final Result KELLEN MOORE [address] [address] Department [place] [address] * POCT rapid strep A (08/22/2025 12:26 PM CREPE MAKER) Rapid Strep A, POC Negative Negative Swab 08/22/2025 12:2 6 PM CREPE MAKER Arlen Dong BLACKJACK DEALER POINT OF CARE TEST ORDERABLES Final Result * POC Influenza A/B, COVID-19 antigen (08/22/2025 12:16 PM CREPE MAKER) Influenza A Ag, POC Negative Negative [facility] Influenza B Ag, POC Negative Negative [facility] COVID-19 Ag POC Presumptive Negative Presumptive Negative, Invalid [facility] Nasal 08/22/2025 12:1 6 PM CREPE MAKER Arlen Dong BLACKJACK DEALER POINT OF CARE TEST ORDERABLES Final Result Performing Organization Address [facility] Co de Phone Number [facility] [address] [place] [address] * POCT glucose (07/20/2025 11:58 AM CDT) Glucose, POC 149 70 - 199 mg/dL Blood 07/20/2025 11:5 8 AM CDT 07/20/2025 11:58 AM CDT Isabelle Giang II, MD LAB POCT ORDERABLES - DEVICE Final Result Performing Organization Address [facility] Co de Phone Number [facility] ([address] Department [place] [address] * POCT glucose (07/20/2025 7:55 AM CDT) Glucose, POC 135 70 - 199 mg/dL Blood 07/20/2025 7:55 AM CDT 07/20/2025 7:55 AM CDT Isabelle Giang II, MD LAB POCT ORDERABLES - DEVICE Final Result Performing Organization Address [facility] Co de Phone Number KELLEN NOWAK ([place]) 1 [facility] Department [place] [address] * eGFR (07/20/2025 4:14 AM CDT) eGFR [...] LAB BLOOD ORDERABLES Final Resu lt [place] [place] 1 [facility] [place] [address] * (ABNORMAL) Differential, auto (07/20/2025 4:14 AM CDT) Neutrophil abs 4.55 1.50 - 6.50 K/cumm Imm gran abs 0.02 0.00 - 0.10 K/cumm [facility] ([place]) Lymphocyte abs 0.73(L) 0.80 - 3.30 K/cumm [facility] ([place]) Monocyte abs 0.70 0.20 - 0.80 K/cumm [facility] ([place]) Eosinophil abs 0.03 0.00 - 0.50 K/cumm [...] BLOOD ORDERABLES Final Resul t KELLEN SHE ([place]) 1 [facility] Department [place] [address] * (ABNORMAL) CBC with auto differential (07/20/2025 [...] NP LAB BLOOD ORDERABLES Final Resul t [facility] ([place]) 1 [facility] [place] [address] * (ABNORMAL) Comprehensive metabolic panel (07/20/2025 4:14 [...] Final Resu lt [facility] ([place]) 1 [facility] Department of Laboratories [place], [place] [id number] * POCT glucose (07/20/2025 3:43 AM CDT) Glucose, POC 149 70 - 199 mg/dL Blood 07/20/2025 3:43 AM CDT 07/20/2025 3:43 AM CDT us Isabelle Giang II, MD LAB POCT ORDERABLES - DEVICE Final Result KELLEN NOWAK ([place]) 1 [facility] [place] [address] * POCT glucose (07/19/2025 9:28 PM CDT) Glucose, POC 132 70 - 199 mg/dL Blood 07/19/2025 9:28 PM CDT 07/19/2025 9:28 PM CDT us Isabelle Giang II, MD LAB POCT ORDERABLES - DEVICE Final Result Performing Organization Address [facility]/ZIP Co de Phone Number KELLEN NOWAK ([place]) 1 [facility] [place] [address] * POCT glucose (07/19/2025 5:19 PM CDT) Glucose, POC 192 70 - 199 mg/dL Blood 07/19/2025 5:19 PM CDT 07/19/2025 5:19 PM CDT us Isabelle Giang II, MD LAB POCT ORDERABLES - DEVICE Final Result Performing Organization Address City/[facility]/ZIP Co de Phone Number KELLEN NOWAK ([place]) 1 [facility] [place] [address] * POCT glucose (07/19/2025 11:46 AM CDT) Glucose, POC 164 70 - 199 mg/dL Blood 07/19/2025 11:4 6 AM CDT 07/19/2025 11:46 AM CDT us Isabelle Giang II, MD LAB POCT ORDERABLES - DEVICE Final Result KELLEN NOWAK ([place]) 1 [facility] [place] [address] * POCT glucose (07/19/2025 8:49 AM CDT) Glucose, POC 152 70 - 199 mg/dL Blood 07/19/2025 8:49 AM CDT 07/19/2025 8:49 AM CDT us Isabelle Giang II, MD LAB POCT ORDERABLES - DEVICE Final Result Performing Organization Address City/[facility]/ZIP Co de Phone Number [facility] ([place]) 1 [facility] [place] [address] * eGFR (07/19/2025 4:08 AM CDT) eGFR [...] ORDERABLES Final Resu lt Performing Organization Address City/[facility]/ZIP Co de Phone Number [facility] ([place]) 1 [facility] [place] [address] * (ABNORMAL) Differential, auto (07/19/2025 4:08 AM [...] Final Resul t [facility] ([place]) 1 [facility] [place] [address] * (ABNORMAL) CBC with auto differential (07/19/2025 [...] ORDERABLES Final Resul t Performing Organization Address City/[facility]/ZIP Co de Phone Number [facility] ([place]) 1 [facility] [place] [address] * (ABNORMAL) Hemoglobin A1c (07/19/2025 4:08 AM CDT) Hgb A1C 6.7(H) 4.0 - 5.6 % Estimated Average Glucose 146 mg/dL KELLEN RODRIGUES) Comment: The ADA recommends reporting an estimated Average Glucose (eAG) with all Hemoglobin A1c results using the equation derived from a study of 507 normal and diabetic adults. Minority populations were underrepresented and children were not included. (Diabetes Care 31:5052-6163, 2008). The eAG is not equivalent to a fasting glucose. Blood 07/19/2025 4:08 AM CDT 07/19/2025 5:06 AM CDT us Isabelle Giang II, MD LAB BLOOD ORDERABLES F inal Result KELLEN NOWAK ([place]) 1 [facility] Department [place] [address] * (ABNORMAL) Lipid panel (07/19/2025 4:08 AM [...] MD LAB BLOOD ORDERABLES F inal Result [facility] ([place]) 1 [facility] Department [place] [address] * (ABNORMAL) Comprehensive metabolic panel (07/19/2025 4:08 [...] ORDERABLES Final Resu lt Performing Organization Address City/[facility]/ZIP Co de Phone Number KELLEN NOWAK ([place]) 1 [facility] [place] [address] * POCT glucose (07/19/2025 2:04 AM CDT) Glucose, POC 139 70 - 199 mg/dL Blood 07/19/2025 2:04 AM CDT 07/19/2025 2:04 AM CDT us Isabelle Giang II, MD LAB POCT ORDERABLES - DEVICE Final Result Performing Organization Address [facility]/ZIP Co de Phone Number KELLEN NOWAK ([place]) 1 [facility] [place] [address] * POCT glucose (07/18/2025 8:19 PM CDT) Glucose, POC 160 70 - 199 mg/dL Blood 07/18/2025 8:19 PM CDT 07/18/2025 8:19 PM CDT us Isabelle Giang II, MD LAB POCT ORDERABLES - DEVICE Final Result Performing Organization Address City/[facility]/ZIP Co de Phone Number KELLEN NOWAK ([place]) 1 [facility] [place] [address] * POCT glucose (07/18/2025 5:03 PM CDT) [facility] Glucose, POC 174 70 - 199 mg/dL Blood 07/18/2025 5:03 PM CDT 07/18/2025 5:03 PM CDT us Isabelle Giang II, MD LAB POCT ORDERABLES - DEVICE Final Result KELLEN NOWAK ([place]) 1 [facility] Department [place] [address] * TRANSTHORACIC ECHO (TTE) COMPLETE W DOPPLER/CF WO CONTRAST (07/18/2025 2:51 PM CDT) [facility] Estimated EF 60-70 % CONS SCIMAGE EF Mod BP 57 % CONS SCIMAGE Anatomical Region Laterality Modality Ultrasound 07/18/2025 2:33 PM CDT Narrative 07/18/2025 3:42 PM CDT [address] [address] Echocardiogram Report Patient Name: MARKUS CHRISTOPHER : 1960 Study Date: 07/18/2025 2:33:02 PM Sex: M Tech: Location: [id number] Ref Provider: ISABELLE GIANG Height(Cm): BSA: Weight(Kg): [...] Procedure Note Martine Joseph MD - 07/18/[address] [address] Echocardiogram Report Patient Name: MARKUS CHRISTOPHER : 1960 Study Date: 07/18/2025 2:33:02 PM Sex: M Tech: Location: [id number] Ref Provider: ISABELLE GIANG Height(Cm): BSA: Weight(Kg): Quality: Adequate Order Provider: ISABELLE GIANG PROCEDURES: Echocardiographic Report: Transthoracic echocardiogram with complete 2D, M-Mode, and color Dopplerexamination. INDICATIONS: bacteremia. MEASUREMENTS: 2D/MM Value Range Doppler ValueRange EF Teich MM 57.0 % [ 52.0 - 72.0 ] YOLIS Vmax 3.34cm2 EF Mod BP 57 % [...] Isabelle Giang II, MD CV ECHO PROCEDURES [facility] al Result * POCT glucose (07/18/2025 11:38 AM CDT) Glucose, POC 173 70 - 199 mg/dL Blood 07/18/2025 11:3 8 AM CDT 07/18/2025 11:38 AM CDT us Isabelle Giang II, MD LAB POCT ORDERABLES - DEVICE Final Result KELLEN NOWAK ([place]) 1 [facility] [place] [address] * eGFR (07/18/2025 8:20 AM CDT) eGFR [...] BLOOD ORDERABLES Final Resu lt KELLEN NOWAK ([place]) 1 [facility] [place] [address] * (ABNORMAL) Differential, auto (07/18/2025 8:20 AM [...] CDT 07/18/2025 8:39 AM CDT Kamal Lizzette BLACKJACK DEALER LAB BLOOD ORDERABLES Final Resul t Performing Organization Address City/[facility]/ZIP Co de Phone Number [facility] ([place]) 1 [facility] [place] [address] * (ABNORMAL) CBC with auto differential (07/18/2025 8:20 AM CDT) Pathologist [facility] WBC 9.99(H) 3.80 - 9.90 K/cumm Hgb [...] ORDERABLES Final Resul t Performing Organization Address City/[facility]/ZIP Co de Phone Number [facility] ([place]) 1 [facility] Department [place] [address] * Comprehensive metabolic panel (07/18/2025 8:20 AM CDT) [facility] Sodium 138 135 - 145 mmol/L Potassium, [...] Final Resu lt [facility] ([place]) 1 [facility] Department [place] [address] * POCT glucose (07/18/2025 8:11 AM CDT) Glucose, POC 136 70 - 199 mg/dL Blood 07/18/2025 8:11 AM CDT 07/18/2025 8:11 AM CDT Ady Hurley MD LAB POCT ORDERABLES - DEVICE Fi nal Result KELLEN NOWAK [place]) 1 [facility] [place] [address] * POCT glucose (07/18/2025 2:18 AM CDT) Glucose, POC 148 70 - 199 mg/dL Blood 07/18/2025 2:18 AM CDT 07/18/2025 2:18 AM CDT Ady Hurley MD LAB POCT ORDERABLES - DEVICE Fi nal Result Performing Organization Address [facility] Co de Phone Number KELLEN NOWAK [place]) 1 [facility] [place] [address] * CT Abdomen Pelvis W Contrast (07/17/2025 10:06 PM CDT) Anatomical Region Laterality Modality Body N/A Computed Tomogra phy 07/17/2025 10:1 8 PM CDT Impressions 07/17/2025 10:18 PM CDT 1. No acute process is seen. No findings are seen to explain the patient's symptoms. Electronically signed by: Segun Fletcher M.D. Narrative 07/17/2025 10:18 PM CDT MEDICAL RECORDS NUMBER: [id number] PROCEDURE: CT ABDOMEN PELVIS W CONTRAST DATE: [...] Fletcher MD - 07/17/2025 MEDICAL RECORDS NUMBER: [id number] PROCEDURE: CT ABDOMEN PELVIS W CONTRAST DATE: [...] media): 14.7 hours Comment:Testing performed by : [facility], [address] [place] [address]., [id number] Report Final Report: Klebsiella pneumoniae For susceptibility results, refer to accession number [id number] on the blood culture from 07/17/2025 (.) KELLEN NOWAK ([place]) Comment:Testing performed by : [facility], [address] [place] [address]., [id number] Organism KLEBSIELLA PNEUMONIAE KELLEN NOWAK ([place]) Blood (Peripheral) 07/17/2025 9:41 PM CDT 07/18/2025 12:36 AM CDT Narrative KELLEN NOWAK ([place]) - 07/23/2025 8:02 AM CREPE MAKER From a different site than #1. Draw [...] performance characteristics have been verified by the [facility]biology [facility]. For questions about this culture, contact the Microbiology Laboratory at [phone]. Interpretive data was last revised on 24. Carline Crocker NP LAB MICROBIOLOGY - GENERAL ORDER SRIRAM Final Result KELLEN NOWAK ([place]) 1 [facility] [place] [address] * (ABNORMAL) Blood culture Blood Peripheral (07/17/2025 9:41 PM CDT) Direct Specimen Exam Molecular Analysis: Klebsiella pneumoniae group detected by bam ePlex BCID-GN panel. This test does not exclude the possibility of a mixed bacterial infection. Notification of: Klebsiella pneumoniae group called to and read back by: Hyun Jefferson CHAIR PAD MAKER ,[phone] on 07/18/2025 17:43:33 by: Tamara Lovell [place] Results phoned to and read back by: Amanda Ignacio RN MCU on 07/18/2025 17:53:15 by: [email or web address] Comment:Testing performed by : [facility], [address] [place] [address]., [id number] Direct Specimen Exam Stain: Gram Negative Bacilli Time to culture positivity (anaerobic media): 10.4 hours Time to culture positivity (aerobic media): 10.9 hours Notification of: Gram Negative Bacilli called to and read back by: Myla Manzo MT [phone] on 07/18/2025 11:43:34 by: Luis Rodgers Test result called to and read back by Sheryl Yuen [facility]U on 07/18/2025 11:47:11 by Myla Manzo. KELLEN NOWAK ([place]) Comment:Testing performed by : [facility], [address] [place] [address]., [id number] Report Final Report: Klebsiella pneumoniae (.) KELLEN SHE ([place]) Comment:Testing performed by : [facility], [address] [place]., [address] Organism KLEBSIELLA PNEUMONIAE KELLEN NOWAK ([place]) Blood [...] performance characteristics have been verified by the [facility]biology [facility]. For questions about this culture, contact the Microbiology Laboratory at [phone]. Interpretive data was last revised on 24. [...] pneumoniae Piperacillin/Tazobactam INTERPRE TATION Susceptible us Carline rCocker NP LAB MICROBIOLOGY - GENERAL ORDER SRIRAM Final Result [facility] ([place]) 1 [facility] [place] [address] * (ABNORMAL) Urinalysis reflex to microscopic and [...] tendency for uric acid stone formation. Source: [facility] [place] Current Interpretive Data was last revised on [...] SRIRAM Final Result KELLEN NOWAK ([place]) 1 [facility] Department [place] [address] * (ABNORMAL) Urinalysis, microscopic only (07/17/2025 8:30 PM CDT) WBC, ur >50(A) 0 - 5 /HPF RBC, ur 11-20(A) 0 - 2 /HPF [facility] ([place]) Epithelial cells, squamous, ur 1-5 0 - 5 /HPF [facility] ([place]) Bacteria, ur 4+(A) [facility] ([place]) Mucous, ur Present(A) CERNER A ([place]) Culture Reflex Comment Reflex to urine culture will be performed. KELLEN [facility] ([place]) Urine 07/17/2025 8:30 PM CDT 07/17/2025 8:34 PM CDT us Carline Crocker NP LAB URINE ORDERABLES Final Resul t KELLEN [facility] ([place]) 1 [facility] Department [place] [address] * (ABNORMAL) Urine culture Urine (07/17/2025 8:30 PM CDT) Report Final Report: Greater than or equal to 100,000 colonies/mL of Klebsiella pneumoniae (.) Comment:Testing performed by : [facility], [address] [place]., [address] Organism KLEBSIELLA PNEUMONIAE KELLEN [facility] ([place]) Urine 07/17/2025 8:30 PM CDT 07/18/2025 12:24 AM CDT Narrative KELLEN [facility] ([place]) - 07/20/2025 12:24 PM CDT Urine culture reflexed based upon urinalysis results. Testing performed by [facility] Microbiology [facility] ([phone]) Organism Antibiotic Method Susceptibility Klebsiella pneumoniae Ampicillin [...] GENERAL ORDER SRIRAM Final Result KELLEN NOWAK ([place]) 1 [facility] [place] [address] * XR Chest PA Lateral 2 Views [...] 07/17/2025 8:14 PM CDT MEDICAL RECORDS NUMBER: [id number] PROCEDURE: XR CHEST PA LATERAL 2 VIEWS DATE: 07/17/2025 7:20 PM HISTORY: 64 years old Male. fever Views: 2 COMPARISON: None Procedure Note Segun Fletcher MD - 07/17/2025 MEDICAL RECORDS NUMBER: [id number] PROCEDURE: XR CHEST PA LATERAL 2 VIEWS [...] BLOOD ORDERABLES Final Resul t KELLEN NOWAK ([place]) 1 [facility] [place] [address] * eGFR (07/17/2025 7:26 PM CDT) eGFR [...] BLOOD ORDERABLES Final Resul t KELLEN NOWAK ([place]) 1 [facility] [place] [address] * (ABNORMAL) Differential, auto (07/17/2025 7:26 PM [...] Final Resul t [facility] ([place]) 1 [facility] [place] [address] * (ABNORMAL) CBC with auto differential (07/17/2025 [...] Final Resul t KELLEN NOWAK ([place]) 1 [facility] [place] [place] [address] * (ABNORMAL) Comprehensive metabolic panel (07/17/2025 7:26 [...] Final Resul t [facility] ([place]) 1 [facility] [place] [address] * Albumin Creatinine Ratio, Urine (05/10/2025 9:10 [...] MD LAB URINE ORDERABLES Final Result KELLEN [address] [facility] Department [place] [address] * Stool DNA - Cologuard (12/06/2024) Stool 12/06/2024 Historical Provider LAB BODY FLUIDS AND STOOL S ORDERABLES Final Result EXTERNAL LAB from Last 3 Months or Most Recently Relevant to Health Maintenance Insurance [facility] Member Subscriber Plan / Payer (Ef fective 1899-Present) Name:Markus Christopher Relation to Subscriber:Self Name:Markus Christopher Payer ID:[id number] (IC) Group ID:[id number] Type:[facility] Address: [facility] [id number] [address] [facility] FEDERAL Advance Directives For more information, please contact: [phone] * Full Code (Latest Code Status on File) Date Activated Date Inactivated Comments 07/18/2025 12:11 AM 07/20/2025 4:43 PM Care Teams Dredge Pipe Operator Relationship Specialty Start Date End Date Nanda Rizo MD [address] [place] [address] [address] [place] [address] PCP - General Family Medicine 05/01/25 Martine Joseph MD 2 [facility] [facility] [address] [place] [address] Consulting Physician Cardiology 05/01/25 Lisa John MD [address] [facility] [address] [place] [address] Referring Physician Urology 05/01/25
--- OUTSIDE RECORDS SUMMARY | 2025-09-16 14:34 | XMS_ITS | Encounter Summary ---
Author Organization [facility] Address [address] [place] [id number] Phone Care Team Providers Care Equipment Specialist Name Role Phone Teri Quevedo MD Primary Care Provider + [phone] Charlie Berry MD Unavailable Sharmila Yanes MD Primary Care Provider + [phone] Edelmira Ontiveros APRN, [facility] Primary Care P rovider Lisa John MD Primary Care Provider Unava ilable Edelmira Ontiveros APRN, [facility] Primary Care P rovider Reason for Visit * Reason Comments Medication Refill Encounter Details Date Type Department Care Team (Late st Contact Info) Description 10/18/2021 Refill [facility] - Family Medicine [facility] [address] [place] [address] Teri Quevedo MD [address] [place] [address] Medication Refill Social History Tobacco [...] on file Legal Sex 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 No / Unsure 10/14/2021 1:33 PM MOISTURE TESTER documented as of this encounter Miscellaneous Notes * Telephone Encounter - Tracey Amaro RN - 10/18/2021 9:15 AM MOISTURE TESTER Medication approved and signed per standing order protocol. TURE TESTER documented in this encounter Plan of Treatment Not on file documented as of this encounter Visit Diagnoses Diagnosis Essential (primary) hypertension Unspecified essential hypertension documented in this encounter Additional Health Concerns Infection Onset Date Last Indicated Resolved Time COVID - 19 Confirmed 03/27/2022 03/27/2022 022 12:16 AM CDT COVID - 19 08/11/2022 08/11/2022 08/21/2022 12:1 6 AM MOISTURE TESTER COVID - 19 01/22/2023 01/22/2023 02/01/2023 12:1 6 AM CDT COVID - 19 04/05/2024 04/05/2024 04/05/2024 11:0 6 AM CDT COVID - 19 Confirmed 04/05/2024 04/05/2024 024 12:19 AM CDT Assessment Noted Time PHQ-9 Depression Total Score: 1 11/10/19 19 2:00 PM MOISTURE TESTER documented as of this encounter Care Teams Equipment Specialist Relationship Specialty Start Date End Date Teri Quevedo MD PCP - General Family Medicine 10/15/15 10/23/22 Sharmila Yanes MD [address] [place] [address] PCP - General Family Medicine 10/24/22 10/25/23 Edelmira Ontiveros APRN, [employer] [address] [place] [address] PCP - General Advanced Practice Nurse 10/26/23 Lisa John MD PCP - General Urology 04/05/25 04/09/25 Edelmira Ontiveros APRN, [employer] [address] [place] [address] PCP - General Advanced Practice Nurse 04/10/25 Charlie Berry MD [address] [place], [place] [address] [place] [address] [place] [phone] Neurologist Neurology 05/13/18 documented as of this encounter
--- OUTSIDE RECORDS SUMMARY | 2025-09-16 14:34 | XMS_ITS | Encounter Summary ---
Author Organization [facility] Address [address] [place] [id number] Phone Care Team Providers Care Stunner Animal Name Role Phone Teri Quevedo MD Primary Care Provider + [phone] Charlie Berry MD Unavailable Sharmila Yanes MD Primary Care Provider + [phone] Edelmira Ontiveros APRN, [facility] Primary Care P rovider Lisa John MD Primary Care Provider Unava ilable Edelmira Ontiveros APRN, [facility] Primary Care P rovider Reason for Visit * Reason Comments Medication Refill Encounter Details Date Type Department Care Team (Late st Contact Info) Description 04/25/2021 [address] [facility] - Primary Care - [place] [address] [place] [address] Teri Quevedo MD [address] [place] [address] Medication Refill Social History Tobacco Use [...] on file Legal Sex 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 AGENT Gender Identity Not on file Sexual Orientation Not on file 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 Not on file [...] 19 08/11/2022 08/11/2022 08/21/2022 12:1 6 AM NARCOTICS AGENT COVID - 19 01/22/2023 01/22/2023 02/01/2023 12:1 6 AM CDT COVID - 19 04/05/2024 04/05/2024 04/05/2024 11:0 6 AM CDT COVID - 19 Confirmed 04/05/2024 04/05/2024 024 12:19 AM CDT Assessment Noted Time PHQ-9 Depression Total Score: 1 11/10/19 19 2:00 PM NARCOTICS AGENT documented as of this encounter Care Teams Stunner Animal Relationship Specialty Start Date End Date Teri Quevedo MD PCP - General Family Medicine 10/15/15 10/23/22 Sharmila Yanes MD [address] [place] [address] PCP - General Family Medicine 10/24/22 10/25/23 Edelmira Ontiveros APRN, [employer]TL INFORMATICA [employer]CHIT[employer] [address] [address] PCP - General Advanced Practice Nurse 10/26/23 Lisa John MD PCP - General Urology 04/05/25 04/09/25 Edelmira Ontiveros APRN, [employer] [address] [place] [address] PCP - General Advanced Practice Nurse 04/10/25 Charlie Berry MD [address] [place] [address] [place] [phone] Neurologist Neurology 05/13/18 documented as of this encounter
--- NOTE | 2025-09-16 14:52 | ED.URI ---
HPI - URI/Sore Throat General Chief Complaint: Upper Respiratory Infection Stated Complaint: sinus infection Time Seen by Provider: 09/16/25 14:02 History of Present Illness HPI Narrative: Patient is a 64-year-old male who presents to the ER with a 1 week history of a tickle in my throat, cough, right-sided clogged ear, and congestion. He denies any recent fevers, chest pain, lower extremity edema, or shortness of breath. Patient endorses a history of prostate cancer, short-term memory loss, diabetes, vertigo, high blood pressure, cataracts, and hyperlipidemia. He reports he has an established agriscience teacher and primary care provider. Related Data Home Medications ?Medication ?Instructions ?Recorded ?Confirmed ?Last Taken ?Type aspirin 81 mg tablet,delayed 08/13/19 08/08/24 Unknown History release (Aspir-) atorvastatin 20 mg tablet 20 mg PO HS 08/13/19 08/08/24 Unknown History escitalopram oxalate 10 mg tablet 10 mg PO DAILY 08/13/19 08/08/24 Unknown History (Lexapro) famotidine 10 mg tablet 10 mg PO BID 08/13/19 08/08/24 Unknown History losartan 100 mg tablet 100 mg PO DAILY 08/13/19 08/08/24 Unknown History tamsulosin 0.4 mg capsule 0.4 mg PO DAILY 08/13/19 08/08/24 Unknown History hydrochlorothiazide 25 mg tablet 25 mg PO DAILY 08/08/24 08/08/24 Unknown History metoprolol succinate 25 mg capsule 50 mg PO 08/08/24 08/08/24 Unknown History sprinkle, ext. release 24 hr Allergies Allergy/AdvReac Type Severity Reaction Status Date / Time No Known Allergies Allergy Verified 09/16/25 12:10 Review of Systems Review of Systems: All systems reviewed & are unremarkable except as noted in HPI and below PMFSH Past Medical History Medical History Degenerative arthritis of knee, bilateral Prostate CA Hypertension GERD (gastroesophageal reflux disease) Anxiety Surgical History Surgical History History of removal of cyst Perianal cyst Family History Family History Father Alcoholism Hypertension Heart disease Mother Depression Heart disease Cerebrovascular accident Thyroid disorder Social History Social History Smoking status: Never smoker Tobacco type: cigars Alcohol intake: current Substance use: never Current Housing: Decline to Answer Concerned About Future Housing: Decline to Answer Difficulty Paying Gas/Electric Bills: Decline to Answer Difficulty Paying for Meds: Decline to Answer Currently Unemployed: Decline to Answer Education: Decline to Answer Difficulty w/ Childcare or Family Care: Decline to Answer Living arrangements: with roommate(s) Occupation/Education: occupation Additional occupation/education comments: cartograpaher Exam Narrative: GENERAL: Well appearing, well-nourished, non-toxic, in no acute distress. HEAD: Normocephalic, atraumatic. PERRLA. Unable to visualize tympanic membranes due to wax. NECK: Supple. No adenopathy, no masses. RESPIRATORY: Airway patent, respirations nonlabored. Clear to auscultation bilaterally, no rales, rhonchi, wheezing. CARDIOVASCULAR: Regular rate and rhythm without murmurs, rubs, or gallops. Peripheral pulses 2+ and equal bilaterally. ABDOMINAL: Soft, nontender, nondistended, no hepatosplenomegaly. Normoactive BS. MUSCULOSKELETAL: Moves all extremities. Strength/ROM intact without gross deformities. SKIN: Warm, dry, normal color. No rashes. NEURO: A&O X3. Speech clear. Cranial nerves II-XII intact. No ataxic movements. PSYCHIATRIC: Appropriate mood and affect. Normal interaction. 1640-after ear flushes and Debrox administration, some of the wax in patient's ears came out. No indications of redness or infection on tympanic membrane Course Vital Signs Vital signs: Vital Signs Temperature 36.4 C 09/16/25 12:08 Pulse Rate 77 09/16/25 12:08 Respiratory Rate 16 09/16/25 12:08 Blood Pressure 143/94 H 09/16/25 12:08 Pulse Oximetry 98 09/16/25 12:08 Oxygen Delivery Room Air 09/16/25 12:08 Temperature 36.4 C 09/16/25 12:08 Pulse Rate 77 09/16/25 12:08 Respiratory Rate 16 09/16/25 12:08 Blood Pressure 143/94 H 09/16/25 12:08 Pulse Oximetry 98 09/16/25 12:08 Oxygen Delivery Room Air 09/16/25 14:06 MDM MDM Narrative Medical decision making narrative: Patient is a 64-year-old male who presents to the ER with a 1 week history of a tickle in my throat, cough, right-sided clogged ear, and congestion. He denies any recent fevers, chest pain, lower extremity edema, or shortness of breath. Patient endorses a history of prostate cancer, short-term memory loss, diabetes, vertigo, high blood pressure, cataracts, and hyperlipidemia. He reports he has an established agriscience teacher and primary care provider. Labs Ordered: COVID/flu/RSV swab Imaging Ordered: Chest x-ray Medications Ordered: Prednisone p.o., Debrox Results: Pt's chest x-ray indicates No acute pulmonary findings. Severe atherosclerotic aorta. Diagnosis: Upper respiratory infection, impacted ear wax, sinusitis Consults: ENT (outpatient) - already established, cardiology (outpatient) - already established Patient Education/Shared MDM: Results of imaging shared with patient. He reports he has a agriscience teacher, who he saw recently, and does not remember being diagnosed with a severe atherosclerotic aorta. Patient strongly advised to follow-up with his agriscience teacher to ensure his cardiac condition has not changed. He endorses improvement of symptoms following steroid medication administration. Once again, it was explained to patient that the steroids could increase his blood glucose reading. Patient voices concerns about going into a ?diabetic coma but it was explained to patient that a one time dose of oral steroids would not cause that to happen. He was advised to follow-up with his your nose and throat doctor regarding his significant ear wax buildup. Patient strongly advised to maintain hydration status upon discharge and follow-up with his PCP for further evaluation. He will be discharged home with a prescription for the Debrox, Flonase, and Zyrtec. Strict return precautions provided. Patient verbalized understanding and is in agreement with plan. Vital signs stable at time of discharge. All questions answered. Differential Diagnosis Differential Diagnosis: Ear infection, sinusitis, COVID, flu, RSV Lab Data MDM Lab Attestation statement: I personally reviewed the patient's lab results. Labs: Lab Results 09/16/25 Range/Units 12:18 Influenza A (RT-PCR) Negative (Negative) Influenza B (RT-PCR) Negative (Negative) RSV (RT-PCR) Negative (Negative) SARS-CoV-2 RNA (RT-PCR) Negative (Negative) Imaging Data Attestation: I personally reviewed and interpreted this imaging study as follows: Radiologist's impression: ITS Impressions Chest X-Ray 09/16/25 14:23 IMPRESSION: 1. No acute pulmonary findings. Severe atherosclerotic aorta. Discharge Plan Discharge Clinical Impression: Upper respiratory infection, Sinusitis, Excessive wax in both ears Patient Disposition: Home Condition: Stable Instructions: Antibiotic Form, Sinusitis (ED) Additional Instructions: Please return to the ER with any worsening symptoms. Follow-up with your agriscience teacher regarding the severe atherosclerotic aorta noted on your chest x-ray. If you continue to experience significant wax buildup in your ears, please follow-up with your ENT doctor. You were given a 1 time dose of oral steroids here in the ER today. This may cause your blood sugars to elevate over the next couple of days, but this is not life threatening and your numbers will return to normal. Please continue taking your metformin. Take all medications as prescribed, including regularly scheduled medications. You may use Flonase and Zyrtec to treat your sinus and ear symptoms. Please use Debrox as directed to help decrease the amount of wax in your ears. Patient Language: Sammarinese Prescriptions: New cetirizine [Allergy Relief (cetirizine)] 10 mg tablet 10 mg PO DAILY Qty: 30 0RF fluticasone propionate [24 Hour Allergy Relief] 50 mcg/actuation spray,suspension 2 spray intranasal DAILY Qty: 16 0RF Rx Instructions: administer into each nostril Debrox 6.5 % drops 10 drp EACH EAR Q12H 4 Days Qty: 15 0RF No Action atorvastatin 20 mg Tablet 20 mg PO HS famotidine 10 mg Tablet 10 mg PO BID aspirin [Aspir-81] 81 mg Tablet,Delayed Release (Dr/Ec) tamsulosin 0.4 mg Capsule 0.4 mg PO DAILY losartan 100 mg Tablet 100 mg PO DAILY escitalopram oxalate [Lexapro] 10 mg Tablet 10 mg PO DAILY metoprolol succinate 25 mg capsule,sprinkle,ER 24hr 50 mg PO hydrochlorothiazide 25 mg tablet 25 mg PO DAILY Follow-up/Referrals: Christianne,Maryam [place] [Primary Care Provider] Time of Disposition: 16:52
[2025-09-16] MEDS: CARBAMIDE PEROXIDE 6.5% OT SOLN 15 ML BTL 5 DROP EACH EAR (15:15)
[2025-09-16 17:01] VITALS: BP 138/86; PULSE 80; RESP 16; TEMP 36.6; O2SAT 99
== END 2025-09-16 17:02 | disposition home or self-care (01) ==
PROVIDERS: Emergency Medicine; Emergency Provider Registered Nurse; PCP Chiropractor
DX: J06.9 Acute upper respiratory infection, unspecified (principal); J32.9 Chronic sinusitis, unspecified; H61.23 Impacted cerumen, bilateral; Z20.822 Contact with and (suspected) exposure to COVID-19; I70.0 Atherosclerosis of aorta; I10 Essential (primary) hypertension; E11.9 Type 2 diabetes mellitus without complications; E78.5 Hyperlipidemia, unspecified; K21.9 Gastro-esophageal reflux disease without esophagitis; M17.0 Bilateral primary osteoarthritis of knee; F41.9 Anxiety disorder, unspecified; Z85.46 Personal history of malignant neoplasm of prostate; Z79.82 Long term (current) use of aspirin; Z79.899 Other long term (current) drug therapy
CPT/HCPCS: 69209; 71046; 87637; 99283; A9270; J7512